=== PATIENT | female | born 1955 | race Caucasian/White ===

== ENCOUNTER 2017-02-24 20:32 | Inpatient (IN) | payer BC ==
[~2017-02-24] VITALS: Ht 154.9 cm; Wt 105.0 kg
[~2017-02-24 20:32] MED LIST: ACET-1138 PO; ASPEC325 PO; ATOR-22 PO; CITA40TA4 PO; FRRG PO; HYDR2TAB3 PO; METH500T37 PO; TRAM-10 PO
[2017-02-24] MEDS ORDERED: SODIUM CHLORIDE 0.9% 500ML 500 ML IV STA (20:57)
[2017-02-24] MEDS ORDERED: KETOROLAC TROMETHAMINE 30 MG/ML VIAL IV STA (20:57)
[2017-02-24 21:05] LABS: BASO % 0.3 %; BASO ABS # 0.02 K/uL (0-0.2); COMPLETE YES; EOS % 6.6 %; HEMATOCRIT 33.7 % (37-47); IG% 0.1 %; LYMPH % 35.6 %; LYMPH ABS # 2.57 K/uL (1.2-3.4); MEAN CELL VOLUME 92.1 fL (80-100); MEAN CORPUSCULAR HGB CONC 31.5 g/dl (32-36); MEAN PLATELET VOLUME 9.5 fL (7.4-10.4); MONO % 8.9 %; NEUT % 48.5 %; PLATELET COUNT 484 K/uL (130-400); RED BLOOD COUNT 3.66 M/uL (4.2-5.4); WHITE BLOOD COUNT 7.22 K/uL (4.8-10.8)
--- NOTE | 2017-02-24 21:15 | DIAGNOSTIC IMAGING REPORT ---
SINGLE VIEW CHEST CLINICAL HISTORY: Atypical chest pain. FINDINGS: An AP, portable, upright chest radiograph is compared to study dated 01/22/2017. The examination is degraded by portable technique, large body habitus, and apical lordotic positioning. The cardiomediastinal silhouette is unremarkable. There is nonspecific interstitial thickening. No airspace consolidation, large pleural effusion, or pneumothorax is seen. The skeletal structures are osteopenic. The bony thorax is grossly intact. IMPRESSION: No acute cardiopulmonary abnormality. Electronically signed by: Wm Davila M.D. 02/24/2017 9:13 PM Dictated Date/Time: 02/24/2017 9:12 PM
[2017-02-24 21:18] LABS: BLOOD UREA NITROGEN 13 mg/dl (7-18); BUN/CREATININE RATIO 14.2 (10-20); CARBON DIOXIDE 29 mmol/L (21-32); CHLORIDE 108 mmol/L (98-107); CREATININE 0.89 mg/dl (0.60-1.20); GLUCOSE 99 mg/dl (70-99); POTASSIUM 4.1 mmol/L (3.5-5.1); SODIUM 143 mmol/L (136-145)
[2017-02-24 21:22] LABS: CKMB/CK RATIO 1.5 (0-3.0)
--- NOTE | 2017-02-24 21:23 | EMERGENCY ROOM VISIT NOTE ---
History Report prepared by Any: Marika Patiño Under the Supervision of: Dr. Compa Melvin D.O. First contact with patient: 20:47 Chief Complaint: CHEST PAIN Stated Complaint: CHEST PAIN History of Present Illness The patient is a 62 year old female who presents to the Emergency Room with complaints of constant upper back pain starting yesterday. The pain is located in between her shoulder blades which radiates through to mid-chest. She describes the back pain to be sharp and stabbing. She describes the chest pain to be a dull ache. She has been taking pain medication without relief. She reports intermittent shortness of breath. She has worsening pain with breathing and palpation of back. She denies any pain radiation to arm or jaw. She also complains of a headache. She denies any history of similar symptoms. She does not have a history of heart attack or any issues with aorta. She has a history of hypertension. She is on Aspirin but otherwise denies any blood thinners. Pt denies change in vision, fevers, nausea, vomiting, diarrhea, pain with urination , and melena. She denies any recent trauma or falls, previous head bleeds, recent surgeries with the exception of the hip, hematuria, hemoptysis, or hematemesis. Source of History: patient Onset: yesterday Position: back (upper) Quality: sharp, stabbing Timing: constant Modifying Factors (Worsening): breathing, other (palpation of back) Modifying Factors (Relieving): other (pain medication without relief) Associated Symptoms: + SOB, + headache, No diarrhea, No fevers, No nausea, No vomiting Review of Systems See HPI for pertinent positives & negatives. A total of 10 systems reviewed and were otherwise negative. Past Medical & Surgical Medical Problems: (1) Asthma (2) Hypertension (3) Neuropathy (4) Right Hip DJD Family History Cancer Hypertension Social History Smoking Status: Former Smoker Alcohol Use: none Drug Use: none Marital Status: single Housing Status: lives with family Occupation Status: employed Current/Historical Medications Scheduled Aspirin (Aspirin Ec), 325 MG PO BID Atorvastatin (Atorvastatin Calcium), 20 MG PO HS Gabapentin (Gabapentin), 600 MG PO TID Metoprolol Succinate (Metoprolol Succinate ER), 25 MG PO QAM Trazodone Hcl (Trazodone), 50 MG PO HS Scheduled PRN Acetaminophen (Tylenol), 1,000 MG PO Q8 PRN for Pain Amitriptyline HCl (Amitriptyline HCl), 25 MG PO HS PRN for Sleep Hydromorphone Hcl (Hydromorphone Hcl), 2 MG PO Q4H PRN for Pain Methocarbamol (Methocarbamol), 500 MG PO Q8 PRN for Muscle Relaxer Tramadol HCl (Tramadol HCl), 50 MG PO Q8 PRN for Pain Allergies Coded Allergies: Codeine (Verified Adverse Reaction, Unknown, GI UPSET, 01/27/17) Oxycodone (Verified Adverse Reaction, Unknown, N/V per records , 01/27/17) Propoxyphene (Verified Adverse Reaction, Unknown, GI UPSET, 01/27/17) Physical Exam Vital Signs Date Time Temp Pulse Resp B/P Pulse Ox O2 Delivery O2 Flow Rate FiO2 02/24/17 23:20 77 18 153/87 95 02/24/17 21:52 81 18 143/82 95 Room Air 02/24/17 21:03 75 02/24/17 20:45 95 Room Air 02/24/17 20:35 36.7 86 18 151/98 95 Room Air Physical Exam GENERAL: Sitting up in bed, disheveled, no acute distress, non-toxic EYE EXAM: normal conjunctiva, PERRL and EOM's grossly intact OROPHARYNX: no exudate, no erythema, lips, buccal mucosa, and tongue normal and mucous membranes are moist NECK: supple, no nuchal rigidity, no adenopathy, non-tender CHEST: No reproducible tenderness. LUNGS: Clear to auscultation. Normal chest wall mechanics HEART: no murmurs, S1 normal and S2 normal ABDOMEN: abdomen soft, non-tender, normo-active bowel sounds, no masses, no rebound or guarding. BACK: Back is symmetrical on inspection and there is no deformity, no midline tenderness, no CVA tenderness. Acute reproducible tenderness in the upper thoracic region. SKIN: no rashes and no bruising UPPER EXTREMITIES: upper extremities are grossly normal. LOWER EXTREMITIES: No pitting edema. Calves are equal bilaterally. NEURO EXAM: Normal sensorium, cranial nerves II-XII grossly intact, normal speech, no gross weakness of arms, no gross weakness of legs. Medical Decision & Procedures ER Provider Diagnostic Interpretation: X-ray results as stated below per my review and the radiologist's interpretation : SINGLE VIEW CHEST CLINICAL HISTORY: Atypical chest pain. FINDINGS: An AP, portable, upright chest radiograph is compared to study dated 01/22/2017. The examination is degraded by portable technique, large body habitus, and apical lordotic positioning. The cardiomediastinal silhouette is unremarkable. There is nonspecific interstitial thickening. No airspace consolidation, large pleural effusion, or pneumothorax is seen. The skeletal structures are osteopenic. The bony thorax is grossly intact. IMPRESSION: No acute cardiopulmonary abnormality. Electronically signed by: Wm Davila M.D. 02/24/2017 9:13 PM Dictated Date/Time: 02/24/2017 9:[address]:Per my review, radiologist interpretation. CT ANGIOGRAM OF THE CHEST CLINICAL HISTORY: Atypical chest pain. COMPARISON STUDY: Chest x-ray dated 02/24/2017. TECHNIQUE: Following the IV administration of 115 cc of Optiray 320, CT angiogram of the chest was performed from the upper abdomen to the thoracic inlet utilizing the pulmonary embolus protocol. Images are reviewed in the axial, sagittal, and coronal planes. 3-D MIPS images are created and assessed. IV contrast was administered without complication. CT DOSE: 612.73 mGy.cm FINDINGS: Thyroid: Imaged portions of the thyroid gland are normal in size and attenuation. Thoracic aorta: There is mild atherosclerotic calcification of the thoracic aorta, which is normal in caliber and demonstrates bovine variant arch anatomy. No dissection is seen. Pulmonary vasculature: The pulmonary trunk is normal in caliber. There is pulmonary embolus within the right middle lobe pulmonary artery which extends into segmental and subsegmental branches. Segmental and subsegmental pulmonary emboli also seen within branches of the right lower and and left lower lobe pulmonary arteries. Trace pulmonary embolus is also seen in the right upper lobe segmental and subsegmental vessels. Heart: The heart is mildly enlarged and without pericardial effusion. There are coronary artery calcifications. Lungs and pleural spaces: There is no airspace consolidation typical for pneumonia or pleural effusion. Linear atelectasis is seen in the lingula. Mild air trapping is suggested in the lower lobes. The trachea and central airways are clear. Mediastinum: There are scattered subcentimeter mediastinal lymph nodes. These are not pathologically enlarged by size criteria. Gracia: Clear. Axillae: There is no axillary lymphadenopathy. Upper abdomen: Partially visualized upper abdominal viscera is within normal limits. Skeletal structures: The skeletal structures are osteopenic. Degenerative changes noted throughout the thoracic spine. No lytic or blastic bony lesions are seen. IMPRESSION: 1. Pulmonary emboli as detailed above, predominantly within the segmental and subsegmental branches of the right middle, right lower, and left lower lobes. 2. There is no airspace consolidation or pleural effusion. Air trapping is suggested in the lower lobes. 3. Mild cardiomegaly. Electronically signed by: Wm Davila M.D. 02/24/2017 9:59 PM Dictated Date/Time: 02/24/2017 9:53 PM Laboratory Results 02/24/17 20:46 Red Blood Count 3.66, Mean Corpuscular Volume 92.1, Mean Corpuscular Hemoglobin 29.0, Mean Corpuscular Hemoglobin Concent 31.5, Mean Platelet Volume 9.5, Neutrophils (%) (Auto) 48.5, Lymphocytes (%) (Auto) 35.6, Monocytes (%) (Auto) 8.9, Eosinophils (%) (Auto) 6.6, Basophils (%) (Auto) 0.3, Neutrophils # (Auto) 3.50, Lymphocytes # (Auto) 2.57, Monocytes # (Auto) 0.64, Eosinophils # (Auto) 0.48, Basophils # (Auto) 0.02 02/24/17 20:46 Test 02/24/17 20:46 02/24/17 21:16 02/24/17 22:50 White Blood Count 7.22 K/uL (4.8-10.8) Red Blood Count 3.66 M/uL (4.2-5.4) Hemoglobin 10.6 g/dL (12.0-16.0) Hematocrit 33.7 % (37-47) Mean Corpuscular Volume 92.1 fL (80-100) Mean Corpuscular Hemoglobin 29.0 pg (25-34) Mean Corpuscular Hemoglobin Concent 31.5 g/dl (32-36) Platelet Count 484 K/uL (130-400) Mean Platelet Volume 9.5 fL (7.4-10.4) Neutrophils (%) (Auto) 48.5 % Lymphocytes (%) (Auto) 35.6 % Monocytes (%) (Auto) 8.9 % Eosinophils (%) (Auto) 6.6 % Basophils (%) (Auto) 0.3 % Neutrophils # (Auto) 3.50 K/uL (1.4-6.5) Lymphocytes # (Auto) 2.57 K/uL (1.2-3.4) Monocytes # (Auto) 0.64 K/uL (0.11-0.59) Eosinophils # (Auto) 0.48 K/uL (0-0.5) Basophils # (Auto) 0.02 K/uL (0-0.2) RDW Standard Deviation 48.9 fL (36.4-46.3) RDW Coefficient of Variation 14.4 % (11.5-14.5) Immature Granulocyte % (Auto) 0.1 % Immature Granulocyte # (Auto) 0.01 K/uL (0.00-0.02) Anion Gap 6.0 mmol/L (3-11) Est Creatinine Clear Calc Drug Dose 75.7 ml/min Estimated GFR () 81.6 Estimated GFR (Non- 70.4 BUN/Creatinine Ratio 14.2 (10-20) Calcium Level 9.2 mg/dl (8.5-10.1) Magnesium Level 2.3 mg/dl (1.8-2.4) Total Creatine Kinase 73 U/L (26-192) Creatine Kinase MB 1.1 ng/ml (0.5-3.6) Creatine Kinase MB Ratio 1.5 (0-3.0) Troponin I < 0.015 ng/ml (0-0.045) Bedside D-Dimer > 450 ng/mlFEU (0-450) Prothrombin Time 10.0 SECONDS (9.0-12.0) Prothromb Time International Ratio 0.9 (0.9-1.1) Activated Partial Thromboplast Time 30.6 SECONDS (21.0-31.0) Partial Thromboplastin Ratio 1.2 Laboratory results per my review. Medications Administered Medications (Trade) Dose Ordered Sig/Phoebe Route Start Time Stop Time Status Last Admin Dose Admin Ketorolac Tromethamine 30 mg 30 mg NOW STAT IV 02/24/17 20:57 02/24/17 20:58 DC 02/24/17 21:11 30 MG Sodium Chloride (Nss 500ml) 500 ml @ 999 mls/hr Q31M STAT IV 02/24/17 20:57 02/24/17 21:27 DC 02/24/17 20:57 999 MLS/HR Heparin Sodium/ Dextrose 1 ea NOW STAT N/A 02/24/17 22:06 02/24/17 22:07 DC 02/24/17 23:05 1 EA Heparin Sodium (Porcine) (Heparin Sq 5000 Unit/0.5ml) 10,000 unit STK-MED ONCE .ROUTE 02/24/17 22:30 02/24/17 22:31 DC 02/24/17 23:02 5,000 UNIT Heparin Sodium/ Dextrose (Heparin 25,000 Unit/500ml D5W) 25,000 unit STK-MED ONCE .ROUTE 02/24/17 22:31 02/24/17 22:32 DC 02/24/17 23:04 25,000 UNIT ECG Indication: chest pain, back/shoulder pain Rate (beats per minute): 86 Rhythm: sinus rhythm Findings: no ectopy, other (normal axis; normal intervals) ED Course ED COURSE: Vital signs were reviewed and showed hypertensive. The patients medical record was reviewed The above diagnostic studies were performed and reviewed. ED treatments and interventions as stated above. 2046: The patient was evaluated in room C03. A complete history and physical examination was performed. 2056: Sodium Chloride 500 ml @ 999 mls/hr IV, Toradol Inj 30 mg IV 2205: Heparin Sodium/Dextrose 1 ea N/A. I reevaluated the patient. She denies any recent trauma or falls, previous head bleeds, recent surgeries with the exception of the hip, hematuria, hemoptysis, or hematemesis. 2229: I discussed the patient's case with Dr. Jj, from [facility]. 2236: Upon reevaluation, the patient is resting comfortably.I discussed my findings with the patient and she understands and agrees with the treatment plan. Based on the patients age, coexisting illnesses, exam and lab findings the decision to treat as an inpatient was made. The patient remained stable while under my care. The patient will be evaluated for further management. Medical Decision Differential diagnoses includes but is not limited to lumbar radiculopathy, muscle strain, facture, cauda equina, mass, and disc herniation. Blood pressure screening: Patient was found to have an elevated blood pressure and was referred to their primary doctor for recheck and further treatment. Medication Reconciliation: I attest that I have personally reviewed the patient' s current medication list. Patient is a 62-year-old female who presents the ER for upper back pain associated with chest pain. She is clearly reproducible thoracic paraspinal tenderness which I do favor it is musculoskeletal. She also has a component of chest pain and dyspnea. CBC was unremarkable. She had a recent hip surgery. D -dimer was elevated. CT PE shows multiple right-sided PEs. Vitals were stable. Troponin was not elevated. Patient had no bleeding risk factors and consequently was given a heparin drip and bolus and admitted to internal medicine with multiple right-sided PEs. Consults Time Called: [phone] Consulting Physician: Dr. Jj, from [facility] Returned Call: [phone] I discussed the patient's case with Dr. Jj, from [facility]. Impression Primary Impression: Pulmonary embolism Additional Impression: Musculoskeletal back pain Critical Care I have personally spent greater than 35 minutes of critical care time in the direct management of this patient. This includes bedside care, interpretation of diagnostic studies, and testing, discussion with consultants, patient, and family members, and other required patient management activities. This 35 minutes is in excess of all separately billable procedures. Scribe Attestation The scribe's documentation has been prepared under my direction and personally reviewed by me in its entirety. I confirm that the note above accurately reflects all work, treatment, procedures, and medical decision making performed by me. Departure Information Dispostion Being Evaluated By Hospitalist Referrals Debora Khan D.O. (PCP) Patient Instructions My [facility] Problem Qualifiers Primary Impression: Pulmonary embolism Pulmonary embolism type: other Chronicity: acute Acute cor pulmonale presence: with acute cor pulmonale Qualified Codes: I26.09 - Other pulmonary embolism with acute cor pulmonale
[2017-02-24] MEDS ORDERED: OPTIRAY 320 IV PRN (22:00)
--- NOTE | 2017-02-24 22:00 | DIAGNOSTIC IMAGING REPORT ---
CT ANGIOGRAM OF THE CHEST CLINICAL HISTORY: Atypical chest pain. COMPARISON STUDY: Chest x-ray dated 02/24/2017. TECHNIQUE: Following the IV administration of 115 cc of Optiray 320, CT angiogram of the chest was performed from the upper abdomen to the thoracic inlet utilizing the pulmonary embolus protocol. Images are reviewed in the axial, sagittal, and coronal planes. 3-D MIPS images are created and assessed. IV contrast was administered without complication. CT DOSE: 612.73 mGy.cm FINDINGS: Thyroid: Imaged portions of the thyroid gland are normal in size and attenuation. Thoracic aorta: There is mild atherosclerotic calcification of the thoracic aorta, which is normal in caliber and demonstrates bovine variant arch anatomy. No dissection is seen. Pulmonary vasculature: The pulmonary trunk is normal in caliber. There is pulmonary embolus within the right middle lobe pulmonary artery which extends into segmental and subsegmental branches. Segmental and subsegmental pulmonary emboli also seen within branches of the right lower and and left lower lobe pulmonary arteries. Trace pulmonary embolus is also seen in the right upper lobe segmental and subsegmental vessels. Heart: The heart is mildly enlarged and without pericardial effusion. There are coronary artery calcifications. Lungs and pleural spaces: There is no airspace consolidation typical for pneumonia or pleural effusion. Linear atelectasis is seen in the lingula. Mild air trapping is suggested in the lower lobes. The trachea and central airways are clear. Mediastinum: There are scattered subcentimeter mediastinal lymph nodes. These are not pathologically enlarged by size criteria. Gracia: Clear. Axillae: There is no axillary lymphadenopathy. Upper abdomen: Partially visualized upper abdominal viscera is within normal limits. Skeletal structures: The skeletal structures are osteopenic. Degenerative changes noted throughout the thoracic spine. No lytic or blastic bony lesions are seen. IMPRESSION: 1. Pulmonary emboli as detailed above, predominantly within the segmental and subsegmental branches of the right middle, right lower, and left lower lobes. 2. There is no airspace consolidation or pleural effusion. Air trapping is suggested in the lower lobes. 3. Mild cardiomegaly. Electronically signed by: Wm Davila M.D. 02/24/2017 9:59 PM Dictated Date/Time: 02/24/2017 9:53 PM
[2017-02-24 22:01] LABS: CALCIUM 9.2 mg/dl (8.5-10.1)
[2017-02-24] MEDS ORDERED: HYDR2TAB2 PO (22:09)
[2017-02-24] MEDS ORDERED: ULT50 PO (22:09)
[2017-02-24] MEDS ORDERED: ASPI325T39 PO (22:09)
[2017-02-24] MEDS ORDERED: HEPARIN SOD 5000 UNIT/0.5 ML CARP ONE (22:30)
[2017-02-24] MEDS ORDERED: HEPARIN 25000 UNIT/500 ML D5W ONE (22:31)
[2017-02-24 23:08] LABS: INR 0.9 (0.9-1.1); PARTIAL THROMBOPLASTIN RATIO 1.2
[2017-02-24] MEDS ORDERED: LORAZEPAM 2 MG/ML 1 ML VIAL IV PRN (23:30)
[2017-02-24] MEDS ORDERED: MoRPHine SULFATE 4 MG/ML 1 ML CARP\\VIAL IV PRN (23:30)
[2017-02-24] MEDS ORDERED: AMITRIPTYLINE HCL 25 MG TAB PO PRN (23:30)
[2017-02-24] MEDS ORDERED: HYDROmorphone HCL 2 MG TAB PO PRN (23:30)
[2017-02-25] VITALS (8 sets, daily range): BP systolic 113–158; BP diastolic 51–91; PULSE 69–82; TEMP 36.3–36.9; O2SAT 92–97; Ht 154.9 cm; Wt 105.0 kg
[2017-02-25] MEDS ORDERED: SODIUM CHLORIDE 0.45% 1000ML 1,000 ML IV ONE (00:30)
[2017-02-25] MEDS: TRAMADOL HCL 50 MG TAB PO PRN ×3 (00:42→21:11)
[2017-02-25] MEDS: TRAZODONE HCL 50 MG TAB PO SCH ×3 (00:43→22:00)
[2017-02-25] MEDS ORDERED: SODIUM CHLORIDE 0.65% NA SOLN 45 ML (OCEAN) ONE (00:46)
[2017-02-25] MEDS ORDERED: HEPARIN IV LOW DOSE NO BOLUS STA (00:46)
[2017-02-25] MEDS ORDERED: SODIUM CHLORIDE 0.65% NA SOLN 45 ML (OCEAN) PRN (01:00)
[2017-02-25] MEDS: ONDANSETRON INJ 2 MG/ML 2 ML VIAL IV PRN ×2 (03:35→08:16)
--- NOTE | 2017-02-25 04:50 | HISTORY & PHYSICAL EXAMINATION ---
DATE OF ADMISSION: 02/24/2017 PRIMARY CARE DOCTOR: Dr. Khan CHIEF COMPLAINT: Shortness of breath and chest pain. HISTORY OF PRESENT ILLNESS: History was obtained from patient and records. Medical history is significant for pulmonary embolism status post anticoag, hypertension, asthma, arthritis, past tobacco abuse, chronic anemia (baseline hemoglobin of 11 since 2013). Last month, the patient underwent elective right total hip replacement for severe osteoarthritis. Postop the patient was discharged on aspirin 325 mg twice a day for the next 45 days. Patient is compliant with medication. About 2 days ago, the patient noted upper back pain, sharp, going to her mid chest with some shortness of breath, pleuritic. Patient is also complaining of nasal congestion, frontal headache symptoms and dry cough. Patient also noted achy right leg swelling and pain. At the Emergency Room CAT scan showed bilateral pulmonary emboli. Px started on IV Heparin. MEDICAL HISTORY: As above. History of pulmonary embolism related to trauma sp coumadin as per px (1980s) SURGERIES: Hip replacement, hysterectomy, neck surgery, carpal tunnel surgery, tonsillectomy and adenectomy. HOME MEDICATIONS: Include; aspirin, Tylenol, amitriptyline, atorvastatin, gabapentin, hydromorphone, methocarbamol, metoprolol, tramadol and trazodone. ALLERGIES: TO CODEINE, OXYCODONE AND PROPOXYPHENE. FAMILY HISTORY: Blood clots. PERSONAL AND SOCIAL HISTORY: Past tobacco abuse. 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 REVIEW OF SYSTEMS: As per HPI, all other ROS negative. PHYSICAL EXAMINATION: VITAL SIGNS: Blood pressure was noted to be 151/90, pulse rate 86, RR 18, temperature 36.7 and sats 95 on room air. GENERAL: Noted to be obese, slightly uncomfortable, in no respiratory distress. SKIN: Pallor. HEENT: Pale palpebral conjunctivae. Dry mucosa. NECK: Short neck. LUNGS: Decreased breath sounds. HEART: Regular rate and rhythm. ABDOMEN: Soft. EXTREMITIES: Minimal swelling, right leg, no tenderness NEUROLOGIC: No gross focality. LABORATORIES: Hemoglobin is noted to be 10.6, hematocrit 30.7, white cells 7.2 platelets 244. Sodium 140, potassium 4.1, chloride 108, CO2 of 29, BUN 13, creatinine 0.8, glucose was noted to be 99. Troponin; normal. CTA as above Head CT: No acute pathology. EKG; as per my interpretation : rate of 85, normal sinus rhythm, no ischemia. ASSESSMENT: 1. Recurrent pulmonary embolism recent right hip surgery ro LE as source of clots aspirin failure 2. Hypertension, slightly elevated 3. postop anemia acute on chronic 4. past tobacco abuse. 5. hx asthma, stable PLAN: PCU IV heparin for now px may need lifelong anticoagulation choice of oral anticoagulant following discussion between AM provider and patient LE dopplers ro dvt Orthopedics consult (Dr. Jane) Re Postop evaluation. DVT prophylaxis, heparin for now. Full code. Case d/w Dr. Gaming (orthopedic doctor application performance engineer). He is agreeable to IV heparin for now. MTDD
[2017-02-25 05:17] LABS: BASO % 0.3 %; BASO ABS # 0.02 K/uL (0-0.2); COMPLETE YES; EOS % 7.8 %; HEMATOCRIT 28.8 % (37-47); LYMPH % 41.6 %; LYMPH ABS # 2.49 K/uL (1.2-3.4); MEAN CORPUSCULAR HEMOGLOBIN 29.4 pg (25-34); MEAN CORPUSCULAR HGB CONC 31.9 g/dl (32-36); MEAN PLATELET VOLUME 9.3 fL (7.4-10.4); MONO % 9.7 %; NEUT % 40.6 %; PLATELET COUNT 379 K/uL (130-400); RED BLOOD COUNT 3.13 M/uL (4.2-5.4); WHITE BLOOD COUNT 5.99 K/uL (4.8-10.8)
[2017-02-25 05:37] LABS: PARTIAL THROMBOPLASTIN RATIO 2.7
[2017-02-25] MEDS: HEPARIN 25,000 UNIT/500ML D5W 500 ML IV PRN ×2 (06:46→14:36)
--- NOTE | 2017-02-25 07:11 | DIAGNOSTIC IMAGING REPORT ---
RIGHT LOWER EXTREMITY VENOUS DOPPLER CLINICAL HISTORY: Right lower extremity pain and swelling. COMPARISON STUDY: No previous studies for comparison. TECHNIQUE: Sonography of the deep venous system of the right lower extremity was performed. Compression and augmentation were evaluated. FINDINGS: The common femoral, superficial femoral and popliteal veins were compressible. Augmentation was normal. Flow was shown within the deep calf vessels. IMPRESSION: No evidence of deep venous thrombus within the right lower extremity. Electronically signed by: Dima Garrison M.D. 02/25/2017 7:09 AM Dictated Date/Time: 02/25/2017 7:09 AM
--- NOTE | 2017-02-25 07:16 | DIAGNOSTIC IMAGING REPORT ---
HEAD CT NONCONTRAST CT DOSE: 537.48 mGy.cm HISTORY: Headache. TECHNIQUE: Multiaxial CT images of the head were performed without the use of intravenous contrast. Automated exposure control was utilized for this study. Comparison: None. Findings: Complete opacification of the right frontal sinus. The mastoid air cells are clear. The calvarium and skull base are intact. The ventricles and sulci are within normal limits. There is no mass, hematoma, midline shift, or acute infarct. Impression: No acute intracranial abnormality. Complete opacification of the right frontal sinus. Electronically signed by: Donald Landaverde M.D. 02/25/2017 7:15 AM Dictated Date/Time: 02/25/2017 7:13 AM
[2017-02-25] MEDS: GABAPENTIN 600 MG TAB PO SCH ×3 (08:18→20:03)
[2017-02-25] MEDS: METOPROLOL SUCC 25MG EXT REL TAB PO SCH (08:18)
--- NOTE | 2017-02-25 10:02 | ORTHOPEDIC CONSULTATION ---
DATE OF CONSULTATION: 02/25/2017 SUBJECTIVE: A 62-year-old female now, 4 weeks out from right total hip replacement. She has done pretty well from the hip replacement. She does have this remote history of clot in the 1980s from a trauma, that I had questioned her out before, but was unsure, it was a real blood clot. She has no further blood clots or pulmonary emboli since then. She is now 4 weeks out from a total hip replacement. She started to develop some back pain on Thursday and then developed a pretty severe headache on Thursday. She came to the ER yesterday with increasing interscapular type pain and headache. She was seen in the ER. A chest CT revealed pulmonary emboli and she has been admitted by the medicine service for anticoagulation. Denies any current chest pain. She did have some shortness of breath several days ago, but this has kind of resolved, but she continues to have this interscapular pain some. Headache seems to be resolved. Hip has been doing well. She has got pretty minimal pain. She is getting around with a cane. OBJECTIVE: VITAL SIGNS: Temperature is 36.7. Vital signs stable. O2 sats 94%. PHYSICAL EXAMINATION: GENERAL: Reveals a pleasant, middle-aged female. She is sitting up in her bedside chair and looks pretty comfortable. EXTREMITIES: Examination of the right hip reveals incision to be healed nice. Leg lengths were equal. Hip is located. She is neurologically intact. LABORATORY DATA: Hemoglobin 9.2. Hematocrit 28.8. Her PTT is 2.7. Electrolytes are stable. IMAGING: CT scan reveals pulmonary embolism. Lower extremity ultrasound shows no evidence of DVT in the right lower extremity. Head CT is normal. ASSESSMENT: A 62-year-old obese female, now 4 weeks out from right total hip replacement with pulmonary embolism. This probably does account for interscapular pain. She does have a remote history of a clot in the 80s, but nothing since then and no known clotting disorder. PLAN: The patient has been admitted to by the medicine service. She obviously been anticoagulation and needs anticoagulated. She looks medically and orthopedically stable. She just needs to resume therapy when medically stable. She should obey hip precautions. Her DVT prophylaxis would now be TEDs and anticoagulation as per the medicine service. Any orthopedic questions can be directed to me at [phone]. There is really not much in the way of orthopedic intervention needed at this point other than therapy. MTDD
[2017-02-25] MEDS ORDERED: PROMETHAZINE HCL INJ 12.5 MG in SODIUM CHLORIDE 0.9% 50ML 50 ML IV PRN (13:00)
[2017-02-25] MEDS: ACETAMINOPHEN 325 MG TAB PO PRN (13:45)
[2017-02-25 13:53] LABS: PARTIAL THROMBOPLASTIN RATIO 1.5
[2017-02-25] MEDS ORDERED: HEPARIN IV BOLUS 4,500 UNIT in SYRINGE 0 ML IV ONE (14:30)
[2017-02-25] MEDS: WARFARIN SOD 5 MG TAB PO SCH (15:38)
[2017-02-25] MEDS ORDERED: ENOXAPARIN 1 MG/KG SQ SCH (19:15)
--- NOTE | 2017-02-25 19:28 | Progress Note ---
Internal Med Progress Note Date of Service: February 25, 2017. Provider Documentation: SUBJECTIVE: still having chest pain with deep breath no complain of SOB had episode of nausea with emesis earlier today feels better after Zofran and Phenergan OBJECTIVE: Vital Signs-as noted below Exam: General-no sign of distress Eyes-sclera non icteric Lungs-CTA Heart-regular S1/S2 Abdomen-soft, non tender Extremities-healed surgical scar on right hip , trace lower ext edema Neuro-no focal deficit , AAO x3 Lab data as noted below. ASSESSMENT & PLAN: BILATERAL PE: presented with pleuritic chest pain CTA of chest showed segmental /subsegmental PE in right side risk factor for thromboembolism -recent rt hip surgery Doppler rt lower ext negative for DVT prior hx of DVT years back initially was started on IV heparin wt based protocol will transition to Lovenox sub q today started on Coumadin Goal INR 2-3 will need overlap tx for at least 5 days can be discharged home with Lovenox bridge therapy need to be followed up at the Coumadin clinic at [facility] ECHO ordered to assess Rt heart strain pt may need long term acute care registered nurse /life long anticoagulation -given it is second episode / significant clot burden in Lung stable to transfer to Medical floor RECENT RT HIP REPLACEMENT STATUS : had rt hip replacement done approx [address] Jane recovered well post op was at [facility] for 2 weeks discharged home 1 week back has been mobile , ambulatory since discharged home appreciate input form Orthopedic no contraindication for standard anticoagulation for Acute PE NAUSEA /VOMITING : not sure of the etiology mentions of having nausea after IV pain meds abdominal exam benign did not had bowel movement for past 2 days bowel regimen ordered asked to increased activity as tolerated will limit narcotic pain meds FULL CODE DVT PROPHYLAXIS Lovenox therapeutic dose bridge therapy /Coumadin DISPOSITION Plan to discharge home with Lovenox bridge when medically stable /improved chest pain Medicine follow up with Dr Moy at [facility] Coumadin clinic follow up at [facility] Vital Signs: Date Time Temp Pulse Resp B/P Pulse Ox O2 Delivery O2 Flow Rate FiO2 02/25/17 16:00 Room Air 02/25/17 15:24 36.7 74 18 128/73 94 Room Air 02/25/17 12:00 Room Air 02/25/17 11:16 36.9 71 18 113/61 92 Room Air 02/25/17 08:02 36.7 75 18 116/72 94 Room Air 02/25/17 08:00 Room Air 02/25/17 04:00 Room Air 02/25/17 03:36 36.5 69 18 145/82 95 Room Air 02/25/17 00:54 36.6 79 18 144/91 97 Room Air 02/24/17 23:20 77 18 153/87 95 02/24/17 21:52 81 18 143/82 95 Room Air 02/24/17 21:03 75 02/24/17 20:45 95 Room Air 02/24/17 20:35 36.7 86 18 151/98 95 Room Air Lab Results: Results Past 24 Hours Test 02/24/17 20:46 02/24/17 21:16 02/24/17 22:50 02/25/17 05:07 Range/Units White Blood Count 7.22 5.99 4.8-10.8 K/uL Red Blood Count 3.66 3.13 4.2-5.4 M/uL Hemoglobin 10.6 9.2 12.0-16.0 g/dL Hematocrit 33.7 28.8 37-47 % Mean Corpuscular Volume 92.1 92.0 80-100 fL Mean Corpuscular Hemoglobin 29.0 29.4 25-34 pg Mean Corpuscular Hemoglobin Concent 31.5 31.9 32-36 g/dl Platelet Count 484 379 130-400 K/uL Mean Platelet Volume 9.5 9.3 7.4-10.4 fL Neutrophils (%) (Auto) 48.5 40.6 % Lymphocytes (%) (Auto) 35.6 41.6 % Monocytes (%) (Auto) 8.9 9.7 % Eosinophils (%) (Auto) 6.6 7.8 % Basophils (%) (Auto) 0.3 0.3 % Neutrophils # (Auto) 3.50 2.43 1.4-6.5 K/uL Lymphocytes # (Auto) 2.57 2.49 1.2-3.4 K/uL Monocytes # (Auto) 0.64 0.58 0.11-0.59 K/uL Eosinophils # (Auto) 0.48 0.47 0-0.5 K/uL Basophils # (Auto) 0.02 0.02 0-0.2 K/uL RDW Standard Deviation 48.9 48.1 36.4-46.3 fL RDW Coefficient of Variation 14.4 14.4 11.5-14.5 % Immature Granulocyte % (Auto) 0.1 0.0 % Immature Granulocyte # (Auto) 0.01 0.00 0.00-0.02 K/uL Sodium Level 143 136-145 mmol/L Potassium Level 4.1 3.5-5.1 mmol/L Chloride Level 108 98-107 mmol/L Carbon Dioxide Level 29 21-32 mmol/L Anion Gap 6.0 3-11 mmol/L Blood Urea Nitrogen 13 7-18 mg/dl Creatinine 0.89 0.60-1.20 mg/dl Est Creatinine Clear Calc Drug Dose 75.7 ml/min Estimated GFR () 81.6 Estimated GFR (Non- 70.4 BUN/Creatinine Ratio 14.2 10-20 Random Glucose 99 70-99 mg/dl Calcium Level 9.2 8.5-10.1 mg/dl Magnesium Level 2.3 1.8-2.4 mg/dl Total Creatine Kinase 73 26-192 U/L Creatine Kinase MB 1.1 0.5-3.6 ng/ml Creatine Kinase MB Ratio 1.5 0-3.0 Troponin I < 0.015 < 0.015 0-0.045 ng/ml Bedside D-Dimer > 450 0-450 ng/mlFEU Prothrombin Time 10.0 9.0-12.0 SECONDS Prothromb Time International Ratio 0.9 0.9-1.1 Activated Partial Thromboplast Time 30.6 69.9 21.0-31.0 SECONDS Partial Thromboplastin Ratio 1.2 2.7 Test 02/25/17 13:27 Range/Units Activated Partial Thromboplast Time 39.5 21.0-31.0 SECONDS Partial Thromboplastin Ratio 1.5
[2017-02-25] MEDS ORDERED: LOVENOX TEACHING KIT ONE (20:00)
[2017-02-25] MEDS: ENOXAPARIN 100 MG/1ML SYR SQ SCH (20:00)
[2017-02-25] MEDS: DOCUSATE SODIUM 100 MG CAP PO SCH (20:01)
[2017-02-25] MEDS: ATORVASTATIN 20 MG TAB PO SCH ×2 (20:02→22:00)
[2017-02-25] MEDS: FERROUS GLUCONATE 324 MG TAB PO SCH (20:02)
[2017-02-25] MEDS: METHOCARBAMOL 500 MG TAB PO PRN (21:57)
[2017-02-26] VITALS: O2SAT 97
[2017-02-26 07:16] LABS: HEMATOCRIT 32.1 % (37-47)
[2017-02-26 07:28] LABS: PROTHROMBIN TIME (PATIENT) 10.6 SECONDS (9.0-12.0)
[2017-02-26 07:35] VITALS: BP 119/78; PULSE 80; TEMP 36.8; O2SAT 98
--- NOTE | 2017-02-26 07:46 | PROGRESS NOTE ---
DATE: 02/26/2017 SUBJECTIVE: 62-year-old female now 4 weeks out from a right total hip replacement complicated by recent PE. She is doing well. Still a little interscapular pain but in general feeling better. Denies any chest pain or shortness of breath. OBJECTIVE: VITAL SIGNS: Temperature 36.3. Vital signs stable. PHYSICAL EXAMINATION: GENERAL: Pleasant middle-aged female. The patient is sitting up in bed, looks completely comfortable. EXTREMITIES: Examination of the right hip reveals the incision is healing nicely. Leg lengths were equal. No significant swelling. Hip is located. She is neurologically intact. LABORATORY DATA: Hemoglobin 10.1, hematocrit 32.1. INR pending. ASSESSMENT: 62-year-old female 4 weeks out from a right total hip replacement with a recent PE. From an orthopedic standpoint, she is doing well. She seems stable medically, but obviously needs anticoagulated. PLAN: We will allow medical management as per the anticoagulation. She is on Lovenox and going to be placed on Coumadin. She is orthopedically stable and acceptable for discharge any time medically stable from the PE standpoint. She is already scheduled to see me back in 2 weeks. She should continue to obey hip precautions and that is really all she needs from the orthopedic standpoint. Any orthopedic questions can be directed to me at [phone].
[2017-02-26 07:50] LABS: CREATININE 0.68 mg/dl (0.60-1.20)
[2017-02-26] MEDS: TRAMADOL HCL 50 MG TAB PO PRN ×2 (07:52→21:40)
[2017-02-26] MEDS: DOCUSATE SODIUM 100 MG CAP PO SCH ×2 (07:54→20:45)
[2017-02-26] MEDS: FERROUS GLUCONATE 324 MG TAB PO SCH ×2 (07:54→17:40)
[2017-02-26] MEDS: GABAPENTIN 600 MG TAB PO SCH ×3 (07:54→20:46)
[2017-02-26] MEDS: METOPROLOL SUCC 25MG EXT REL TAB PO SCH (07:54)
[2017-02-26] MEDS: ENOXAPARIN 100 MG/1ML SYR SQ SCH ×2 (07:55→20:46)
[2017-02-26] MEDS: POLYETHYLENE (MIRALAX) 17 GM PACK PO SCH (07:55)
[2017-02-26 08:00] VITALS: O2SAT 98
[2017-02-26] MEDS: ACETAMINOPHEN 325 MG TAB PO PRN (09:21)
[2017-02-26] MEDS: METHOCARBAMOL 500 MG TAB PO PRN (12:43)
[2017-02-26 14:56] VITALS: BP 105/58; PULSE 86; TEMP 36.8; O2SAT 93
[2017-02-26] MEDS: WARFARIN SOD 5 MG TAB PO SCH (15:57)
[2017-02-26 16:00] VITALS: O2SAT 93
--- NOTE | 2017-02-26 16:46 | ECHOCARDIOGRAM REPORT ---
*NOTICE TO RECEIVING [employer]Y This information is strictly Confidential and protected under [place] law. [place] law prohibits you from making any further disclosure of this information unless further disclosure is expressly permitted by the written consent of the person to whom it pertains or is authorized by law. A general authorization for the release of medical or other information is not sufficient for this purpose. Hospital accepts no responsibility if the information is made available to any other person, INCLUDING THE PATIENT. Interpretation Summary * Name: RADHA REYES Study Date: 02/26/2017 10:38 AM BP: 119/78 mmHg * Patient Location: [id number] HR: 80 * : 1955 (M/d/yyyy) Gender: Female Height: 61 in * Age: 62 yrs Ethnicity: CA Weight: 231 lb * Ordering Physician: Sahara Peña * Referring Physician: Debora Khan D.O. * Performed By: Mirela Lozada RDCS * * Reason For Study: PE, RULE OUT RV STRAIN * BSA: 2.0 m2 * -- Conclusions -- * The right ventricle is normal size. * The right ventricular systolic function is normal. * Left ventricular systolic function is normal. * Ejection Fraction = 55-60%. * The left atrial size is normal. * Right atrial size is normal. * No significant valvular pathology. Procedure Details * A contrast injection of Definity was performed to improve assessment of LV function. * Contrast was injected into an intravenous site in the left arm. * One vial of Definity ultrasound contrast was diluted in normal saline to a total volume of 10 ml. A total of '2' ml of solution was administered during imaging. * Lot # [id number] of Definity utilized for procedure. * Expiration date 1 APR 14. * The attending nurse who injected the contrast agent was ODIN MACKEY RN. Left Ventricle * The left ventricle is normal in size. * There is normal left ventricular wall thickness. * Ejection Fraction = 55-60%. * Left ventricular systolic function is normal. Right Ventricle * The right ventricle is normal size. * The right ventricular systolic function is normal. Atria * The left atrial size is normal. * Right atrial size is normal. * The interatrial septum is intact with no evidence for an atrial septal defect. Mitral Valve * The mitral valve is grossly normal. * Significant mitral regurgitation is absent. Tricuspid Valve * The tricuspid valve is not well visualized, but is grossly normal. * Significant tricuspid regurgitation is absent. Great Vessels * The aortic root and proximal ascending aorta are normal sized. Pericardium/Pleural * There is no pericardial effusion. MMode 2D Measurements and Calculations IVSd 1.1 cm IVSs 1.6 cm LVIDd 4.9 cm LVIDs 3.3 cm LVPWd 1.1 cm LVPWs 1.4 cm IVS/LVPW 0.98 FS 31.9 % EDV(Teich) 112.3 ml ESV(Teich) 45.1 ml EF(Teich) 59.8 % EDV(cubed) 116.9 ml ESV(cubed) 36.9 ml EF(cubed) 68.4 % % IVS thick 47.7 % % LVPW thick 25.4 % LV mass(C)d 204.4 grams LV mass(C)dI 101.8 grams/m\S\2 LV mass(C)s 186.2 grams LV mass(C)sI 92.7 grams/m\S\2 SV(Teich) 67.1 ml SI(Teich) 33.4 ml/m\S\2 SV(cubed) 80.0 ml SI(cubed) 39.8 ml/m\S\2 Ao root diam 2.4 cm Ao root area 4.5 cm\S\2 LA dimension 3.6 cm LA/Ao 1.5 LVOT diam 1.9 cm LVOT area 2.8 cm\S\2 LVAd ap4 33.4 cm\S\2 LVLd ap4 7.9 cm EDV(MOD-sp4) 116.0 ml EDV(sp4-el) 119.4 ml LVAs ap4 19.2 cm\S\2 LVLs ap4 6.4 cm ESV(MOD-sp4) 47.8 ml ESV(sp4-el) 49.3 ml EF(MOD-sp4) 58.8 % EF(sp4-el) 58.7 % LVAd ap2 21.2 cm\S\2 LVLd ap2 6.3 cm EDV(MOD-sp2) 59.0 ml EDV(sp2-el) 61.1 ml LVAs ap2 13.8 cm\S\2 LVLs ap2 6.3 cm ESV(MOD-sp2) 24.1 ml ESV(sp2-el) 25.5 ml EF(MOD-sp2) 59.1 % EF(sp2-el) 58.2 % LVLd %diff -26.98 % EDV(MOD-bp) 94.0 ml LVLs %diff -0.56 % ESV(MOD-bp) 34.1 ml EF(MOD-bp) 63.7 % SV(MOD-sp4) 68.2 ml SI(MOD-sp4) 33.9 ml/m\S\2 SV(MOD-sp2) 34.8 ml SI(MOD-sp2) 17.3 ml/m\S\2 SV(MOD-bp) 59.9 ml SI(MOD-bp) 29.8 ml/m\S\2 SV(sp4-el) 70.1 ml SI(sp4-el) 34.9 ml/m\S\2 SV(sp2-el) 35.6 ml SI(sp2-el) 17.7 ml/m\S\2 Doppler Measurements and Calculations MV E max charles 97.5 cm/sec MV A max charles 103.8 cm/sec MV E/A 0.94 MV dec time 0.23 sec Ao V2 max 199.1 cm/sec Ao max PG 15.9 mmHg Ao max PG (full) 10.5 mmHg Ao V2 mean 144.2 cm/sec Ao mean PG 9.3 mmHg Ao mean PG (full) 6.0 mmHg Ao V2 VTI 40.6 cm EMI(I,A) 1.8 cm\S\2 EMI(I,D) 1.8 cm\S\2 EMI(V,A) 1.7 cm\S\2 EMI(V,D) 1.7 cm\S\2 LV V1 max PG 5.4 mmHg LV V1 mean PG 3.2 mmHg LV V1 max 116.2 cm/sec LV V1 mean 85.0 cm/sec LV V1 VTI 25.4 cm SV(Ao) 181.6 ml SI(Ao) 90.4 ml/m\S\2 SV(LVOT) 72.3 ml SI(LVOT) 36.0 ml/m\S\2 TR max charles 252.5 cm/sec
--- NOTE | 2017-02-26 17:37 | Progress Note ---
Internal Med Progress Note Date of Service: Feb 26, 2017. Provider Documentation: SUBJECTIVE: chest pain has improved minimum with exertion no SOB no pain or discomfort in rt hip surgical area OBJECTIVE: Vital Signs-as noted below Exam: General-no sign of distress Eyes-sclera non icteric Lungs-CTA Heart-regular S1/S2 Abdomen-soft, non tender Extremities-healed surgical scar on right hip , trace lower ext edema Neuro-no focal deficit , AAO x3 Lab data as noted below. ASSESSMENT & PLAN: BILATERAL PE: presented with pleuritic chest pain CTA of chest showed segmental /subsegmental PE in right side risk factor for thromboembolism -recent rt hip surgery Doppler rt lower ext negative for DVT prior hx of DVT years back on Lovenox therapeutic dose 1mg/kg Sub Q cont on Coumadin ; INR 1 today Goal INR 2-3 will need overlap tx for at least 2 days after INR being therapeutic will be discharged home with Lovenox bridge therapy need to be followed up at the Coumadin clinic at [facility] - clinic updated ECHO ordered to assess Rt heart strain 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 -given it is second episode / significant clot burden in Lung RECENT RT HIP REPLACEMENT STATUS : had rt hip replacement done approx [address] Jane recovered well post op was at [facility] for 2 weeks discharged home 1 week back has been mobile , ambulatory since discharged home appreciate input form Orthopedic no contraindication for standard anticoagulation for Acute PE out pt follow up with Dr Jane in 2 weeks NAUSEA /VOMITING : resolved tolerating diet well FULL CODE DVT PROPHYLAXIS Lovenox therapeutic dose bridge therapy /Coumadin DISPOSITION Plan to discharge home tomorrow with Coumadin /Lovenox bridge Medicine follow up with Dr Moy at [facility] Coumadin clinic follow up at [facility] Vital Signs: Date Time Temp Pulse Resp B/P (MAP) Pulse Ox O2 Delivery O2 Flow Rate FiO2 02/26/17 16:00 93 Room Air 02/26/17 14:56 36.8 86 18 105/58 (74) 93 02/26/17 08:00 98 Room Air 02/26/17 07:35 36.8 80 20 119/78 (92) 98 02/26/17 00:00 97 Room Air 02/25/17 23:12 36.3 73 18 158/71 (100) 95 Room Air 02/25/17 20:29 36.8 82 18 121/51 (74) 93 Room Air 02/25/17 20:00 Room Air 02/25/17 19:34 36.7 74 18 94 Lab Results: Results Past 24 Hours Test 02/26/17 07:04 Range/Units Hemoglobin 10.0 12.0-16.0 g/dL Hematocrit 32.1 37-47 % Prothrombin Time 10.6 9.0-12.0 SECONDS Prothromb Time International Ratio 1.0 0.9-1.1 Creatinine 0.68 0.60-1.20 mg/dl Est Creatinine Clear Calc Drug Dose 98.1 ml/min Estimated GFR () 110.2 Estimated GFR (Non- 95.1
[2017-02-26] MEDS ORDERED: MRLP17 PO (17:42)
[2017-02-26] MEDS ORDERED: CLC100 PO (17:42)
[2017-02-26] MEDS ORDERED: CMD5 PO (17:42)
[2017-02-26] MEDS ORDERED: LVNIS100 SQ (17:42)
[2017-02-26] MEDS ORDERED: FRRG PO (17:42)
--- NOTE | 2017-02-26 17:43 | Discharge Instructions ---
Discharge Instructions Date of Service Feb 26, 2017. Admission Reason for Admission: Pulmonary Embolism Discharge Discharge Diagnosis / Problem: (1) Pulmonary embolism VTE Date & Time Date of VTE Diagnosis: February 24, 2017 Time of VTE Diagnosis: 21:00 Discharge Goals Goal(s): Decrease discomfort, Diagnostic testing, Therapeutic intervention Activity Recommendations Activity Limitations: resume your previous activity . Instructions / Follow-Up Instructions / Follow-Up HOSPITAL FOLLOW UP ON 03/02/2017 @ 11:[address] Debora Khan, [facility] Medication Instructions: * Warfarin is a medicine prescribed to prevent blood clots * Warfarin will thin your blood and help prevent new clots * Take your medications exactly as directed * Never skip a dose. Never take a double dose. If you miss a dose, take it as soon as you remember * It is important for your doctor to monitor your prothrombin time (PT). This is a lab test * Keep your appointment for lab tests Risk of Adverse Drug Reactions and Interactions: * Warfarin increases your risk of bleeding * The food you eat and other medications you take can affect how Warfarin works in your body * Ask your doctor about daily aspirin therapy * It is very important to talk with your doctor about all of the other medicines , antibiotics, vitamins or herbal products that you are taking * All of your medication must be approved by your doctor, including new medicines, as well as medicines you have taken before you started taking Warfarin Diet: * In order for Warfarin to work properly, it is important to keep your intake of Vitamin K as consistent as possible * You should avoid any sudden change in Vitamin K intake * Report any significant changes in your diet or weight to your doctor Call your Primary Care doctor if you experience any of the following: * Swelling or Pain in your leg * Sudden, continuous pain deep in a muscle * Pain that worsens when you are active or when you stand still for a long time * Chest Pain * Sudden Shortness of Breath * Rapid or pounding heart beat * Fainting * Dizziness * Cough with blood or bloody sputum * Sweating more than normal * Bruises * Heavy or uncontrolled bleeding * Blood in your urine, stool or vomit * Black or tarry stools Caring for Your Self at Home: * Avoid sitting, standing or lying down for long periods without moving your legs and feet * When traveling by car, stop to get out and move around at least once every 3 hours * On long airplane, train or bus rides, get up and move around when possible * If you can't get up, wiggle your toes and tighten your calves to keep your blood moving Follow Up: It is important for you to keep your follow up appointments with your medical provider. HOSPITAL FOLLOW UP ON 03/02/2017 @ 11:[address] Debora Khan, DO [facility]AD[facility] FOLLOW UP AT [facility] , OFFICE WILL CALL WITH APPOINTMENT LAB WORK : COMPLETE BLOOD WORK AND PT/INR ON Thursday03/02/17 Current Hospital Diet Patient's current hospital diet: AHA Diet (Heart Healthy) Discharge Diet Recommended Diet: AHA Diet (Heart Healthy) Pending Studies Studies pending at discharge: yes List of pending studies: LAB WORK: CBC , PT/INR CHECK ON Thursday03/02/17 Medical Emergencies . Who to Call and When: Medical Emergencies: If at any time you feel your situation is an emergency, please call 911 immediately. . Non-Emergent Contact Non-Emergency issues call your: Primary Care Provider . . "Provider Documentation" section prepared by Sahara Peña. . VTE Core Measure Inpt VTE Proph given/why not?: Enoxaparin (Lovenox)SQ, Warfarin (Coumadin) Reason no anticoag overlap I/P: Treatment provided - N/A Reason no anticoag overlap @DC: Treatment provided - N/A
[2017-02-26] MEDS: TRAZODONE HCL 50 MG TAB PO SCH (20:46)
[2017-02-26] MEDS: ATORVASTATIN 20 MG TAB PO SCH (20:47)
[2017-02-27] VITALS: O2SAT 97
[2017-02-27 00:19] VITALS: BP 116/76; PULSE 81; TEMP 36.8; O2SAT 93
[2017-02-27 07:07] VITALS: BP 117/79; PULSE 72; TEMP 36.6; O2SAT 93
[2017-02-27 07:40] LABS: INR 1.4 (0.9-1.1); PROTHROMBIN TIME (PATIENT) 14.7 SECONDS (9.0-12.0)
[2017-02-27] MEDS: TRAMADOL HCL 50 MG TAB PO PRN ×2 (07:49→17:20)
[2017-02-27] MEDS: GABAPENTIN 600 MG TAB PO SCH ×2 (07:50→13:44)
[2017-02-27] MEDS: POLYETHYLENE (MIRALAX) 17 GM PACK PO SCH (07:50)
[2017-02-27] MEDS: DOCUSATE SODIUM 100 MG CAP PO SCH (07:51)
[2017-02-27] MEDS: ENOXAPARIN 100 MG/1ML SYR SQ SCH (07:52)
[2017-02-27] MEDS: METOPROLOL SUCC 25MG EXT REL TAB PO SCH (07:52)
[2017-02-27] MEDS: FERROUS GLUCONATE 324 MG TAB PO SCH ×2 (07:52→16:26)
[2017-02-27 07:58] LABS: CREATININE 0.73 mg/dl (0.60-1.20)
[2017-02-27] MEDS: ACETAMINOPHEN 325 MG TAB PO PRN (09:07)
[2017-02-27] MEDS: METHOCARBAMOL 500 MG TAB PO PRN (09:07)
[2017-02-27] MEDS ORDERED: NURSING VERBAL MED ORDER ONE (11:00)
[2017-02-27] MEDS ORDERED: MoRPHine SULFATE 2 MG/ML CARP IV STA (11:04)
[2017-02-27 13:50] VITALS: BP 117/79; PULSE 72; TEMP 36.6; O2SAT 93
[2017-02-27 15:25] VITALS: O2SAT 95
[2017-02-27] MEDS: WARFARIN SOD 5 MG TAB PO SCH (16:26)
--- NOTE | 2017-02-27 23:16 | Progress Note ---
Internal Med Progress Note Date of Service: Feb 27, 2017. Provider Documentation: SUBJECTIVE: no complain of chest pain or SOB feels fine ready to be discharged home today OBJECTIVE: Vital Signs-as noted below Exam: General-no sign of distress Eyes-sclera non icteric Lungs-CTA Heart-regular S1/S2 Abdomen-soft, non tender Extremities-healed surgical scar on right hip , trace lower ext edema Neuro-no focal deficit , AAO x3 Lab data as noted below. ASSESSMENT & PLAN: BILATERAL PE: presented with pleuritic chest pain CTA of chest showed segmental /subsegmental PE in right side risk factor for thromboembolism -recent rt hip surgery Doppler rt lower ext negative for DVT prior hx of DVT years back on Lovenox therapeutic dose 1mg/kg Sub Q cont on Coumadin ; INR 1.4 today Goal INR 2-3 will need overlap tx for at least 2 days after INR being therapeutic will be discharged home today with Lovenox bridge therapy need to be followed up at the Coumadin clinic at [facility] - clinic updated ECHO The right ventricle is normal size. The right ventricular systolic function is normal. Left ventricular systolic function is normal. Ejection Fraction = 55-60%. The left atrial size is normal. Right atrial size is normal. No significant valvular pathology. 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 -given it is second episode / significant clot burden in Lung RECENT RT HIP REPLACEMENT STATUS : had rt hip replacement done approx [address] Jane recovered well post op was at [facility] for 2 weeks discharged home 1 week back has been mobile , ambulatory since discharged home appreciate input form Orthopedic no contraindication for standard anticoagulation for Acute PE out pt follow up with Dr Jane in 2 weeks FULL CODE DVT PROPHYLAXIS Lovenox therapeutic dose bridge therapy /Coumadin DISPOSITION Plan to discharge home today with Coumadin /Lovenox bridge Medicine follow up with Dr Moy at [facility] Coumadin clinic follow up at [facility] Vital Signs: Date Time Temp Pulse Resp B/P (MAP) Pulse Ox O2 Delivery O2 Flow Rate FiO2 02/27/17 15:25 95 Room Air 02/27/17 13:50 36.6 72 16 93 Room Air 02/27/17 08:00 Room Air 02/27/17 07:07 36.6 72 16 117/79 (92) 93 Room Air 02/27/17 00:19 36.8 81 18 116/76 (89) 93 Room Air 02/27/17 00:00 97 Room Air Lab Results: Results Past 24 Hours Test 02/27/17 06:57 Range/Units Prothrombin Time 14.7 9.0-12.0 SECONDS Prothromb Time International Ratio 1.4 0.9-1.1 Creatinine 0.73 0.60-1.20 mg/dl Est Creatinine Clear Calc Drug Dose 91.4 ml/min Estimated GFR () 103.8 Estimated GFR (Non- 89.5
--- NOTE | 2017-02-27 23:19 | Discharge Summary ---
Discharge Summary Date of Service Feb 27, 2017. Discharge Summary Admission Date: February 24, 2017 at 22:40 Discharge Date: Feb 27, 2017 Discharge Disposition: Home Principal Diagnosis: Pulmonary Embolism Procedures: CT ANGIOGRAM OF CHEST : IMPRESSION: 1. Pulmonary emboli as detailed above, predominantly within the segmental and subsegmental branches of the right middle, right lower, and left lower lobes. 2. There is no airspace consolidation or pleural effusion. Air trapping is suggested in the lower lobes. 3. Mild cardiomegaly. ECHO : The right ventricle is normal size. The right ventricular systolic function is normal. Left ventricular systolic function is normal. Ejection Fraction = 55-60%. The left atrial size is normal. Right atrial size is normal. No significant valvular pathology. Consultations: ORTHOPEDICS -DR JANE Medication Reconciliation New Medications: Docusate Sodium (Docusate Sodium) 100 Mg Cap 100 MG PO DAILY for 30 Days, CAP over the counter take while taking pain medication to prevent constipation Enoxaparin (Enoxaparin Sodium) 100 Mg/Ml Inj 100 MG SQ Q12H for 4 Days, #8 SYR Ferrous Gluconate (Ferrous Gluconate) 324 Mg Tab 324 MG PO BIDM for 30 Days, #60 TAB 2 Refills Polyethylene (Miralax) 17 Gm Pow 17 GM PO DAILY for 30 Days over the counter take while taking pain medications to prevent constipation Warfarin Sod (Coumadin) 5 Mg Tab 5 MG PO DAILY@16 for 30 Days, #60 TAB 3 Refills Continued Medications: Acetaminophen (Tylenol) 500 Mg Tab 1000 MG PO Q8 PRN for Pain, TAB Amitriptyline HCl (Amitriptyline HCl) 25 Mg Tab 25 MG PO HS PRN for Sleep Atorvastatin (Atorvastatin Calcium) 20 Mg Tab 20 MG PO HS Gabapentin (Gabapentin) 600 Mg Tab 600 MG PO TID Hydromorphone Hcl (Hydromorphone Hcl) 2 Mg Tab 2 MG PO Q4H PRN for Pain Methocarbamol (Methocarbamol) 500 Mg Tab 500 MG PO Q8 PRN for Muscle Relaxer Metoprolol Succinate (Metoprolol Succinate ER) 25 Mg Tabcr 25 MG PO QAM Tramadol HCl (Tramadol HCl) 50 Mg Tab 50 MG PO Q8 PRN for Pain Trazodone Hcl (Trazodone) 50 Mg Tab 50 MG PO HS Discontinued Medications: Aspirin (Aspirin Ec) 325 Mg Tab 325 MG PO BID Referrals At Discharge Follow up Referrals: Physician Referral - 03/02/17 with Debora Khan D.O. Admission Information HPI (per Admitting provider): DATE OF ADMISSION: 02/24/2017 PRIMARY CARE DOCTOR: Dr. Khan CHIEF COMPLAINT: Shortness of breath and chest pain. HISTORY OF PRESENT ILLNESS: History was obtained from patient and records. Medical history is significant for pulmonary embolism status post anticoag, hypertension, asthma, arthritis, past tobacco abuse, chronic anemia (baseline hemoglobin of 11 since 2013). Last month, the patient underwent elective right total hip replacement for severe osteoarthritis. Postop the patient was discharged on aspirin 325 mg twice a day for the next 45 days. Patient is compliant with medication. About 2 days ago, the patient noted upper back pain, sharp, going to her mid chest with some shortness of breath, pleuritic. Patient is also complaining of nasal congestion, frontal headache symptoms and dry cough. Patient also noted achy right leg swelling and pain. At the Emergency Room CAT scan showed bilateral pulmonary emboli. Px started on IV Heparin. MEDICAL HISTORY: As above. History of pulmonary embolism related to trauma sp coumadin as per px () SURGERIES: Hip replacement, hysterectomy, neck surgery, carpal tunnel surgery, tonsillectomy and adenectomy. HOME MEDICATIONS: Include; aspirin, Tylenol, amitriptyline, atorvastatin, gabapentin, hydromorphone, methocarbamol, metoprolol, tramadol and trazodone. ALLERGIES: TO CODEINE, OXYCODONE AND PROPOXYPHENE. FAMILY HISTORY: Blood clots. PERSONAL AND SOCIAL HISTORY: Past tobacco abuse. 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 Physical Exam (per Admitting): REVIEW OF SYSTEMS: As per HPI, all other ROS negative. PHYSICAL EXAMINATION: VITAL SIGNS: Blood pressure was noted to be 151/90, pulse rate 86, RR 18, temperature 36.7 and sats 95 on room air. GENERAL: Noted to be obese, slightly uncomfortable, in no respiratory distress. SKIN: Pallor. HEENT: Pale palpebral conjunctivae. Dry mucosa. NECK: Short neck. LUNGS: Decreased breath sounds. HEART: Regular rate and rhythm. ABDOMEN: Soft. EXTREMITIES: Minimal swelling, right leg, no tenderness NEUROLOGIC: No gross focality. Hospital Course BILATERAL PE: presented with pleuritic chest pain CTA of chest showed segmental /subsegmental PE in right side risk factor for thromboembolism -recent rt hip surgery Doppler rt lower ext negative for DVT prior hx of DVT years back on Lovenox therapeutic dose 1mg/kg Sub Q cont on Coumadin ; INR 1.4 today Goal INR 2-3 will need overlap tx for at least 2 days after INR being therapeutic will be discharged home today with Lovenox bridge therapy need to be followed up at the Coumadin clinic at [facility] - clinic updated ECHO The right ventricle is normal size. The right ventricular systolic function is normal. Left ventricular systolic function is normal. Ejection Fraction = 55-60%. The left atrial size is normal. Right atrial size is normal. No significant valvular pathology. pt may need assisted /life long anticoagulation -given it is second episode / significant clot burden in Lung RECENT RT HIP REPLACEMENT STATUS : had rt hip replacement done approx [address] Jane recovered well post op was at [facility] for 2 weeks discharged home 1 week back has been mobile , ambulatory since discharged home appreciate input form Orthopedic no contraindication for standard anticoagulation for Acute PE out pt follow up with Dr Jane in 2 weeks FULL CODE DVT PROPHYLAXIS Lovenox therapeutic dose bridge therapy /Coumadin DISPOSITION Plan to discharge home today with Coumadin /Lovenox bridge Medicine follow up with Dr Moy at [facility] Coumadin clinic follow up at [facility] Total time spent on discharge = 35mins This includes examination of the patient, discharge planning, medication reconciliation, and communication with other providers. Discharge Instructions DI: VTE Warfarin v4 Discharge Instructions Date of Service Feb 26, 2017. Admission Reason for Admission: Pulmonary Embolism Discharge Discharge Diagnosis / Problem: (1) Pulmonary embolism VTE Date & Time Date of VTE Diagnosis: February 24, 2017 Time of VTE Diagnosis: 21:00 Discharge Goals Goal(s): Decrease discomfort, Diagnostic testing, Therapeutic intervention Activity Recommendations Activity Limitations: resume your previous activity . Instructions / Follow-Up Instructions / Follow-Up HOSPITAL FOLLOW UP ON 03/02/2017 @ 11:[address] Debora Khan, DO [facility] Medication Instructions: * Warfarin is a medicine prescribed to prevent blood clots * Warfarin will thin your blood and help prevent new clots * Take your medications exactly as directed * Never skip a dose. Never take a double dose. If you miss a dose, take it as soon as you remember * It is important for your doctor to monitor your prothrombin time (PT). This is a lab test * Keep your appointment for lab tests Risk of Adverse Drug Reactions and Interactions: * Warfarin increases your risk of bleeding * The food you eat and other medications you take can affect how Warfarin works in your body * Ask your doctor about daily aspirin therapy * It is very important to talk with your doctor about all of the other medicines , antibiotics, vitamins or herbal products that you are taking * All of your medication must be approved by your doctor, including new medicines, as well as medicines you have taken before you started taking Warfarin Diet: * In order for Warfarin to work properly, it is important to keep your intake of Vitamin K as consistent as possible * You should avoid any sudden change in Vitamin K intake * Report any significant changes in your diet or weight to your doctor Call your Primary Care doctor if you experience any of the following: * Swelling or Pain in your leg * Sudden, continuous pain deep in a muscle * Pain that worsens when you are active or when you stand still for a long time * Chest Pain * Sudden Shortness of Breath * Rapid or pounding heart beat * Fainting * Dizziness * Cough with blood or bloody sputum * Sweating more than normal * Bruises * Heavy or uncontrolled bleeding * Blood in your urine, stool or vomit * Black or tarry stools Caring for Your Self at Home: * Avoid sitting, standing or lying down for long periods without moving your legs and feet * When traveling by car, stop to get out and move around at least once every 3 hours * On long airplane, train or bus rides, get up and move around when possible * If you can't get up, wiggle your toes and tighten your calves to keep your blood moving Follow Up: It is important for you to keep your follow up appointments with your medical provider. HOSPITAL FOLLOW UP ON 03/02/2017 @ 11:[address] Debora Khan, [facility] COUMADIN CLINIC FOLLOW UP AT [facility] , OFFICE WILL CALL WITH APPOINTMENT LAB WORK : COMPLETE BLOOD WORK AND PT/INR ON Thursday03/02/17 Current Hospital Diet Patient's current hospital diet: AHA Diet (Heart Healthy) Discharge Diet Recommended Diet: AHA Diet (Heart Healthy) Pending Studies Studies pending at discharge: yes List of pending studies: LAB WORK: CBC , PT/INR CHECK ON Thursday03/02/17 Medical Emergencies . Who to Call and When: Medical Emergencies: If at any time you feel your situation is an emergency, please call 911 immediately. . Non-Emergent Contact Non-Emergency issues call your: Primary Care Provider . . "Provider Documentation" section prepared by Sahara Peña. . VTE Core Measure Inpt VTE Proph given/why not?: Enoxaparin (Lovenox)SQ, Warfarin (Coumadin) Reason no anticoag overlap I/P: Treatment provided - N/A Reason no anticoag overlap @DC: Treatment provided - N/A Additional Copies To Debora Khan D.O., James S., M.D.
[2017-07-06] MEDS ORDERED: ACET-1256 PO (08:40)
[2017-07-06] MEDS ORDERED: TPRSR/25 PO (12:26)
[2017-07-06] MEDS ORDERED: AMT25 PO (12:26)
[2017-07-06] MEDS ORDERED: NRN600 PO (12:26)
== END 2017-02-27 18:00 | disposition home or self-care (01) | DRG 176 ==
LOC: ENRESERVDT → ENRESERVTM → C.EDB 20:33 → C.2E 22:40 → C.MS4W 02-25 21:25
PROVIDERS: ADMIT Hospitalist; ATTEND Hospitalist
DX: I26.99 Other pulmonary embolism without acute cor pulmonale (principal); Z68.41 Body mass index [BMI] 40.0-44.9, adult; I10 Essential (primary) hypertension; J45.909 Unspecified asthma, uncomplicated; M19.90 Unspecified osteoarthritis, unspecified site; E66.9 Obesity, unspecified; D64.9 Anemia, unspecified; Z79.82 Long term (current) use of aspirin; Z79.899 Other long term (current) drug therapy; Z87.891 Personal history of nicotine dependence; Z88.5 Allergy status to narcotic agent; Z88.8 Allergy status to other drugs, medicaments and biological substances; Z96.651 Presence of right artificial knee joint

== ENCOUNTER 2017-07-06 16:49 | Emergency (ER) | payer BC ==
[~2017-07-06] VITALS: Ht 154.9 cm; Wt 107.1 kg
[~2017-07-06 16:49] MED LIST changes: -ACET-1138 PO; +ACET-1256 PO; +AMT25 PO; -ASPEC325 PO; -ATOR-22 PO; -CITA40TA4 PO; +CLC100 PO; +CMD5 PO; +HYDR2TAB2 PO; -HYDR2TAB3 PO; +LVNIS100 SQ; -METH500T37 PO; +MRLP17 PO; +NRN600 PO; +TPRSR/25 PO; -TRAM-10 PO; +ULT50 PO
[2017-07-06 16:58] VITALS: TEMP 36.5; Ht 154.9 cm; Wt 107.1 kg
--- NOTE | 2017-07-06 17:53 | DIAGNOSTIC IMAGING REPORT ---
L HIP UNILATERAL 2 VIEWS, L FEMUR 2 VIEWS ROUTINE CLINICAL HISTORY: L hip and thigh pain COMPARISON STUDY: None. FINDINGS: There is a left total hip arthroplasty. The hardware is intact. No abnormal periprosthetic lucency. No acute fracture or dislocation within the left hip or left femur. The visualized pelvic bones are intact. Soft tissues are unremarkable. IMPRESSION: No acute fracture or dislocation within the left hip or left femur. Electronically signed by: Donald Landaverde M.D. 07/06/2017 5:52 PM Dictated Date/Time: 07/06/2017 5:49 PM
[2017-07-06] MEDS ORDERED: CMD5 PO (18:06)
--- NOTE | 2017-07-06 18:39 | EMERGENCY ROOM VISIT NOTE ---
ED Visit Note First contact with patient: 17:09 62-year-old female with pain in her back and legs. The patient was seen by her family physician and sent here for further evaluation. The patient was fully evaluated by Adrien Wolf PA-C. Please see his note. I also independently evaluated the patient.
[2017-07-06 18:55] VITALS: BP 141/65
--- NOTE | 2017-07-06 19:27 | DIAGNOSTIC IMAGING REPORT ---
LEFT LOWER EXTREMITY VENOUS DOPPLER HISTORY: L thigh pain COMPARISON STUDY: None. FINDINGS: There is normal compressibility, flow, and augmentation within the left lower extremity deep venous system. IMPRESSION: No DVT within the left lower extremity. Electronically signed by: Donald Landaverde M.D. 07/06/2017 7:26 PM Dictated Date/Time: 07/06/2017 7:26 PM
[2017-07-06] MEDS ORDERED: ACETAMINOPHEN 500 MG TAB PO STA (20:45)
[2017-07-06 20:54] VITALS: PULSE 73; O2SAT 96
[2017-07-06] MEDS ORDERED: TRAZ50TA35 PO (22:09)
[2017-07-06] MEDS ORDERED: LPT/20 PO (22:09)
[2017-07-06] MEDS ORDERED: RBX500 PO (22:11)
--- NOTE | 2017-07-07 01:24 | EMERGENCY ROOM VISIT NOTE ---
ED Visit Note First contact with patient: 17:09 Chief Complaint: My left hip and knee hurts. History of Present Illness: Ms. Najera is a 62-year-old white female who ambulates into the ED accompanied by a female friend complaining of left hip and thigh pain. Patient was referred to the ED by her PCP for venous Doppler ultrasound. Patient reports last , 5 days ago, she was walking in her house and struck her right thigh on a piece of furniture. She reports initially there was some mild pain but since that time her pain has dramatically increased. Currently patient is complaining of over the lateral aspect of the left thigh and left hip. She describes her pain as a sharp sensation. She rates her discomfort 7/10. Intermittently the pain does radiate superiorly and into the lumbar back. Her pain worsens with moving from the sitting to the standing and the standing to sitting movements. She has not identified any alleviating factors related to the pain. She has not taken any medications for pain prior to arrival at the hospital. She denies any associated symptoms including fevers , chills, leg weakness/numbness/tingling. Review of Systems: As noted above in history of present illness. Past Medical History: Hypertension, unspecified bleeding, status post right hip arthroplasty. Current Medications: Metoprolol, amitriptyline, gabapentin, acetaminophen, trazodone, Coumadin, atorvastatin, methocarbamol. Allergies to Medications: Codeine, oxycodone, propoxyphene. Social History: Patient is currently employed; she feels safe in her home environment; she denies tobacco and alcohol use. Physical Examination: Vital Signs: Date Time Temp Pulse Resp B/P (MAP) Pulse Ox O2 Delivery O2 Flow Rate FiO2 07/06/17 20:54 73 18 96 Room Air 07/06/17 18:55 67 141/65 94 Room Air 07/06/17 16:58 36.5 76 20 187/88 94 Room Air GENERAL: 62-year-old female in mild to moderate distress due to pain, nontoxic- appearing, afebrile and hemodynamically stable. NEUROLOGICAL: Awake, alert and oriented to person, place and time. Answering questions appropriately and following commands. Normal gait. Good hand eye coordination. SKIN: Warm, dry and pink. LEFT LOWER EXTREMITY: No gross bony deformities. No shortening or malrotation. Moderate tenderness over the greater trochanter area and over the proximal lateral aspect of the femur. I do not appreciate any bony deformity or crepitus. I do note a quarter-sized contusion just superior and lateral to the patella. Negative patellar apprehension test. Negative bounce test. No laxity of the collateral or cruciate ligaments. No tenderness over the joint line. No posterior tenderness. Full range of motion in flexion and extension of the knee and plantar flexion and dorsiflexion of the ankle. Throughout the foot the skin was warm and pink and capillary refill is brisk. She is able to distinguish light sensations through all dermatomes. ED Course: Patient is assessed as noted above. Patient's medication list was reviewed. Patient was given 1 g of acetaminophen by mouth for pain. Left Hip X-Rays: Were read by myself and the radiologist and shows no acute fractures or dislocations. Left Femur X-Ray: Were read by myself and shows no acute fractures. Left Lower Leg Venous Doppler Ultrasound: Was reviewed by myself and read by the radiologist showing no DVTs. Patient was reassessed multiple times during her stay in the emergency department. Patient's case was reviewed with Dr. Barcenas; in apparently assessed the patient we agreed on diagnostic approach, treatment, disposition and plan. Patient was educated about today's findings and instructed on her treatment plan ; she verbalized understanding and agreement with this plan. Clinical Impression: Left hip and thigh pain. Decision-Making: Initially my differential diagnosis I considered contusion, bleeding because of her Coumadin use, hip fracture, femur fracture, hip dislocation, and other causes. Disposition: Patient discharged home in stable condition accompanied by female friends; her to departure she was reassessed and subjectively reported she was feeling the same and rated her discomfort 8/10. Plan: A she was encouraged to continue her current medications as prescribed. Because of her medication list patient is encouraged to use 650 mg of acetaminophen every 6 hours as needed for pain. Patient was encouraged to use her walker. Patient was encouraged to follow-up with family physician. Patient is encouraged return ED for worsening/uncontrolled pain, leg weakness/ numbness/tingling or any new/concerning symptoms.
== END 2017-07-06 20:57 | disposition home or self-care (01) ==
LOC: C.EDB 16:49 → C.EDD 20:57
DX: M25.552 Pain in left hip (principal); M79.652 Pain in left thigh; I10 Essential (primary) hypertension; Z96.641 Presence of right artificial hip joint; Z79.01 Long term (current) use of anticoagulants; S70.12XA Contusion of left thigh, initial encounter; W22.03XA Walked into furniture, initial encounter; Y92.009 Unspecified place in unspecified non-institutional (private) residence as the place of occurrence of the external cause

== ENCOUNTER 2022-10-01 06:47 | Inpatient (IN) ==
[2022-10-01] MEDS ORDERED: ALBUT/IPRATROP 3MG/0.5MG NEB 3 ML VIAL NEB ONE (07:22)
--- NOTE | 2022-10-01 07:26 | Emergency Department Note ---
Impression & Plan Acute asthma exacerbation, Influenza A, Pneumonia ED Provider Note NAME: RADHA REYES AGE: 67 SEX: F : 1955 ARRIVES VIA: Walk-In INFORMANT: Patient ED PROVIDER(S): Compa Melvin DO CHIEF COMPLAINT: shortness of breath HPI: Patient is a 67-year-old female with a past medical history anxiety, chronic diarrhea, asthma, neuropathy and hypertension who presents to the ER for shortness of breath. She notes that she has been having upper respiratory symptoms which have been present since . They have been waxing and waning. This started back up just around [place]. She admits to a productive cough with yellow phlegm as well as shortness of breath with any movement. She has a runny nose and a sore throat. She has chest pain only with coughing. No belly pain, nausea, vomiting, or diarrhea. No dysuria, urgency, or frequency. PAST MEDICAL HISTORY:See Below PAST SURGICAL HISTORY:See Below FAMILY HISTORY:See Below SOCIAL HISTORY:See Below HOME MEDICATIONS:See Below ALLERGIES:See Below VITALS:See Below PHYSICAL EXAMINATION: GENERAL: Sitting up in bed, alert, intermittent cough, disheveled, significantly short of breath with exertion EYE EXAM: normal conjunctiva. OROPHARYNX: no exudate, no erythema, lips, buccal mucosa, and tongue normal and mucous membranes are moist NECK: supple, no nuchal rigidity, no adenopathy, non-tender LUNGS: Diffuse wheezing. Normal chest wall mechanics HEART: no murmurs, S1 normal and S2 normal ABDOMEN: abdomen soft, non-tender, normo-active bowel sounds, no masses, no rebound or guarding. UPPER EXTREMITIES: upper extremities are grossly normal. LOWER EXTREMITIES: No pitting edema. NEURO EXAM: Normal sensorium, cranial nerves II-XII grossly intact, normal speech, no gross weakness of arms, no gross weakness of legs. MEDICAL DECISION MAKING: Patient is a 67-year-old female with a past medical history of asthma and hypertension who presents ER for the above-stated complaint. EMS run sheet was reviewed. External records reviewed. IV was established blood work was obtained. Labs show mild leukocytosis likely secondary to the influenza. Mild anemia 11.6. BMP with no acidosis. No hyperkalemia. No transaminitis. Troponin was negative none take of ACS. Influenza A was positive. Chest x-ray with a questionable infiltrate. Patient was given IV Rocephin and azithromycin. Updated bedside. She was significantly dyspneic with any kind of movement. Was given steroids as well as neb treatments which did help improve her respiratory rate. She was updated at bedside. Discussed with family/sister at bedside as well following initial presentation and at the completion of the work-up. Discussed with care managers and the hospitalist service for admission and further work-up of her asthma exacerbation and influenza with questionable pneumonia. Triage Nursing notes reviewed. Limited review of prior medical records performed Vital Signs: reviewed and remarkable for no significant abnormalities Differential diagnosis: Differential diagnoses includes but is not limited to pneumonia, bronchitis, COPD/Asthma exacerbation, pneumothorax, pulmonary embolism, congestive heart failure, acute coronary syndrome ER treatment provided: See below Diagnostics interpreted by me include EKG and cardiac monitoring as listed below: -Cardiac Monitoring: An order was placed for continuous cardiac monitoring. The monitor shows a rate of 80 with sinus rhythm. -ECG: Sinus rhythm rate 74 Normal axis No PVCs QTC 399 -Laboratory studies: Interpreted by me as stated above in MDM and shown below. Imaging studies: Xrays: As interpreted by me: Showing infiltrate in the right lower lobe Consultation(s): Discussed with [facility] hospitalist Dr. Gibson for further evaluation admission in regards to the presentation work-up and treatment Procedures:none Critical Care: None Past Med/Surg History Medical History Hearing deficit Hyperlipidemia Hypertension Morbid obesity with BMI of 45.0-49.9, adult Osteoarthritis Pulmonary embolism pt states was over 20+ years ago "due to pneumonia"--was on coumadin for awhile, but then taken off, no issues since Snoring had sleep study test done--never heard results, no device Surgical History History of carpal tunnel release of both wrists History of section History of fusion of cervical spine normal ROM History of tonsillectomy History of tooth extraction History of total hysterectomy with bilateral salpingo-oophorectomy (BSO) History of total left hip replacement History of total right hip replacement Family History Father Hypertension Mother Breast cancer Hypertension Other No family history of adverse response to anesthesia Social History Smoking Status: Former smoker Second Hand Exposure: No; Hx Alcohol Use: Yes Hx Substance Use: No Preferred Language: Azeri Communication Ability: Effective No Bake Molder Required: No Beliefs That Will Affect Care: None Current Living Situation: Family Current Living Situation Comment: Lives with sister Feels Safe at Home: Yes Assistive Devices: None Allergies Allergies Allergy/AdvReac Type Severity Reaction Status Date / Time codeine AdvReac Mild GI UPSET Verified 05/09/22 08:43 oxycodone AdvReac Mild N/V per Verified 05/09/22 08:43 records propoxyphene AdvReac Mild GI UPSET Verified 05/09/22 08:43 Home Meds Home Medications Medication Instructions Recorded Confirmed amitriptyline 25 mg tablet 25 mg PO HS PRN Sleep 04/30/22 10/01/22 atorvastatin 20 mg tablet 20 mg PO HS 04/30/22 10/01/22 gabapentin 600 mg tablet 600 mg PO BID 04/30/22 10/01/22 metoprolol succinate 25 mg 25 mg PO QAM 04/30/22 10/01/22 tablet,extended release 24 hr baclofen 10 mg tablet 10 mg PO TID PRN Spasms 10/01/22 10/01/22 citalopram 20 mg tablet 20 mg PO DAILY 10/01/22 10/01/22 lisinopril 10 mg PO DAILY 10/01/22 10/01/22 Results & Data (ED) Vital Signs Vital Signs - 24 hr 10/01/22 06:56 10/01/22 09:06 10/01/22 09:30 Temperature 36.5 C Temperature Source Oral Pulse Rate 81 77 Pulse Rate [Right Finger] 102 H Pulse Rate from SpO2 Sensor 78 Pulse Rhythm Regular Pulse Strength Normal Respiratory Rate 22 18 17 Respiratory Effort / Characteristics Non-Labored Spontaneous Non-Labored Spontaneous Respiratory Depth Normal Respiratory Pattern Regular Blood Pressure 148/95 H 136/93 Blood Pressure Mean 112 107 Blood Pressure Position Sitting Pulse Oximetry 94 96 100 Oxygen Delivery Method Room Air Room Air Nebulizer Sepsis Recent Fever Within 48 Hours No Sepsis New/Unexplained Change in Mental Status N/A Sepsis Action Taken by Nursing No Action Required Laboratory Data 10/01/22 07:40 10/01/22 07:40 Lab Results 10/01/22 10/01/22 10/01/22 Range/Units 07:01 07:40 07:40 WBC 11.17 H (4.8-10.8) K/ul RBC 3.82 L (3.93-5.22) M/uL Hgb 11.6 L (12.0-16.0) g/dl Hct 35.0 (34.1-44.9) % MCV 91.6 (80.0-100.0) fL MCH 30.4 (25.0-34.0) pg MCHC 33.1 (32.0-36.0) g/dL RDW Std Deviation 43.9 (36.4-46.3) fL RDW Coeff of Alex 13.2 (11.5-14.5) % Plt Count 386 (130-400) K/uL MPV 9.7 (9.4-12.3) fL Immature Gran % (Auto) 1.0 % Neut % (Auto) 64.2 % Lymph % (Auto) 22.5 % Beckham % (Auto) 11.7 % Eos % (Auto) 0.4 % Baso % (Auto) 0.2 % Neut # (Auto) 7.18 H (1.4-6.5) K/uL Lymph # (Auto) 2.51 (1.2-3.4) K/uL Beckham # (Auto) 1.31 H (0.24-0.82) K/uL Eos # (Auto) 0.04 (0-0.50) K/uL Baso # (Auto) 0.02 (0-0.2) K/uL Immature Gran # (Auto) 0.11 H (0.00-0.02) K/uL Sodium 133 L (136-145) mmol/L Potassium 3.9 (3.5-5.1) mmol/L Chloride 101 (98-107) mmol/L Carbon Dioxide 25 (21-32) mmol/L Anion Gap 7 (3-11) BUN 11 (6-23) mg/dl Creatinine 0.64 (0.6-1.2) mg/dl Est Cr Clr Drug Dosing 100.8 ml/min Est GFR ( Amer) 108.5 ml/min Est GFR (Non-Af Amer) 93.6 ml/min BUN/Creatinine Ratio 17.2 (10-20) Glucose 88 (70-99(Fasting)) mg/dl Calcium 8.5 (8.5-10.1) mg/dl Total Bilirubin 0.4 (0.2-1.0) mg/dl AST 27 (13-39) U/L ALT 45 (7-52) U/L Alkaline Phosphatase 66 (34-104) U/L Total Protein 7.5 (6.0-8.3) gm/dl Albumin 3.9 (3.4-5.0) gm/dl Globulin 3.6 (2.5-4.0) gm/dl Albumin/Globulin Ratio 1.1 (0.9-2) SARS-CoV-2 (PCR) NEGATIVE (Negative) Influenza Type A (PCR) Positive A* (Neg) Influenza Type B (PCR) Negative (Neg) RSV (RT-PCR) Negative (Neg) Administered Medications Acetaminophen (Acetaminophen 325 Mg Tab) 650 mg PO Q4H PRN PRN Reason: pain/fever Stop: 10/31/22 12:07 Last Admin: 10/01/22 12:42 Dose: 650 mg Documented By: BINDU Albuterol (Albut/Ipratrop 3mg/0.5mg Neb 3 Ml Vial) 3 ml NEB QIDR FARAZ; Protocol Stop: 10/31/22 12:07 Last Admin: 10/01/22 12:46 Dose: 3 ml Documented By: IRMA Oseltamivir Phosphate (Oseltamivir Phosphate 75 Mg Cap) 75 mg PO BID FARAZ; Protocol Stop: 10/06/22 12:29 Last Admin: 10/01/22 12:42 Dose: 75 mg Documented By: BINDU Discontinued Medications Albuterol (Albut/Ipratrop 3mg/0.5mg Neb 3 Ml Vial) 12 ml NEB ONE ONE; Protocol Stop: 10/01/22 07:23 Last Admin: 10/01/22 09:05 Dose: 12 ml Documented By: EVANGELISTA Doxycycline Hyclate (Doxycycline Hyclate 100 Mg Cap) 100 mg PO ONE ONE Stop: 10/01/22 12:17 Last Admin: 10/01/22 12:42 Dose: 100 mg Documented By: BINDU Ceftriaxone Sodium (Rocephin) 2,000 mg in 70 mls @ 140 mls/hr IV NOW STA Stop: 10/01/22 10:18 Last Infusion: 10/01/22 12:13 Dose: 0 mls/hr Documented By: Admin: 10/01/22 11:22 Dose: 140 mls/hr Documented By: BINDU Azithromycin 500 mg/ Dextrose 255 mls @ 127.5 mls/hr IV NOW STA Stop: 10/01/22 11:48 Last Admin: 10/01/22 12:21 Dose: Not Given Documented By: BINDU Methylprednisolone (Methylprednisolone 40 Mg/Ml Vial) 40 mg IV NOW STA Stop: 10/01/22 07:27 Last Admin: 10/01/22 07:40 Dose: 40 mg Documented By: LUAN Imaging Data Radiologist's Impression: Chest X-Ray 10/01/22 07:00 XR chest 2V PA/lateral HISTORY: 67 years-old Female chest congestion acute cough with congestion COMPARISON: Chest radiograph and CTA chest study is 02/24/2017 TECHNIQUE: PA and lateral views of the chest FINDINGS: Cardiomediastinal and hilar silhouettes are within normal limits. No p neumothorax, pleural effusion or overt pulmonary edema. Ill-defined right basilar predominant opacities are seen best on the PA view. Degenerative changes of the shoulders and spine. IMPRESSION: 1. Mild ill-defined right basilar opacities on the PA view without correlate on the lateral projection are likely secondary to summation density. Subtle airspace disease considered less likely. 2. Cardiomegaly. ACT 112: Negative or not required by law. The above report was generated using voice recognition software. It may contain grammatical, syntax or spelling errors. Electronically signed by: Rolf Mayer M.D. 10/01/2022 7:43 AM Discharge Plan Visit Data Chief Complaint: Flu Like Symptoms Stated Complaint: PNEUMONIA, RIBS,SOB,COUGH ED Provider: Compa Melvin Discharge Problem: Acute asthma exacerbation, Influenza A, Pneumonia Discharge Instructions Interventions: ED Discharge Assessment Last Done: 10/01/22 12:09
--- NOTE | 2022-10-01 07:44 | XRay Report ---
XR chest 2V PA/lateral HISTORY: 67 years-old Female chest congestion acute cough with congestion COMPARISON: Chest radiograph and CTA chest study is 02/24/2017 TECHNIQUE: PA and lateral views of the chest FINDINGS: Cardiomediastinal and hilar silhouettes are within normal limits. No pneumothorax, pleural effusion o r overt pulmonary edema. Ill-defined right basilar predominant opacities are seen best on the PA view . Degenerative changes of the shoulders and spine. IMPRESSION: 1. Mild ill-defined right basilar opacities on the PA view without correlate on the lateral projectio n are likely secondary to summation density. Subtle airspace disease considered less likely. 2. Cardiomegaly. ACT 112: Negative or not required by law. The above report was generated using voice recognition software. It may contain grammatical, syntax o r spelling errors. Electronically signed by: Rolf Mayer M.D. 10/01/2022 7:43 AM
[2022-10-01 08:02] LABS: Basophils # (auto) 0.02 K/uL (0-0.2); Basophils % (auto) 0.2 %; Eosinophils # (auto) 0.04 K/uL (0-0.50); Eosinophils % (auto) 0.4 %; Hemoglobin 11.6 g/dl (12.0-16.0); Immature Granulocytes # (auto) 0.11 K/uL (0.00-0.02); Lymphocytes # (auto) 2.51 K/uL (1.2-3.4); Lymphocytes % (auto) 22.5 %; Mean Corpuscular Hemoglobin 30.4 pg (25.0-34.0); Mean Corpuscular Hgb Conc 33.1 g/dL (32.0-36.0); Mean Corpuscular Volume 91.6 fL (80.0-100.0); Mean Platelet Volume 9.7 fL (9.4-12.3); Monocytes # (auto) 1.31 K/uL (0.24-0.82); Monocytes % (auto) 11.7 %; Neutrophils # (auto) 7.18 K/uL (1.4-6.5); Neutrophils % (auto) 64.2 %; Platelet Count 386 K/uL (130-400); RDW Coefficient of Variation 13.2 % (11.5-14.5); RDW Standard Deviation 43.9 fL (36.4-46.3); Red Blood Count 3.82 M/uL (3.93-5.22); White Blood Count 11.17 K/ul (4.8-10.8)
[2022-10-01 08:11] LABS: Influenza B virus by PCR Negative (Neg); RSV by PCR Negative (Neg); SARS CoV2 RNA(COVID-19) Ceph NEGATIVE (Negative)
[2022-10-01 08:26] LABS: Albumin Globulin Ratio 1.1 (0.9-2); Albumin Level 3.9 gm/dl (3.4-5.0); BUN Creatinine Ratio 17.2 (10-20); Bilirubin,Total 0.4 mg/dl (0.2-1.0); Calcium 8.5 mg/dl (8.5-10.1); Creatinine Clr Calc Pharmacy 100.8 ml/min; Est GFR (African American) 108.5 ml/min; Est GFR (Non-African American) 93.6 ml/min; Globulin 3.6 gm/dl (2.5-4.0); Potassium 3.9 mmol/L (3.5-5.1); Total Protein 7.5 gm/dl (6.0-8.3)
[2022-10-01 08:50] LABS: Influenza A virus by PCR Positive (Neg)
[2022-10-01] MEDS ORDERED: cefTRIAXone SODIUM 2,000 MG/70 ML BAG IV STA (09:49)
[2022-10-01] MEDS ORDERED: AZITHROMYCIN 500 MG in DEXTROSE 5% 250 ML IV STA (09:49)
--- NOTE | 2022-10-01 10:25 | History & Physical Report ---
Date of Service October 01, 2022 Assessment & Plan (1) Influenza A: Plan: Influenza A Acute bronchitis H/O DIPAK ? Underlying COPD -CXR:Mild ill-defined right basilar opacities on the PA view without correlate on the lateral projection are likely secondary to summation density. Subtle airspace disease considered less likely. Cardiomegaly. -Negative for COVID, RSV screen Check procalcitonin Blood Cultures pending Started on Tamiflu Empirically also started on Rocephin, doxycycline Pulmonary hygiene IV Solu-medrol, bronchodilators: Titrate as able Oxygen support per protocol Given ongoing prolonged dyspnea, orthopnea will check resting echo May benefit from outpatient PFTs Saturating well on room air Dizziness Ambulatory dysfunction Likely secondary to generalized weakness from above PT OT Fall precaution Depression Anxiety disorder Continue home medications Hypertension Continue lisinopril, metoprolol Hyperlipidemia On statin DIPAK CPAP HS Morbid obesity BMI 46 DVT Px: Lovenox SQ Code Status Full Code History of Present Illness Chief Complaint: Cough, Dyspnea Primary Care Provider: Debora Khan DO Patient is a 67-year-old female with history of morbid obesity, major depression, anxiety disorder, hypertension Hyperlipidemia, Obstructive Sleep Apnea, Lumbar Spinal Stenosis and Other Medical Problems Presents with History of worsening shortness of breath, cough, chills, orthopnea and nausea. Patient states that she has been having flulike symptoms since Thanksgiving intermittently but over the past 2 weeks have gradually worsened. Reports cough with yellowish expectoration but denies any hemoptysis, fever. Reports having shortness of breath which is gradually worsening over the past 2 weeks associated with orthopnea and worsens with exertion. She has been nauseous since yesterday but no vomiting or diarrhea, abdominal pain. Also reports some chest discomfort of her right rib cage secondary to coughing which worsens with deep breathing. She noticed that she has been wheezing lately. She has poor appetite and has been having dizziness intermittently which she attributes to unsteady gait. She denies any falls, head trauma, loss of consciousness. Denies any history of pedal edema, change in vision, weight loss, dysuria, hematuria. She was treated at [facility] 3 days ago and was prescribed Augmentin, albuterol inhaler and Medrol Dosepak which did not improve her symptoms. Allergies Allergy/AdvReac Type Severity Reaction Status Date / Time codeine AdvReac Mild GI UPSET Verified 05/09/22 08:43 oxycodone AdvReac Mild N/V per Verified 05/09/22 08:43 records propoxyphene AdvReac Mild GI UPSET Verified 05/09/22 08:43 Home Medications Medication Instructions Recorded Confirmed Type amitriptyline 25 mg tablet 25 mg PO HS PRN Sleep 04/30/22 10/01/22 History atorvastatin 20 mg tablet 20 mg PO HS 04/30/22 10/01/22 History gabapentin 600 mg tablet 600 mg PO BID 04/30/22 10/01/22 History metoprolol succinate 25 mg 25 mg PO QAM 04/30/22 10/01/22 History tablet,extended release 24 hr baclofen 10 mg tablet 10 mg PO TID PRN Spasms 10/01/22 10/01/22 History citalopram 20 mg tablet 20 mg PO DAILY 10/01/22 10/01/22 History lisinopril 10 mg PO DAILY 10/01/22 10/01/22 History Past Med/Surg History Medical History Hearing deficit Hyperlipidemia Hypertension Morbid obesity with BMI of 45.0-49.9, adult Osteoarthritis Pulmonary embolism pt states was over 20+ years ago "due to pneumonia"--was on coumadin for awhile, but then taken off, no issues since Snoring had sleep study test done--never heard results, no device Surgical History History of carpal tunnel release of both wrists History of section History of fusion of cervical spine normal ROM History of tonsillectomy History of tooth extraction History of total hysterectomy with bilateral salpingo-oophorectomy (BSO) History of total left hip replacement History of total right hip replacement Family History Father Hypertension Mother Breast cancer Hypertension Other No family history of adverse response to anesthesia Social History Smoking Status: Former smoker Second Hand Exposure: No; Hx Alcohol Use: Yes Hx Substance Use: No Preferred Language: Panamanian Communication Ability: Effective Assembler Body Required: No Beliefs That Will Affect Care: None Current Living Situation: Family Current Living Situation Comment: Lives with sister Feels Safe at Home: Yes Assistive Devices: None Review of Systems Review of Systems: All systems reviewed & are unremarkable except as noted in Subjective Physical Exam Physical Exam: Physical Exam: Vitals signs as noted above General Appearance:Morbidly Obese, no apparent distress Head: normocephalic, Atraumatic Eyes: normal inspection, EOMI Neck: supple, Trachea midline Respiratory/Chest: Decreased Coarse breath sounds, B/L rhonchi, No accessory muscle use Cardiovascular: S1, S2, No murmur Abdomen/GI:Soft, Non tender, Bowel sounds present Extremities/Musculoskeletal:normal inspection, no edema Neurologic/Psych:AAOX3, grossly no focal neurological deficits Skin: normal color, warm Results & Data Results & Data ([facility]) Vital Signs (Past 12 Hours) Vital Signs Temp Pulse Pulse Resp BP Pulse Ox O2 Del Method 10/01/22 09:30 77 17 136/93 100 Nebulizer 10/01/22 09:06 102 H 18 96 Room Air 10/01/22 06:56 36.5 C 81 22 148/95 H 94 Room Air Laboratory Results Short CBC 10/01/22 Range/Units 07:40 WBC 11.17 H (4.8-10.8) K/ul Hgb 11.6 L (12.0-16.0) g/dl Hct 35.0 (34.1-44.9) % Plt Count 386 (130-400) K/uL BMP 10/01/22 07:40 Sodium 133 L Potassium 3.9 Chloride 101 Carbon Dioxide 25 BUN 11 Creatinine 0.64 Glucose 88 Calcium 8.5 Liver Function 10/01/22 Range/Units 07:40 Total Bilirubin 0.4 (0.2-1.0) mg/dl AST 27 (13-39) U/L ALT 45 (7-52) U/L Alkaline Phosphatase 66 (34-104) U/L Albumin 3.9 (3.4-5.0) gm/dl Diagnostic Findings CXR:Mild ill-defined right basilar opacities on the PA view without correlate on the lateral projection are likely secondary to summation density. Subtle airspace disease considered less likely. Cardiomegaly. ECG Additional Comments: EKG: Normal sinus rhythm, QTC 399. No significant change from prior EKG.
[2022-10-01] MEDS ORDERED: BACLOFEN 10 MG TAB PO PRN (12:08)
[2022-10-01] MEDS ORDERED: POLYETHYLENE (MIRALAX) 17 GM PACK PO PRN (12:08)
[2022-10-01] MEDS ORDERED: ONDANSETRON INJ 2 MG/ML 2 ML VIAL IV PRN (12:08)
[2022-10-01] MEDS ORDERED: BENZONATATE 100 MG CAPSULE PO PRN (12:08)
[2022-10-01] MEDS ORDERED: DOXYCYCLINE HYCLATE 100 MG CAP PO ONE (12:16)
[2022-10-01] MEDS: ACETAMINOPHEN 325 MG TAB PO PRN (12:42)
[2022-10-01] MEDS: OSELTAMIVIR PHOSPHATE 75 MG CAP PO SCH ×2 (12:42→19:55)
[2022-10-01] MEDS: ALBUT/IPRATROP 3MG/0.5MG NEB 3 ML VIAL NEB SCH ×3 (12:46→17:43)
--- NOTE | 2022-10-01 15:02 | Electrocardiogram Report ---
Test Reason : Blood Pressure : / mmHG Vent. Rate : 074 BPM Atrial Rate : 074 BPM P-R Int : 124 ms QRS Dur : 084 ms QT Int : 360 ms P-R-T Axes : 039 039 029 degrees QTc Int : 399 ms Normal sinus rhythm Normal ECG When compared with ECG of 24-FEB-2017 20:47, No significant change was found Confirmed by Cuong Salmeron ([id number]) on 10/01/2022 3:02:10 PM Referred By: REFERRED SELF Confirmed By:Cuong Salmeron
[2022-10-01] MEDS: guaiFENesin/DEXTROM SYRUP 200MG/20MG 10ML UDC PO PRN (15:56)
[2022-10-01] MEDS: ATORVASTATIN 20 MG TAB PO SCH (19:54)
[2022-10-01] MEDS: guaiFENesin 600 MG TABCR PO SCH (19:56)
[2022-10-01 20:25] LABS: Appearance Urine Clear (Clear); Bilirubin Urine Negative (Negative); Blood Urine Negative (Negative); Color Urine Yellow; Glucose Urine UA Negative (Negative); Ketones Urine Negative (Negative); Leukocyte Esterase Urine Negative (Negative); Nitrite Urine Negative (Negative); Protein Urine Negative (Negative); Specific Gravity Urine 1.006 (1.000-1.030); Urobilinogen Urine Negative (Negative)
[2022-10-01] MEDS: GABAPENTIN 600 MG TAB PO SCH (21:26)
[2022-10-01] MEDS: methylPREDNISolone 40 MG in SYRINGE 0 ML IV SCH (21:26)
[2022-10-01] MEDS: AMITRIPTYLINE HCL 25 MG TAB PO PRN (22:30)
[2022-10-02 08:04] LABS: Hematocrit (blood only) 33.5 % (34.1-44.9); Immature Granulocytes # (auto) 0.16 K/uL (0.00-0.02); Immature Granulocytes % (auto) 1.7 %; Lymphocytes # (auto) 1.57 K/uL (1.2-3.4); Lymphocytes % (auto) 16.6 %; Mean Corpuscular Hemoglobin 29.9 pg (25.0-34.0); Mean Corpuscular Hgb Conc 32.8 g/dL (32.0-36.0); Mean Platelet Volume 9.7 fL (9.4-12.3); Monocytes # (auto) 0.71 K/uL (0.24-0.82); Monocytes % (auto) 7.5 %; Neutrophils # (auto) 7.02 K/uL (1.4-6.5); Neutrophils % (auto) 74.2 %; Platelet Count 393 K/uL (130-400); RDW Coefficient of Variation 13.2 % (11.5-14.5); RDW Standard Deviation 43.9 fL (36.4-46.3); Red Blood Count 3.68 M/uL (3.93-5.22); White Blood Count 9.46 K/ul (4.8-10.8)
[2022-10-02] MEDS: ALBUT/IPRATROP 3MG/0.5MG NEB 3 ML VIAL NEB SCH (08:09)
[2022-10-02 08:25] LABS: BUN Creatinine Ratio 22.2 (10-20); Calcium 8.5 mg/dl (8.5-10.1); Creatinine Clr Calc Pharmacy 119.4 ml/min; Est GFR (African American) 114.8 ml/min; Magnesium 2.3 mg/dl (1.7-2.4); Potassium 4.3 mmol/L (3.5-5.1)
[2022-10-02] MEDS ORDERED: cefTRIAXone SODIUM 1,000 MG in DEXTROSE 5% AD-VAN 50 ML IV SCH (09:00)
[2022-10-02] MEDS ORDERED: ALBUT/IPRATROP 3MG/0.5MG NEB 3 ML VIAL NEB PRN (09:21)
[2022-10-02] MEDS: OSELTAMIVIR PHOSPHATE 75 MG CAP PO SCH ×2 (09:27→20:38)
[2022-10-02] MEDS: CITALOPRAM 20 MG TAB PO SCH (09:27)
[2022-10-02] MEDS: guaiFENesin 600 MG TABCR PO SCH ×2 (09:27→20:38)
[2022-10-02] MEDS: DOXYCYCLINE HYCLATE 100 MG CAP PO SCH ×2 (09:28→20:37)
[2022-10-02] MEDS: cefTRIAXone SODIUM 2,000 MG in DEXTROSE 5% 50 ML IV SCH (09:29)
[2022-10-02] MEDS: methylPREDNISolone 40 MG in SYRINGE 0 ML IV SCH ×2 (09:29→20:37)
[2022-10-02] MEDS: ENOXAPARIN INJ 40 MG/0.4 ML SYR SQ SCH (09:30)
[2022-10-02] MEDS: lisinopril 10 MG TAB PO SCH (09:33)
[2022-10-02] MEDS: METOPROLOL SUCC 25MG EXT REL TAB PO SCH (09:33)
[2022-10-02] MEDS: GABAPENTIN 600 MG TAB PO SCH ×2 (10:59→20:38)
[2022-10-02] MEDS: ACETAMINOPHEN 325 MG TAB PO PRN (15:37)
--- NOTE | 2022-10-02 15:58 | Hospitalist Progress Note ---
Date of Service October 02, 2022 Assessment & Plan (1) Influenza A: Plan: Influenza A Acute bronchitis H/O DIPAK ? Underlying COPD CXR:Mild ill-defined right basilar opacities on the PA view without correlate on the lateral projection are likely secondary to summation density. Subtle airspace disease considered less likely. Cardiomegaly Negative for COVID, RSV screen Procalcitonin WNL Blood Cultures negative to date Continue Tamiflu Tamiflu Empirically also started on Rocephin, doxycycline Pulmonary hygiene IV Solu-medrol, bronchodilators: Titrate as able Oxygen support per protocol 2D echo with preserved EF, no wall motion abnormalities May benefit from outpatient PFTs if dyspnea persists Saturating well on room air Dizziness Ambulatory dysfunction Likely secondary to generalized weakness from above PT OT Fall precaution Depression Anxiety disorder Continue home medications Hypertension Continue lisinopril, metoprolol Hyperlipidemia On statin DIPAK CPAP HS Morbid obesity BMI 46 DVT Px: Lovenox SQ Code Status Full Code Admission and Anticipated Discharge Date Admission Date: October 01, 2022 Supervising Physician Co-Signing Physician Notes Attending addendum: The patient was seen and examined in medical floor She has been feeling much better and has decreasing cough and wheezing Denies any fever and or chills Has been ambulating with difficulty Not ready yet to be discharged On examination Sitting on a chair without any acute distress Remains hemodynamically stable Chestdecreased breath sounds with bilateral wheezing and minimal crackles at the bases Heart-S1-S2, regular Abdomen-benign Extremities-no edema Her labs and imaging studies reviewed Has exacerbation of asthma secondary to influenza A Likely discharge tomorrow Agree with assessment and plan as outlined above by LEXY Torrez Dr Subjective Seen and examined in 310. Flu symptoms improving and patient less nauseous. Tolerated breakfast. Still with wheezing, cough and runny nose. Denies any fever or chills. No lightheadedness, chest pain, shortness of breath, vomiting, abdominal pain, dysuria, diarrhea constipation. Review of Systems Review of Systems: At least ten systems reviewed and negative except as noted in the HPI. Physical Exam Physical Exam: Gen: WD/WN, NAD, sitting in bedside chair, A&Ox3 HEENT: Normocephalic, atraumatic, conjunctivae moist, sclerae anicteric, mucous membranes moist Lung: Scattered expiratory wheezes bilaterally. No Rales Heart: Regular rate, regular rhythm, no murmurs, rubs, or gallops Abdomen: Soft, NT, ND +BS x 4 Extremities: no edema Skin: Warm, no rash Results & Data Results & Data ([facility]) Vital Signs (Past 12 Hours) Vital Signs Temp Pulse Resp BP BP Pulse Ox Pulse Ox 10/02/22 15:12 36.8 C 70 20 132/80 94 10/02/22 11:34 97 10/02/22 08:09 66 18 98 10/02/22 07:19 36.6 C 70 20 151/83 H 94 O2 Del Method O2 Flow Rate 10/02/22 15:12 Room Air 10/02/22 11:34 0 10/02/22 08:09 Room Air 10/02/22 07:19 Room Air Laboratory Results Short CBC 10/02/22 Range/Units 07:41 WBC 9.46 (4.8-10.8) K/ul Hgb 11.0 L (12.0-16.0) g/dl Hct 33.5 L (34.1-44.9) % Plt Count 393 (130-400) K/uL BMP 10/02/22 07:41 Sodium 136 Potassium 4.3 Chloride 103 Carbon Dioxide 27 BUN 12 Creatinine 0.54 L Glucose 120 H Calcium 8.5 Urine 10/01/22 Range/Units 19:38 Urine Color Yellow Urine Appearance Clear (Clear) Urine pH 7.0 (4.5-7.5) Ur Specific Larose 1.006 (1.000-1.030) Urine Protein Negative (Negative) Urine Glucose (UA) Negative (Negative) Diagnostic Findings Chest X-Ray 10/01/22 07:00 XR chest 2V PA/lateral HISTORY: 67 years-old Female chest congestion acute cough with congestion COMPARISON: Chest radiograph and CTA chest study is 02/24/2017 TECHNIQUE: PA and lateral views of the chest FINDINGS: Cardiomediastinal and hilar silhouettes are within normal limits. No pneumothorax, pleural effusion or overt pulmonary edema. Ill-defined right basilar predominant opacities are seen best on the PA view. Degenerative changes of the shoulders and spine. IMPRESSION: 1. Mild ill-defined right basilar opacities on the PA view without correlate on the lateral projection are likely secondary to summation density. Subtle airspace disease considered less likely. 2. Cardiomegaly. ACT 112: Negative or not required by law. The above report was generated using voice recognition software. It may contain grammatical, syntax or spelling errors. Electronically signed by: Rolf Mayer M.D. 10/01/2022 7:43 AM
[2022-10-02] MEDS: ATORVASTATIN 20 MG TAB PO SCH (20:37)
[2022-10-02] MEDS: guaiFENesin/DEXTROM SYRUP 200MG/20MG 10ML UDC PO PRN (20:39)
[2022-10-02] MEDS: AMITRIPTYLINE HCL 25 MG TAB PO PRN (22:15)
[2022-10-03 06:44] LABS: Hematocrit (blood only) 34.8 % (34.1-44.9); Hemoglobin 11.6 g/dl (12.0-16.0); Mean Corpuscular Hemoglobin 30.1 pg (25.0-34.0); Mean Corpuscular Hgb Conc 33.3 g/dL (32.0-36.0); Mean Corpuscular Volume 90.4 fL (80.0-100.0); Mean Platelet Volume 9.5 fL (9.4-12.3); Platelet Count 425 K/uL (130-400); RDW Coefficient of Variation 13.2 % (11.5-14.5); RDW Standard Deviation 43.8 fL (36.4-46.3); Red Blood Count 3.85 M/uL (3.93-5.22); White Blood Count 10.62 K/ul (4.8-10.8)
[2022-10-03 07:09] LABS: BUN Creatinine Ratio 28.1 (10-20); Calcium 8.5 mg/dl (8.5-10.1); Creatinine Clr Calc Pharmacy 113.1 ml/min; Est GFR (African American) 112.7 ml/min; Est GFR (Non-African American) 97.3 ml/min; Potassium 4.5 mmol/L (3.5-5.1)
[2022-10-03] MEDS: lisinopril 10 MG TAB PO SCH (08:47)
[2022-10-03] MEDS: cefTRIAXone SODIUM 2,000 MG in DEXTROSE 5% 50 ML IV SCH (08:47)
[2022-10-03] MEDS: methylPREDNISolone 40 MG in SYRINGE 0 ML IV SCH ×2 (08:47→20:01)
[2022-10-03] MEDS: DOXYCYCLINE HYCLATE 100 MG CAP PO SCH ×2 (08:47→20:01)
[2022-10-03] MEDS: ENOXAPARIN INJ 40 MG/0.4 ML SYR SQ SCH (08:47)
[2022-10-03] MEDS: OSELTAMIVIR PHOSPHATE 75 MG CAP PO SCH ×2 (08:47→20:01)
[2022-10-03] MEDS: guaiFENesin 600 MG TABCR PO SCH ×2 (08:48→20:01)
[2022-10-03] MEDS: CITALOPRAM 20 MG TAB PO SCH (08:48)
[2022-10-03] MEDS: GABAPENTIN 600 MG TAB PO SCH ×2 (08:48→20:01)
[2022-10-03] MEDS: METOPROLOL SUCC 25MG EXT REL TAB PO SCH (08:48)
[2022-10-03] MEDS ORDERED: ALBUT/IPRATROP 3MG/0.5MG NEB 3 ML VIAL ONE (10:28)
[2022-10-03] MEDS: guaiFENesin/DEXTROM SYRUP 200MG/20MG 10ML UDC PO PRN ×2 (10:28→21:46)
[2022-10-03] MEDS: ALBUT/IPRATROP 3MG/0.5MG NEB 3 ML VIAL NEB SCH ×3 (10:44→19:50)
--- NOTE | 2022-10-03 13:17 | XRay Report ---
SINGLE VIEW CHEST CLINICAL HISTORY: Aspiration FINDINGS: An AP, portable, upright chest radiograph is compared to study dated 10/01/2022 and correlate d with chest CT dated 02/24/2017. The examination is degraded by portable technique and apical lordoti c positioning. The cardiomediastinal silhouette is unremarkable. Chronic interstitial thickening is s imilar to previous. The lungs and pleural spaces are clear. No pneumothorax is seen. The skeletal str uctures are osteopenic. The bony thorax is grossly intact. IMPRESSION: No active disease in the chest. ACT 112: Negative or not required by law. Electronically signed by: mW Davila M.D. 10/03/2022 1:16 PM
--- NOTE | 2022-10-03 15:16 | Hospitalist Progress Note ---
Date of Service October 03, 2022 Assessment & Plan (1) Influenza A: Plan: Influenza A Acute bronchitis H/O DIPAK ? Underlying COPD CXR:Mild ill-defined right basilar opacities on the PA view without correlate on the lateral projection are likely secondary to summation density. Subtle airspace disease considered less likely. Cardiomegaly Negative for COVID, RSV screen Procalcitonin WNL Blood Cultures negative to date Continue Tamiflu Empirically also started on Rocephin, doxycycline Pulmonary hygiene IV Solu-medrol, bronchodilators: Titrate as able 2D echo with preserved EF, no wall motion abnormalities May benefit from outpatient PFTs if dyspnea persists Plan to transition to prednisone taper tomorrow Has maintained O2 saturation in mid-high 90s on room air Dizziness -> resolving Ambulatory dysfunction Likely secondary to generalized weakness from above PT OT Fall precaution Depression Anxiety disorder Continue home medications Hypertension Continue lisinopril, metoprolol Hyperlipidemia On statin DIPAK CPAP HS Morbid obesity BMI 46 DVT Px: Lovenox SQ Code Status Full Code Admission and Anticipated Discharge Date Admission Date: October 01, 2022 Supervising Physician Co-Signing Physician Notes Attending addendum The patient was seen and examined in medical She has been complaining of more chest tightness and wheezing and shortness of breath with minimal exertion Denies any fever and or chills Cough is better On examination Sitting on a chair with acute distress secondary to minimal shortness of Hemodynamically stable with blood pressure at 144/90 Chest-decreased breath sounds bilaterally with moderate wheezing bilaterally Heart-S1-S2, regular Abdomen-benign Extremities-no edema Her labs and imaging studies reviewed Has exacerbation of asthma secondary to influenza Will add Solu-Medrol 40 mg twice daily today and prednisone 40 mg daily for 5 days Acute discharge tomorrow Agree with assessment plan as outlined above by LEXY Torrez Dr Subjective Seen and examined in 310. Flu symptoms worsened overnight with patient more dyspneic. States she did not use her duo nebs overnight and wishes she would have. Still having cough. Oxygen saturation remaining 95% on room air. Has been ambulating in her room but not much in the hallway. Encouraged to ambulate more prior to returning home. Tolerating diet without any issue. Denies any fever or chills. No lightheadedness, chest pain, vomiting, abdominal pain, dysuria, diarrhea constipation. Review of Systems Review of Systems: At least ten systems reviewed and negative except as noted in the HPI. Physical Exam Physical Exam: Gen: WD/WN, NAD, sitting in bedside chair, A&Ox3 HEENT: Normocephalic, atraumatic, conjunctivae moist, sclerae anicteric, mucous membranes moist Lung: Scattered expiratory wheezes bilaterally. No Rales Heart: Regular rate, regular rhythm, no murmurs, rubs, or gallops Abdomen: Soft, NT, ND +BS x 4 Extremities: no edema Skin: Warm, no rash Results & Data Results & Data ([facility]) Vital Signs (Past 12 Hours) Vital Signs Temp Pulse Resp BP BP Pulse Ox O2 Del Method 10/03/22 12:49 36.7 C 72 16 144/90 H 94 Room Air 10/03/22 11:25 Room Air 10/03/22 10:45 75 18 96 Room Air 10/03/22 07:40 36.4 C L 77 16 154/89 H 94 Room Air 10/03/22 04:09 17 95 FiO2 10/03/22 12:49 10/03/22 11:25 10/03/22 10:45 10/03/22 07:40 10/03/22 04:09 21 Laboratory Results Short CBC 10/03/22 Range/Units 06:01 WBC 10.62 (4.8-10.8) K/ul Hgb 11.6 L (12.0-16.0) g/dl Hct 34.8 (34.1-44.9) % Plt Count 425 H (130-400) K/uL BMP 10/03/22 06:01 Sodium 134 L Potassium 4.5 Chloride 102 Carbon Dioxide 26 BUN 16 Creatinine 0.57 L Glucose 123 H Calcium 8.5 Diagnostic Findings Chest X-Ray 10/01/22 07:00 XR chest 2V PA/lateral HISTORY: 67 years-old Female chest congestion acute cough with congestion COMPARISON: Chest radiograph and CTA chest study is 02/24/2017 TECHNIQUE: PA and lateral views of the chest FINDINGS: Cardiomediastinal and hilar silhouettes are within normal limits. No pneumothorax, pleural effusion or overt pulmonary edema. Ill-defined right basilar predominant opacities are seen best on the PA view. Degenerative changes of the shoulders and spine. IMPRESSION: 1. Mild ill-defined right basilar opacities on the PA view without correlate on the lateral projection are likely secondary to summation density. Subtle airspace disease considered less likely. 2. Cardiomegaly. ACT 112: Negative or not required by law. The above report was generated using voice recognition software. It may contain grammatical, syntax or spelling errors. Electronically signed by: Rolf Mayer M.D. 10/01/2022 7:43 AM Chest X-Ray 10/03/22 12:57 SINGLE VIEW CHEST CLINICAL HISTORY: Aspiration FINDINGS: An AP, portable, upright chest radiograph is compared to study dated 10/01/2022 and correlated with chest CT dated 02/24/2017. The examination is degraded by portable technique and apical lordotic positioning. The cardiomediastinal silhouette is unremarkable. Chronic interstitial thickening is similar to previous. The lungs and pleural spaces are clear. No pneumothorax is seen. The skeletal structures are osteopenic. The bony thorax is grossly intact. IMPRESSION: No active disease in the chest. ACT 112: Negative or not required by law. Electronically signed by: Wm Davila M.D. 10/03/2022 1:16 PM
[2022-10-03] MEDS: ATORVASTATIN 20 MG TAB PO SCH (20:01)
[2022-10-03] MEDS: AMITRIPTYLINE HCL 25 MG TAB PO PRN (21:46)
[2022-10-04 06:00] LABS: Hematocrit (blood only) 34.4 % (34.1-44.9); Hemoglobin 11.5 g/dl (12.0-16.0); Mean Corpuscular Hemoglobin 30.5 pg (25.0-34.0); Mean Corpuscular Hgb Conc 33.4 g/dL (32.0-36.0); Mean Corpuscular Volume 91.2 fL (80.0-100.0); Mean Platelet Volume 9.4 fL (9.4-12.3); Platelet Count 413 K/uL (130-400); RDW Coefficient of Variation 13.3 % (11.5-14.5); RDW Standard Deviation 44.1 fL (36.4-46.3); Red Blood Count 3.77 M/uL (3.93-5.22); White Blood Count 11.54 K/ul (4.8-10.8)
[2022-10-04 06:25] LABS: Calcium 8.4 mg/dl (8.5-10.1); Creatinine Clr Calc Pharmacy 102.4 ml/min; Est GFR (African American) 109.1 ml/min; Est GFR (Non-African American) 94.1 ml/min; Potassium 5.1 mmol/L (3.5-5.1)
[2022-10-04] MEDS: ALBUT/IPRATROP 3MG/0.5MG NEB 3 ML VIAL NEB SCH ×2 (07:41→11:07)
[2022-10-04] MEDS: DOXYCYCLINE HYCLATE 100 MG CAP PO SCH (09:22)
[2022-10-04] MEDS: cefTRIAXone SODIUM 2,000 MG in DEXTROSE 5% 50 ML IV SCH (09:22)
[2022-10-04] MEDS: GABAPENTIN 600 MG TAB PO SCH (09:23)
[2022-10-04] MEDS: CITALOPRAM 20 MG TAB PO SCH (09:23)
[2022-10-04] MEDS: METOPROLOL SUCC 25MG EXT REL TAB PO SCH (09:23)
[2022-10-04] MEDS: methylPREDNISolone 40 MG in SYRINGE 0 ML IV SCH (09:23)
[2022-10-04] MEDS: OSELTAMIVIR PHOSPHATE 75 MG CAP PO SCH (09:23)
[2022-10-04] MEDS: lisinopril 10 MG TAB PO SCH (09:23)
[2022-10-04] MEDS: guaiFENesin 600 MG TABCR PO SCH (09:23)
[2022-10-04] MEDS: ENOXAPARIN INJ 40 MG/0.4 ML SYR SQ SCH (09:24)
--- NOTE | 2022-10-04 11:31 | Discharge Summary ---
Date of Service October 04, 2022 Admission HPI Per Admitting Provider Patient is a 67-year-old female with history of morbid obesity, major depression, anxiety disorder, hypertension Hyperlipidemia, Obstructive Sleep Apnea, Lumbar Spinal Stenosis and Other Medical Problems Presents with History of worsening shortness of breath, cough, chills, orthopnea and nausea. Patient states that she has been having flulike symptoms since Thanksgiving intermittently but over the past 2 weeks have gradually worsened. Reports cough with yellowish expectoration but denies any hemoptysis, fever. Reports having shortness of breath which is gradually worsening over the past 2 weeks associated with orthopnea and worsens with exertion. She has been nauseous since yesterday but no vomiting or diarrhea, abdominal pain. Also reports some chest discomfort of her right rib cage secondary to coughing which worsens with deep breathing. She noticed that she has been wheezing lately. She has poor appetite and has been having dizziness intermittently which she attributes to unsteady gait. She denies any falls, head trauma, loss of consciousness. Denies any history of pedal edema, change in vision, weight loss, dysuria, hematuria. She was treated at [facility] 3 days ago and was prescribed Augmentin, albuterol inhaler and Medrol Dosepak which did not improve her symptoms. Admission Exam Per Admitting Provider Physical Exam: Vitals signs as noted above General Appearance:Morbidly Obese, no apparent distress Head: normocephalic, Atraumatic Eyes: normal inspection, EOMI Neck: supple, Trachea midline Respiratory/Chest: Decreased Coarse breath sounds, B/L rhonchi, No accessory muscle use Cardiovascular: S1, S2, No murmur Abdomen/GI:Soft, Non tender, Bowel sounds present Extremities/Musculoskeletal:normal inspection, no edema Neurologic/Psych:AAOX3, grossly no focal neurological deficits Skin: normal color, warm Principal Diagnosis Influenza A Acute bronchitis Mild exacerbation of underlying asthma Discharge Exam GENERAL: Alert and oriented x3. NAD, on RA. Obesity class III. HEENT: No pallor, no icterus. Pupils equal, round and reactive to light. Oral mucosa moist. NECK: No JVD, no neck masses. HEART: S1 and S2 heard. Regular rate and rhythm. No murmur, no gallop. RESPIRATORY SYSTEM: Normal AP diameter. No accessory muscle use. b/b wheezing, no crackles. ABDOMEN: Soft, bowel sounds present, nontender, no distention. CENTRAL NERVOUS SYSTEM: No facial droop. Speech is clear. Obeys simple commands. Moves extremities. EXTREMITIES: No edema, no erythema seen. Discharge Data Allergies Allergy/AdvReac Type Severity Reaction Status Date / Time codeine AdvReac Mild GI UPSET Verified 05/09/22 08:43 oxycodone AdvReac Mild N/V per Verified 05/09/22 08:43 records propoxyphene AdvReac Mild GI UPSET Verified 05/09/22 08:43 Consultations 10/01/22 09:49 ED Decision to Admit Stat Hospital Course (1) Influenza A: 67 yo F was managed for the following: Influenza A Acute bronchitis H/O DIPAK ? Underlying COPD CXR:Mild ill-defined right basilar opacities on the PA view without correlate on the lateral projection are likely secondary to summation density. Subtle airspace disease considered less likely. Cardiomegaly Negative for COVID, RSV screen Procalcitonin WNL Blood Cultures negative to date. Continue Tamiflu Empirically also started on Rocephin, doxycycline -- complete course. Pulmonary hygiene IV Solu-medrol -- on tapering prednisone on DC. 2D echo with preserved EF, no wall motion abnormalities May benefit from outpatient PFTs if dyspnea persists reports feeling better and would like to go home as soon as possible today. Dizziness -> resolved. Ambulatory dysfunction Likely secondary to generalized weakness from above PT OT Fall precaution Depression Anxiety disorder Continue home medications Hypertension Continue lisinopril, metoprolol Hyperlipidemia On statin DIPAK CPAP HS Morbid obesity BMI 46 DVT Px: Lovenox SQ Code Status Full Code Patient being discharged home with following instruction at the point of d ischarge: Follow-up with your primary care physician within a week time and likely you will need blood labs CBC/CMP. Take antibiotics to complete the course for acute bronchitis. You will be discharged on prednisone 40 mg daily for 3 days from tomorrow followed by 20 mg daily for next 3 days for concern of your mild asthma exacerbation. Take your medications as prescribed. Please make sure that you are able to get your medications today by calling your pharmacy before you leave the hospital so that your treatment continuity is not broken. Home Health Attestation I certify that this patient is under my care and that I, or a physicians library services assistant working with me, had a face to-face encounter that meets the home health gaur-bu-hnyh encounter requirements with this patient. The encounter with the patient was in whole, or in part, for the following medical condition, which is the primary reason for home health care (list medical condition): I certify that, based on my findings, the following services are medically necessary home health services: My clinical findings support the need for the above services because: Further, I certify that my clinical findings support that this patient is homebound (i.e. absences from home require considerable and taxing effort and are for medical reasons or baptism services or infrequently or of short duration when for other reasons) because: Certification for Home Health Services: Based on the above findings, I certify that this patient is confined to the home and needs intermittent care home care, physical therapy and/or speech therapy or continues to need occupational therapy. The patient is under my care, and I have initiated the establishment of the plan of care. This patient will be followed by a physician who will periodically review the plan of care. Total Time Total Time Spent Total Time Spent (In Minutes): 45 Discharge Plan Discharge Items Patient Disposition: Home - Self-Care Reason For Visit: INFLUENZA A Discharge Diagnosis: Influenza A Acute bronchitis Mild exacerbation of underlying asthma Activity: Resume your previous activity Non-emergency contact: Primary Care Provider Call non-emergency contact if: you have any medication questions, your symptoms worsen and your temperature is above 101 Follow-up/Referrals: Debora Khan DO [Primary Care Provider] - (Date & Time 10/06/2022 1:00 PM Provider Debora Khan DO Department [facility] [address] [facility] ) Diet: Heart Healthy Add Attending Provider Instructions: Follow-up with your primary care physician within a week time and likely you will need blood labs CBC/CMP. Take antibiotics to complete the course for acute bronchitis. You will be discharged on prednisone 40 mg daily for 3 days from tomorrow followed by 20 mg daily for next 3 days for concern of your mild asthma exacerbation. Take your medications as prescribed. Please make sure that you are able to get your medications today by calling your pharmacy before you leave the hospital so that your treatment continuity is not broken. Pending Studies at Discharge: Yes (Admitting blood culture final results.) Stand-Alone Forms: [facility] [employer], Smoking Cessation Medications and DC Order Prescriptions: New doxycycline hyclate 100 mg Capsule 100 mg PO BID 5 Days Qty: 10 0RF oseltamivir [Tamiflu] 75 mg Capsule 75 mg PO BID 2 Days Qty: 4 0RF Robitussin Cough-Chest Jey DM 5-100 mg/5 mL Liquid 10 ml PO Q6H PRN (Reason: cough) 7 Days Qty: 237 0RF guaifenesin [Mucinex] 600 mg Tablet Extended Release 12hr 600 mg PO Q12 5 Days Qty: 10 0RF cefdinir 300 mg capsule 300 mg PO BID 2 Days Qty: 4 0RF Continued gabapentin 600 mg Tablet 600 mg PO BID atorvastatin 20 mg Tablet 20 mg PO HS amitriptyline 25 mg Tablet 25 mg PO HS PRN (Reason: Sleep) metoprolol succinate 25 mg Tablet Extended Release 24 Hr 25 mg PO QAM baclofen 10 mg tablet 10 mg PO TID PRN (Reason: Spasms) citalopram 20 mg tablet 20 mg PO DAILY lisinopril 10 mg PO DAILY Discharge Orders: Discharge Order (Routine); Ordered 10/04/22 Ordered By: Rosa Webster Admission Data Admit Date/Time: 10/01/22 10:35 Attending Provider: Rosa Webster Admit Provider: Doug Louise Primary Care Provider: Debora Khan Other Providers: Doug Louise ; Yeni Jane
== END 2022-10-04 12:30 | disposition home or self-care (01) | DRG 194 ==
LOC: ED 06:47 → EDINP 10:35 → SUATTDRO 10:35 → EDINP 12:09 → 3E 18:31

== ENCOUNTER 2024-03-28 15:30 | Inpatient (IN) ==
--- NOTE | 2024-03-28 15:36 | ED Triage Note ---
Date of Service March 28, 2024 Provider in Triage Author: Jeanette Arndt History of Present Illness This patient was briefly evaluated while in triage. An abbreviated physical exam was performed. This patient is a 69-year-old Female who presents to the ED for evaluation left flank injury 2 days ago tripped and fell on left side left rib and back pain abdominal pain and bloating no hematuria Physical Exam GENERAL: Obvious distress, holding left flank CARDIOVASCULAR: RRR RESPIRATORY: CTA SPINE: TTP along thoracic and lumbar spine, and in left posterior ribs ABDOMEN: BS x 4. LUQ TTP. Initial orders for labs and / or imaging were placed and patient was placed in the waiting area until a bed is available. Please see further documentation for the full ED course.
[2024-03-28 16:19] LABS: iSTAT Creatinine 0.6 mg/dl (0.6-1.3); iSTAT Hemoglobin 12.9 g/dl (12.0-16.0); iSTAT Ionized Calcium 1.16 mmol/l (1.12-1.32); iSTAT Potassium 4.5 mmol/L (3.3-5.0)
[2024-03-28 16:26] LABS: Basophils # (auto) 0.02 K/uL (0.00-0.20); Basophils % (auto) 0.3 %; Eosinophils # (auto) 0.23 K/uL (0.00-0.50); Eosinophils % (auto) 3.4 %; Hematocrit (blood only) 34.1 % (37.0-47.0); Hemoglobin 11.6 g/dl (12.0-16.0); Immature Granulocytes # (auto) 0.02 K/uL (0.01-0.20); Immature Granulocytes % (auto) 0.3 %; Lymphocytes # (auto) 1.57 K/uL (1.20-3.40); Lymphocytes % (auto) 23.1 %; Mean Corpuscular Hemoglobin 30.1 pg (25.0-34.0); Mean Corpuscular Volume 88.3 fL (80.0-100.0); Mean Platelet Volume 9.7 fL (9.4-12.4); Monocytes # (auto) 0.69 K/uL (0.11-0.59); Monocytes % (auto) 10.1 %; Neutrophils # (auto) 4.27 K/uL (1.40-6.50); Neutrophils % (auto) 62.8 %; Platelet Count 332 K/uL (130-400); RDW Coefficient of Variation 13.3 % (11.5-14.5); RDW Standard Deviation 43.1 fL (36.4-46.3); Red Blood Count 3.86 M/uL (4.20-5.40)
[2024-03-28 16:36] LABS: Alanine Aminotransferase 14 U/L (7-52); Albumin Globulin Ratio 1.6 (0.9-2); Albumin Level 4.4 gm/dl (3.4-5.0); Alkaline Phosphatase 99 U/L (34-104); Anion Gap 6 (3-11); Aspartate Aminotransferase 19 U/L (13-39); BUN Creatinine Ratio 17.5 (10-20); Bilirubin,Total 0.8 mg/dl (0.2-1.0); Blood Urea Nitrogen 10 mg/dl (6-23); Calcium 9.2 mg/dl (8.6-10.3); Carbon Dioxide 26 mmol/L (21-32); Chloride 97 mmol/L (98-107); Est GFR (African American) 111.2 ml/min; Est GFR (Non-African American) 95.9 ml/min; Globulin 2.7 gm/dl (2.5-4.0); Glucose 88 mg/dl (70-99(Fasting)); Potassium 4.4 mmol/L (3.5-5.1); Sodium 129 mmol/L (136-145); Total Protein 7.1 gm/dl (6.0-8.3)
[2024-03-28] MEDS: OPTIRAY 320 100ml IV ONE (16:49)
--- NOTE | 2024-03-28 17:00 | CT Scan Report ---
CT abd pelvis IV con only, CT lumbar spine w con CLINICAL HISTORY: LEFT FLANK TRAUMA TECHNIQUE: Helical axial images of the abdomen and pelvis were obtained and displayed. Automated dose lowering techniques and/or adjustment according to patient size were utilized for this exam. Dedicat ed images of the lumbar spine were obtained. This exam was performed with intravenous contrast. COMPARISON: Comparison is made to CT abdomen pelvis 12/04/2023 FINDINGS: Lower chest: For findings above the diaphragm, please see CT chest performed same day. Liver: Unremarkable. No focal lesions are seen. Gallbladder and biliary tree: No calcified gallstones. Normal caliber wall. No intra- or extrahepatic biliary ductal dilation. Pancreas: Unremarkable, no focal lesions. Spleen: Unremarkable. Adrenals: Unremarkable. Kidneys and ureters: Unremarkable. Bladder: Unremarkable. Reproductive organs: Evaluation is limited by streak artifact. Bowel: Unremarkable. Lymph nodes Retroperitoneal: Unremarkable. Pelvic: Unremarkable. Mesenteric: Unremarkable. Peritoneum: Normal. Vessels: Unremarkable. Abdominal wall: Unremarkable. 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 There is partial visualization of left rib fractures be tter evaluated on CT chest. IMPRESSION: Please see CT chest for findings of left rib fracture. No abnormalities are seen below the diaphragm. ACT 112: Negative or not required by law. Electronically signed by: Henri Contreras M.D. 03/28/2024 4:58 PM
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
[2024-03-28] MEDS: ONDANSETRON INJ 2 MG/ML 2 ML VIAL IV STA (17:13)
[2024-03-28] MEDS: MoRPHine SULFATE 4 MG/ML 1 ML CARP\\VIAL IV STA (17:16)
[2024-03-28] MEDS: SODIUM CHLORIDE 0.9% 500 ML IV SCH (17:20)
--- NOTE | 2024-03-28 17:28 | CT Scan Report ---
CT chest diagnostic w con, CT thoracic spine w con CLINICAL HISTORY: LEFT FLANK TRAUMA TECHNIQUE: Multidetector row helical CT of the chest was performed with intravenous contrast. Coronal and sagittal reformations were obtained. Automated dose lowering techniques and/or adjustment accord ing to patient size were utilized for this exam. Dedicated images of the thoracic spine were obtained . CT DOSE: 2009.86 mGy.cm Comparison: Comparison is made to CT chest 02/24/2017 FINDINGS: Lungs and pleura: Atelectasis is seen and there is bronchial wall thickening. There is a 2 mm nodule in the right upper lobe (series 6 image 69). No pneumothorax is seen. Heart and pericardium: Heart size is normal. No pericardial effusion. Vessels: Moderate atherosclerotic changes in the aorta and coronary arteries. Mediastinum and gisella: Subcentimeter lymph nodes are seen. Chest wall and lower neck: Unremarkable. Abdomen: For findings below the diaphragm, please refer to CT of the abdomen dated the same. Bones: There is a fracture of the posterior left eighth rib. IMPRESSION: 1. Left eighth rib fracture is seen without evidence of pneumothorax or other acute abnormality. 2. Bronchial wall thickening may represent infectious/inflammatory airways disease. ACT 112: Negative or not required by law. Electronically signed by: Henri Contreras M.D. 03/28/2024 5:25 PM
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
[2024-03-28] MEDS: LIDOCAINE 5% 1 PATCH TD SCH (19:07)
[2024-03-28] MEDS: KETOROLAC 30 MG/ML VIAL IV ONE (19:07)
[2024-03-28] MEDS ORDERED: POLYETHYLENE (MIRALAX) 17 GM PACK PO PRN (20:18)
[2024-03-28] MEDS ORDERED: ALUMINUM/MAGNESIUM SUSP 30 ML UDC PO PRN (20:18)
[2024-03-28] MEDS ORDERED: ONDANSETRON INJ 2 MG/ML 2 ML VIAL IV PRN (20:18)
[2024-03-28] MEDS ORDERED: MoRPHine SULFATE 4 MG/ML 1 ML CARP\\VIAL IV PRN (20:18)
[2024-03-28] MEDS ORDERED: MAGNESIUM HYDROXIDE SUSP 30 ML UDC PO PRN (20:18)
[2024-03-28] MEDS: AZELASTINE HCL 0.1% NASAL 200 SPRAYS/27,400 MCG BTL SCH (21:10)
[2024-03-28] MEDS: buPROPion SR 150 MG TABCR PO SCH (21:12)
[2024-03-28] MEDS: ATORVASTATIN 20 MG TAB PO SCH (21:12)
[2024-03-28] MEDS: GABAPENTIN 600 MG TAB PO SCH (21:12)
[2024-03-28] MEDS: ACETAMINOPHEN 325 MG TAB PO SCH (21:12)
[2024-03-28] MEDS: traMADol HCL 50 MG TABLET PO PRN (21:12)
[2024-03-28] MEDS: DOCUSATE SODIUM/SENNA 50/8.6MG TAB PO SCH (21:12)
[2024-03-28] MEDS: PANTOprazole 40 MG TAB PO SCH (21:44)
[2024-03-29] MEDS: MELATONIN 3 MG TAB PO PRN (01:53)
[2024-03-29] MEDS: KETOROLAC TROMETHAMINE 15 MG/ML VIAL IV ONE (01:54)
[2024-03-29] MEDS: KETOROLAC TROMETHAMINE 15 MG/ML VIAL IV SCH (06:17)
[2024-03-29 06:35] LABS: Appearance Urine Clear (Clear); Bacteria Urine Automated None Seen (None Seen); Bilirubin Urine Negative (Negative); Blood Urine Negative (Negative); Cast Urine Automated 0-2 /lpf (0-2); Color Urine Yellow; Epithelial Cell Urine Auto 0-2 /hpf (0-2); Glucose Urine UA Negative (Negative); Ketones Urine Negative (Negative); Leukocyte Esterase Urine 1+ (Negative); Nitrite Urine Negative (Negative); Protein Urine Negative (Negative); RBC Urine Automated 0-2 /hpf (0-2); Specific Gravity Urine 1.042 (1.000-1.030); Urobilinogen Urine Negative (Negative); WBC Urine Automated 0-5 /hpf (0-5); pH Urine 6.5 (4.5-7.5)
[2024-03-29 06:41] LABS: Basophils # (auto) 0.03 K/uL (0.00-0.20); Basophils % (auto) 0.5 %; Eosinophils # (auto) 0.32 K/uL (0.00-0.50); Eosinophils % (auto) 5.1 %; Hematocrit (blood only) 31.5 % (37.0-47.0); Hemoglobin 10.6 g/dl (12.0-16.0); Immature Granulocytes # (auto) 0.01 K/uL (0.01-0.20); Immature Granulocytes % (auto) 0.2 %; Lymphocytes # (auto) 2.09 K/uL (1.20-3.40); Lymphocytes % (auto) 33.1 %; Mean Corpuscular Hemoglobin 30.5 pg (25.0-34.0); Mean Corpuscular Hgb Conc 33.7 g/dL (32.0-36.0); Mean Corpuscular Volume 90.8 fL (80.0-100.0); Mean Platelet Volume 9.8 fL (9.4-12.4); Monocytes # (auto) 0.56 K/uL (0.11-0.59); Monocytes % (auto) 8.9 %; Neutrophils # (auto) 3.31 K/uL (1.40-6.50); Neutrophils % (auto) 52.2 %; Platelet Count 299 K/uL (130-400); RDW Coefficient of Variation 13.3 % (11.5-14.5); RDW Standard Deviation 44.6 fL (36.4-46.3); Red Blood Count 3.47 M/uL (4.20-5.40); White Blood Count 6.32 K/ul (4.8-10.8)
--- OUTSIDE RECORDS SUMMARY | 2024-03-29 07:02 | External Medical Summary | Summary of Care ---
Author Name Unknown Organization [facility] Address [address] [place] [address] Phone [phone] Care Team Providers Care A P Supervisor Name Role Phone Sunshine Chapa MD Primary Care Provid er Reason for Visit * Reason Onset Date Comments Advice 01/13/2024 Encounter Details Date Type Department Care Team (Late st Contact Info) Description 01/13/2024 Telephone [facility] [address] [facility] [place] [address] Sunshine Chapa MD [address] [place] [address] Advice Allergies Active Allergy Reactions Criticality Noted Date Comments Codeine Nausea/vomiting 06/06/2014 Oxycodone Base Nausea/vomiting 11/24/2013 Propoxyphene Napsylate 04/01/2001 documented as of this encounter (statuses as of 01/14/2024) Medications Medication Sig Dispensed Refills Start Date End Date Status Amitriptyline HCl 25 MG Oral Tablet (Elavil) Take 1 Tablet by mouth in the morning. 0 05/28/2020 Active Gabapentin 600 MG Oral Tablet (Neurontin) 0 06/07/2022 Active LORazepam 1 MG Oral Tablet 0 10/22/2021 Active Azelastine HCl 0.1 % Nasal Solution (Astelin)Indication s:Nasal congestion Administer 1 [place] into nostril in the morning and 1 [place] before bedtime. 30 mL 12 11/25/2022 Active Betamethasone Dipropionate 0.05 % External OintmentIndications :Irritant contact dermatitis due to other chemical products Apply to hands twice daily 50 g 1 11/25/2022 Active Lisinopril 10 MG Oral Tablet (Prinivil)Indicatio ns:HTN, goal below 140/90 Take 1 Tablet by mouth in the morning. 90 Tablet 3 02/24/2023 Active Citalopram Hydrobromide 20 MG Oral Tablet (CeleXA)Indications :Depression with anxiety Take 1 Tablet by mouth in the morning. In the morning.. 90 Tablet 1 07/06/2023 Active Atorvastatin Calcium 20 MG Oral Tablet (Lipitor)Indication s:Dyslipidemia, goal LDL below 70 TAKE 1 TABLET BY MOUTH ONCE DAILY FOR CHOLESTEROL 90 Tablet 3 07/23/2023 Active Meclizine HCl 25 MG Oral Tablet (Antivert) Take 1 Tablet by mouth 3 times a day as needed for Dizziness. 30 Tablet 1 10/06/2023 Active Clotrimazole-Betame th & Zn Ox 1-0.05 & 20 % External Therapy PackIndications:Int ertrigo Apply thin film to affected areas, twice a day for 2 weeks. Apply to area under abdominal area. 135 g 1 10/06/2023 Active Clotrimazole 1 % External Cream (Lotrimin)Indicatio ns:Intertrigo Coadminister cream with triamcinolone cream. Apply to rash on lower abdomen area. 15 g 1 10/08/2023 Active Triamcinolone Acetonide 0.1 % External Cream (Aristocort)Indicat ions:Intertrigo Apply topically to affected area 2 times a day. Coadminister cream with clotrimazole cream. To affected area. 80 g 5 10/08/2023 Active Ondansetron HCl 4 MG Oral Tablet 1 Tablet. 0 03/04/2023 Active buPROPion HCl ER (SR) 150 MG Oral Tablet Extended Release 12 Hour (Wellbutrin SR) Take 1 tab by mouth once a day for 1 week then take 1 tab twice a day (morning & late afternoon) 60 Tablet 4 10/29/2023 Active Metoprolol Succinate ER 25 MG Oral Tablet Extended Release 24 Hour (toPROL XL) 0 12/02/2023 Active traMADol HCl 50 MG Oral Tablet (Ultram) 0 10/30/2023 Active documented as of this encounter (statuses as of 01/14/2024) Active Problems Problem Noted Date Diagnosed Date Morbid obesity due to excess calories 11/12/2023 Psoriasis palmaris 11/12/2023 Intertrigo 10/08/2023 Body mass index (BMI) of 40.0 to 44.9 in adult 1 11/08/2022 Overview: Per Obesity protocol Recurrent major depressive disorder 08/22/2022 Hyperlipidemia 06/12/2022 History of pulmonary embolism 12/30/2017 Overview: History of VTE x 2 (both provoked, hypercoag work up was negative in 2017, completed coumadin therapy) HTN, goal below 140/90 12/14/2014 H/O: hysterectomy 01/04/2014 Spinal stenosis of lumbar re gion without neurogenic claudication 03/30/2007 Lumbosacral spondylosis 12/29/2006 Anxiety state 06/24/2001 documented as of this encounter (statuses as of 01/14/2024) Resolved Problems Problem Noted Date Diagnosed Date Resolved Date Prediabetes 10/06/2023 11/12/2023 Class 3 severe obesity due t o excess calories with body mass index (BMI) of 45.0 to 49.9 in adult 10/06/2022 09/10/2023 Overview: Per Obesity protocol Body mass index (BMI) of 40. 0 to 44.9 in adult 10/06/2022 11/12/2022 Overview: Per Obesity protocol - - Body mass index (BMI) of 45. 0 to 49.9 in adult 05/11/2018 10/09/2022 Overview: Per Obesity protocol #1 - Body mass index (BMI) of 40. 0 to 44.9 in adult 08/11/2017 05/15/2018 Overview: Per Obesity protocol #1 - Per Obesity protocol #1 Body mass index (BMI) of 45. 0 to 49.9 in adult 06/29/2017 08/14/2017 Overview: Per Obesity protocol #1 Morbid obesity due to excess calories 06/05/2017 11/13/2022 Overview: DUPLICATE Pulmonary embolism and infarction 02/26/2017 12/30/2017 Hyperhidrosis 05/13/2016 03/02/2017 Overview: ICD-10 update of inactive term Dyslipidemia, goal LDL below 130 02/10/2014 11/13/2022 Overview: DUPLICATE HTN, goal below 140/80 02/10/201412/14 Obesity, Class II, BMI 35-39 .9, isolated (see actual BMI) 12/24/2009 03/02/2017 Overview: Per Obesity Taxonomy ADVANCE DIRECTIVE INFORMATION 06/27/2005 06/05/2017 Overview: No, Advance Directive brochure given to patient at prior appointment. Displacement of lumbar inter vertebral disc without myelopathy 12/26/2002 06/05/2017 Lumbago 12/26/2002 03/02/2017 Thoracic and lumbosacral neuritis 12/26/2002 06/05/2017 OTHER PULMONARY EMBOLISM AND INFARCTION 12/01/2002 06/05/2017 OBESITY, UNSPECIFIED 06/15/2002 010 Overview: Per Obesity Taxonomy COMMON MIGRAINE WITHOUT MENT ION OF INTRACTABLE MIGRAINE 06/15/2002 06/05/2017 BACKACHE NOS 12/03/2001 09/14/2015 Major depressive disorder 06/24/2001 Overview: ICD-10 update of inactive term MORE SPECIFIED CODE LISTED ON PL documented as of this encounter (statuses as of 01/14/2024) Immunizations Name Administration Dates Next Due Covid-19 Ad26, Single Dose (Bennie/J&J) 021,10/12/2020 PPD 01/25/2004,08/17/2001 Pneumococcal Conjugate Vacci ne, 20-valent ([id number]) 04/29/2022 Seasonal Influenza, PF, 6 M & above, IM , (FluLaval or Fluzone) 07/12/2019,07/07/2017 Seasonal Influenza, Quadriva lent Hd (Fluzone Hd) 06/12/2022 Seasonal Influenza, Quadriva lent, No Preserve, IM 07/01/2020,10/22/2019,06/16/2016 Seasonal Influenza, Split, I IV3, With Preserve, Inj 06/06/2014,07/24/2003 TD, Preservative Free 03/25/2022 TDAP (age 10 and older)(Boostrix) 05/06/2013 Varicella Zoster Vaccine (Adult) 06/29/2017 Zoster Vaccine Recombinant (Shingrix) 04/29/2022 ,12/28/2021 documented as of this encounter Social History Tobacco Use Types Packs/Day Years Used Date Smoking Tobacco: Former Cigarettes 0.5 4 0 06/02/2009 - 06/02/2013 Smokeless Tobacco: Never Alcohol Use Standard Drinks/Week Comments Not Currently 0 (1 standard drink = 0.6 oz pur e alcohol) rarely PHQ-2 Answer Date Recorded PHQ Adult Total Score 1 10/20/2022 Hunger Vital Sign Answer Date Recorded Within the past 12 months, y ou worried that your food would run out before you got the money to buy more. Never true 10/20/19 23 Within the past 12 months, t he food you bought just didn't last and you didn't have money to get more. Never true 10/20/2022 Sex and Gender Information Value Date Recorded Sex Assigned at Female 04/29/2022 9:06 AM EDT Gender Identity Female 04/29/2022 9:06 AM EDT Sexual Orientation Straight 01/31/2020 8: 10 AM EDT Job Start Date Occupation Industry Not on file Not on file Not on file documented as of this encounter Miscellaneous Notes * Telephone Encounter - Elizabeth Nava OSA - 01/14/2024 9:32 AM EDT Spoke to patient and she states she's not as itchy today an she will wait to see if it gets better. Patient declined scheduling. 01/14/2024 * Telephone Encounter - Sunshine Chapa MD - 01/13/2024 2:16 PM EDT Please help her find appt with any provider available, any office ([facility] / [facility] too). * Telephone Encounter - Tawana Valerio OSA - 01/13/2024 1:57 PM EDT No Appointments Available Patient declined appointments?: No What Visit Type is needed? Acute If Acute Visit Type is needed, were surrounding clinics offered to patient (Yes/No)? N/A Was patient offered appointments with other available providers (Yes/No)? N/A See Call Details? (Yes or No): No, patient stated she is feeling very itchy on her stomach and lower back. She stated this has been going on for 2 weeks, she thought at first it was dry skin but now believes it is her nerves. She stated she has tried benadryl and Cortizone lotion and they didn't not help. She stated she did not and does not have a rash but she did scratch herself open in some places due to itching. Patient is requesting appt or medication to help this. Please documented in this encounter Plan of Treatment Upcoming Encounters Date Type Department Care Team (Late st Contact Info) Description 02/12/2024 9:00 AM EDT [facility] [address] [facility] [id number] Sunshine Chapa MD [address] [facility] [place] [address] 03/02/2024 2:00 PM EDT Office Visit [facility], [facility] [address] [address] Ekaterina Shearer PA-C [address] [place] [address] [address] 05/03/2024 10:20 AM EDT Office Visit [facility] [address] [place] [phone] Josefina Adams, [address] [place] [address] Health Maintenance Due Date Last Done Comments Cologuard 2002 Fecal Occult Blood Test 2002 Sigmoidoscopy 2002 COVID-19 Vaccine ( season) 2023 03/09/2021, 10/12/2020 Mammogram 05/20/2024 05/20/2023, 04/29, 04/25/2022, Additional history exists Influenza Vaccine (FLU shot) (Season Ended) 2024 06/12/2022, 07/01/2020, 10/22/2019, Additional history exists GFR 10/27/2024 10/27/2023, 05/2024, 02/24/2023, Additional history exists Albumin/Creatinine Ratio 05/15/2025 05/15/2022 DXA Scan 08/12/2026 08/12/2022, 08/12/2022 Diabetes Screening 10/27/2026 10/27/2023, 0 10/06/2023, 05/21/2023, Additional history exists Lipid Panel 05/21/2028 05/21/2023, 02/27, 02/27/2021, Additional history exists DTaP,Tdap,and Td Vaccines (3 - Td or Tdap) 03/25/2032 03/25/2022, 05/06/2013 Colonoscopy 05/09/2032 05/09/2022, 05/09/2022 Colorectal Cancer Screening 05/09/2032 Pneumococcal Vaccine: 65+ Years Completed 04/29/2022 Zoster Vaccines Completed 04/29/2022, 040 10/2021, 06/29/2017 GARDASIL-HPV IMMUNIZATION SERIES Aged Out No longer eligible based on patient's age to complete this topic Hepatitis B Aged Out No longer eligi ble based on patient's age to complete this topic MENINGOCOCCAL (MENACTRA/MENVEO) Aged Out No longer eligible based on patient's age to complete this topic documented as of this encounter Medical Devices Not on filedocumented as of this encounter Care Teams A P Supervisor Relationship Specialty Start Date End Date Sunshine Chapa MD [address] [place] [address] PCP - General Family Medicine 10/06/23 documented as of this encounter
--- OUTSIDE RECORDS SUMMARY | 2024-03-29 07:02 | External Medical Summary ---
Author Name Unknown Address Unknown Organization [id number]:[facility] [place] [address] [place] [address] Laboratory Report Ordering Provider Test Date Status MEIR ALDRICH 03/02/2024 14:30:09 Final Observation Date Value Abnormality Reference (Units ) Status Vitamin B12 03/02/2024 14:30:09 [phone] (pg/mL) Final Performing Location [facility] - [address] [place] [id number]
--- OUTSIDE RECORDS SUMMARY | 2024-03-29 07:02 | External Medical Summary | Summary of Care ---
Author Name Unknown Organization [facility] Address [address] [place] [address] Phone [phone] Care Team Providers Care Vehicle Window Tinter Name Role Phone Sunshine Chapa MD Primary Care Provid er Reason for Visit * Reason Comments eRx-Medication Refill Encounter Details Date Type Department Care Team (Late st Contact Info) Description 03/13/2024 Refill [facility] [address] [place] [address] Ofe Sorensen PA-C [address] [place] [address] HTN, goal below 140/90 Allergies Active Allergy Reactions Criticality Noted Date Comments Codeine Nausea/vomiting 06/06/2014 Naltrexone Itching Medium 03/02/2024 Oxycodone Base Nausea/vomiting 11/24/2013 Propoxyphene Napsylate 04/01/2001 documented as of this encounter (statuses as of 03/14/2024) Medications Medication Sig Dispensed Refills Start Date End Date Status Amitriptyline HCl 25 MG Oral Tablet (Elavil) Take 1 Tablet by mouth in the morning. 05/28/2020 Active Gabapentin 600 MG Oral Tablet (Neurontin) 06/07/2022 Active LORazepam 1 MG Oral Tablet 10/22/2021 Active Azelastine HCl 0.1 % Nasal Solution (Astelin)Indicati ons:Nasal congestion Administer 1 [place] into nostril in the morning and 1 [place] before bedtime. 30 mL 12 11/25/2022 Active Citalopram Hydrobromide 20 MG Oral Tablet (CeleXA)Indicatio ns:Depression with anxiety Take 1 Tablet by mouth in the morning. In the morning.. 90 Tablet 1 07/06/2023 Active Atorvastatin Calcium 20 MG Oral Tablet (Lipitor)Indicati ons:Dyslipidemia, goal LDL below 70 TAKE 1 TABLET BY MOUTH ONCE DAILY FOR CHOLESTEROL 90 Tablet 3 07/23/2023 Active Meclizine HCl 25 MG Oral Tablet (Antivert) Take 1 Tablet by mouth 3 times a day as needed for Dizziness. 30 Tablet 1 10/06/2023 Active Ondansetron HCl 4 MG Oral Tablet 1 Tablet. 03/04/2023 Active buPROPion HCl ER (SR) 150 MG Oral Tablet Extended Release 12 Hour (Wellbutrin SR) Take 1 tab by mouth once a day for 1 week then take 1 tab twice a day (morning & late afternoon) 60 Tablet 4 10/29/2023 Active Vitamin D (Ergocalciferol) 1.25 MG (14434 UT) Oral Capsule (Drisdol) Take 1 Capsule by mouth once a week. 8 Capsule 03/09/2024 Active Lisinopril 10 MG Oral Tablet (Prinivil)Indicat ions:HTN, goal below 140/90 TAKE 1 TABLET BY MOUTH EVERY MORNING 90 Tablet 3 03/14/2024 Active Lisinopril 10 MG Oral Tablet (Prinivil)Indicat ions:HTN, goal below 140/90 Take 1 Tablet by mouth in the morning. 90 Tablet 3 02/24/2023 Discontinued documented as of this encounter (statuses as of 03/14/2024) Active Problems Problem Noted Date Diagnosed Date At risk for falls 02/26/2024 Personal history of fall 02/26/2024 Physical deconditioning 02/26/2024 Morbid obesity due to excess calories 11/12/2023 Psoriasis palmaris 11/12/2023 Intertrigo 10/08/2023 Recurrent major depressive disorder 08/22/2022 Hyperlipidemia 06/12/2022 History of pulmonary embolism 12/30/2017 Overview: History of VTE x 2 (both provoked, hypercoag work up was negative in 2017, completed coumadin therapy) HTN, goal below 140/90 12/14/2014 H/O: hysterectomy 01/04/2014 Spinal stenosis of lumbar re gion without neurogenic claudication 03/30/2007 Lumbosacral spondylosis 12/29/2006 Anxiety state 06/24/2001 documented as of this encounter (statuses as of 03/14/2024) Resolved Problems Problem Noted Date Diagnosed Date Resolved Date Prediabetes 10/06/2023 11/12/2023 Body mass index (BMI) of 40. 0 to 44.9 in adult 09/07/2023 02/23/2024 Overview: BMI 35.84 on 01/05/24 Per Obesity protocol Class 3 severe obesity due t o [...] as of this encounter (statuses as of 03/14/2024) Immunizations Name Administration Dates Next Due Covid-19 Ad26, Single Dose (Bennie/J&J) 021,10/12/2020 Pneumococcal Conjugate Vacci ne, 20-valent ([id number]) 04/29/2022 Seasonal Influenza, PF, 6 M & above, IM , (FluLaval or Fluzone) 07/12/2019,07/07/2017 Seasonal Influenza, Quadriva lent Hd (Fluzone Hd) 06/12/2022 Seasonal Influenza, Quadriva lent, No Preserve, IM 07/01/2020,10/22/2019,06/16/2016 Seasonal Influenza, Split, I IV3, With Preserve, Inj 06/06/2014 TD, Preservative Free 03/25/2022 TDAP (age 10 [...] encounter Miscellaneous Notes * Telephone Encounter - Marah Bazan RPh - 03/14/2024 2:54 PM EDTSigned Prescriptions: Disp Refills Lisinopril 10 MG Oral Tablet (Prinivil) 90 Tab*3 Sig: TAKE 1 TABLET BY MOUTH EVERY MORNINGAuthorizing Provider: OFE SORENSEN User: MARAH BAZAN documented in this encounter Plan of Treatment Upcoming Encounters Date Type Department Care Team (Late st Contact Info) Description 05/03/2024 10:20 AM EDT Office Visit [facility] [address] [place] [phone] Josefina Adams, DO [address] [place] [address] Health Maintenance Due Date Last Done Comments Cologuard 2002 Fecal Occult Blood Test 2002 Sigmoidoscopy 2002 COVID-19 Vaccine ( season) 2023 03/09/2021, 10/12/2020 Depression Monitoring 10/20/2023 10/20/2022 Mammogram 05/20/2024 05/20/2023, 04/29, 04/25/2022, Additional history exists Influenza Vaccine (FLU shot) (Season Ended) 2024 06/12/2022, 07/01/2020, 10/22/2019, Additional history exists GFR 03/02/2025 03/02/2024, 09/30, 10/06/2023, Additional history exists Albumin/Creatinine Ratio 05/15/2025 05/15/2022 DXA Scan 08/12/2026 08/12/2022, 08/12/2022 Diabetes Screening 03/02/2027 03/02/2024, 0 10/27/2023, 10/06/2023, Additional history exists Lipid Panel 05/21/2028 05/21/2023, 02/27, 02/27/2021, Additional history exists DTaP,Tdap,and Td Vaccines (3 - Td or Tdap) 03/25/2032 03/25/2022, 05/06/2013 Colonoscopy 05/09/2032 05/09/2022, 05/09/2022 Colorectal Cancer Screening 05/09/2032 Pneumococcal Vaccine: 65+ Years Completed 04/29/2022 Zoster Vaccines Completed 04/29/2022, 0410/2021, 06/29/2017 GARDASIL-HPV IMMUNIZATION SERIES Aged Out No longer eligible based on patient's age to complete this topic Hepatitis B Aged Out No longer eligi ble based on patient's age to complete this topic MENINGOCOCCAL (MENACTRA/MENVEO) Aged Out No longer eligible based on patient's age to complete this topic documented as of this encounter Medical Devices Not on filedocumented as of this encounter Visit Diagnoses Diagnosis HTN, goal below 140/90 Unspecified essential hypertension documented in this encounter Care Teams Vehicle Window Tinter Relationship Specialty Start Date End Date Sunshine Chapa MD [address] [place] [address] PCP - General Family Medicine 10/06/23 documented as of this encounter
--- OUTSIDE RECORDS SUMMARY | 2024-03-29 07:02 | External Medical Summary | Summary of Care ---
Author Name Unknown Organization [facility] Address [address] [place] [address] Phone [phone] Care Team Providers Care Sword Swallower Name Role Phone Sunshine Chapa MD Primary Care Provid er Reason for Visit * Reason Comments Follow Up 4-6 month return Has been falling a lot, fell Thursday and is having pain with breathing and is located on the R side under her breastHas had 3 falls this month, will get light headed and fall She will still have issues with swallowing Encounter Details Date Type Department Care Team (Late st Contact Info) Description 02/26/2024 11:00 AM EDT Office Visit [facility] [address] [place] [address] Sunshine Chapa MD [address] [place] [address] Physical deconditioning*; Personal history of fall; At risk for falls Allergies Active Allergy Reactions Criticality Noted Date Comments Codeine Nausea/vomiting 06/06/2014 Oxycodone Base Nausea/vomiting 11/24/2013 Propoxyphene Napsylate 04/01/2001 documented as of this encounter (statuses as of 02/26/2024) Medications Medication Sig Dispensed Refills Start Date End Date Status Amitriptyline HCl 25 MG Oral Tablet (Elavil) Take 1 Tablet by mouth in the morning. 05/28/2020 Active Gabapentin 600 MG Oral Tablet (Neurontin) 06/07/2022 Active LORazepam 1 MG Oral Tablet 10/22/2021 Active Azelastine HCl 0.1 % Nasal Solution (Astelin)Indication s:Nasal congestion Administer 1 Critz into nostril in the morning and 1 Critz before bedtime. 30 mL 12 11/25/2022 Active [...] Tablet Extended Release 24 Hour (toPROL XL) 12/02/2023 Active traMADol HCl 50 MG Oral Tablet (Ultram) 10/30/2023 Active documented as of this encounter (statuses as of 02/26/2024) Active Problems Problem Noted Date Diagnosed Date [...] as of this encounter (statuses as of 02/26/2024) Resolved Problems Problem Noted Date Diagnosed Date [...] as of this encounter (statuses as of 02/26/2024) Immunizations Name Administration Dates Next Due Covid-19 Ad26, Single Dose (Bennie/J&J) 021,10/12/2020 Pneumococcal Conjugate Vacci ne, 20-valent ([id number]) 04/29/2022 Seasonal Influenza, PF, 6 M & [...] 0 06/02/2009 - 06/02/2013 Smokeless Tobacco: Never Tobacco Cessation:Counseling Given: Not Answered Alcohol Use Standard Drinks/Week Comments Not Currently [...] on file documented as of this encounter Last Filed Vital Signs Vital Sign Reading Time Taken Comments Blood Pressure 122/56 02/26/2024 11:14 AM EDT Pulse 75 02/26/2024 11:14 AM EDT Temperature 36.4 C (97.5 F) 02/26/2024 1 1:14 AM EDT Respiratory Rate 18 02/26/2024 11:1 4 AM EDT Oxygen Saturation 98% 02/26/2024 11: 14 AM EDT Inhaled Oxygen Concentration - - Weight 84.7 kg (186 lb 11.2 oz) 024 11:14 AM EDT Height 153.7 cm (5' 0.5") 02/26/2024 11 :14 AM EDT Body Mass Index 35.86 02/26/2024 11:14 AM EDT documented in this encounter Progress Notes * Sunshine Chapa MD - 02/26/2024 11:40 AM EDT ASSESSMENT / PLAN: Sumi Najera is a 69 year old female with PMHx History of VTE x 2 (both provoked, hypercoag work up was negative) / prediabetes / HTN / DLD / psoriasis / PAM / MDD / DIPAK on cpap - here for acute Physical deconditioning (Primary) Personal history of fall At risk for falls Describing Mechanical falls - Poor balance noted when asked to stand on single leg. reviewed physical conditioning - she declines PT at this time - understands the risks If needed, prefers contact by: Ok to leave message on phone: SUBJECTIVE: Nursing Notes: Collette Don LPN 02/26/24 1122 Signed The patient has been properly identified by confirmation of name and date of . Chief Complaint Patient presents with Follow Up 4-6 month return Has been falling a lot, fell Thursday and is having pain with breathing and is located on the R side under her breast Has had 3 falls this month, will get light headed and fall She will still have issues with swallowing HPI: Sumi Najera is a 69 year old female. Here for recheck. She'll bend over to put a bed frame together and fell over Denies loss of consciousness 3 x in last 2 months No ZHANG Sometimes will have lightheadedness with it - she was walking down the steps and felt lightheaded, no room spinning, but grabbed hold of the rail and didn't fall Did fall Thursday (1 week ago) - was bending from standing - lost balance - fell and hit chest on carpeted floor - didn't hit head No bleeding or bruising Tylenol helps Reviewed sources 1- Latest Reference Range & Units 10/27/23 12:27 Sodium 135 - 146 mmol/L 137 Potassium 3.5 - 5.1 mmol/L 4.9 Chloride 98 - 107 mmol/L 102 CO2 22 - 32 mmol/L 25 BUN 6 - 20 mg/dL 10 Creatinine 0.5 - 1.0 mg/dL 0.7 Estimated Glomerular Filtration Rate >=60 mL/min >90 Anion Gap 7 - 15 mmol/L 10 Glucose 70 - 120 mg/dL 84 Calcium 8.4 - 10.2 mg/dL 9.7 Protein 6.0 - 8.3 g/dL 6.7 TSH 0.27 - 4.20 uIU/mL 1.04 TSH WITH FREE T4 IF INDICATED Rpt CBC Rpt ! WBC 4.00 - 10.80 K/uL 6.86 RBC 3.85 - 5.15 M/uL 3.90 HGB 12.0 - 15.3 g/dL 11.7 (L) HCT 36.0 - 45.2 % 37.1 MCV 81.5 - 97.5 fL 95.1 MCH 27.0 - 34.0 pg 30.0 MCHC 32.0 - 36.0 g/dL 31.5 RDW 11.5 - 15.5 % 14.3 PLT 140 - 400 K/uL 406 (H) MPV 6.6 - 11.1 fL 10.9 Albumin 3.8 - 5.0 g/dL 4.5 AST 10 - 35 U/L 19 ALT 10 - 35 U/L 27 Alkaline Phosphatase 35 - 130 U/L 104 Bilirubin, Total <=1.2 mg/dL 0.5 !: Data is abnormal (L): Data is abnormally low (H): Data is abnormally high Rpt: View report in Results Review for more information Patient Active Problem List Diagnosis Anxiety state Lumbosacral spondylosis Spinal stenosis of lumbar region without neurogenic claudication H/O: hysterectomy HTN, goal below 140/90 History of pulmonary embolism Hyperlipidemia Recurrent major depressive disorder (HCC) Intertrigo Morbid obesity due to excess calories (HCC) Psoriasis palmaris At risk for falls Personal history of fall Physical deconditioning Current Outpatient Medications Medication Sig Dispense Refill Amitriptyline HCl 25 MG Oral Tablet (Elavil) Take 1 Tablet by mouth in the morning. Gabapentin 600 MG Oral Tablet (Neurontin) LORazepam 1 MG Oral Tablet Azelastine HCl 0.1 % Nasal Solution (Astelin) Administer 1 Critz into nostril in the morning and 1 Critz before bedtime. 30 mL 12 Betamethasone Dipropionate 0.05 % External Ointment Apply to hands twice daily 50 g 1 Lisinopril 10 MG Oral Tablet (Prinivil) Take 1 Tablet by mouth in the morning. 90 Tablet 3 Citalopram Hydrobromide 20 MG Oral Tablet (CeleXA) Take 1 Tablet by mouth in the morning. In the morning.. 90 Tablet 1 Meclizine HCl 25 MG Oral Tablet (Antivert) Take 1 Tablet by mouth 3 times a day as needed for Dizziness. 30 Tablet 1 Clotrimazole-Betameth & Zn Ox 1-0.05 & 20 % External Therapy Pack Apply thin film to affected areas, twice a day for 2 weeks. Apply to area under abdominal area. 135 g 1 Clotrimazole 1 % External Cream (Lotrimin) Coadminister cream with triamcinolone cream. Apply to rash on lower abdomen area. 15 g 1 Triamcinolone Acetonide 0.1 % External Cream (Aristocort) Apply topically to affected area 2 times a day. Coadminister cream with clotrimazole cream. To affected area. 80 g 5 Ondansetron HCl 4 MG Oral Tablet 1 Tablet. buPROPion HCl ER (SR) 150 MG Oral Tablet Extended Release 12 Hour (Wellbutrin SR) Take 1 tab by mouth once a day for 1 week then take 1 tab twice a day (morning & late afternoon) 60 Tablet 4 Atorvastatin Calcium 20 MG Oral Tablet (Lipitor) TAKE 1 TABLET BY MOUTH ONCE DAILY FOR CHOLESTEROL 90 Tablet 3 Metoprolol Succinate ER 25 MG Oral Tablet Extended Release 24 Hour (toPROL XL) (Patient not taking:Reported on 02/26/2024) traMADol HCl 50 MG Oral Tablet (Ultram) (Patient not taking: Reported on 02/26/2024) No current facility-administered medications for this visit. OBJECTIVE: BP 122/56 | Pulse 75 | Temp 36.4 C (97.5 F) | Resp 18 | Ht 1.537 m (5' 0.5") | Wt 84.7 kg (186 lb 11.2 oz) | SpO2 98% | BMI 35.86 kg/m | BSA 1.9 m Vitals reviewed and is normotensive / afebrile / and not tachycardic General: No acute distress. Neuro: Alert Pleasant & interactive. Poor balance noted when asked to stand on single leg. Respiratory: Good inspiratory effort, no labored breathing. Abd: point tenderness in R lower rib area, no bruising or fluctuance HEENT: Conjunctivae appear clear. No swelling noted face or lips. Skin: No rash visible on exposed skin areas, normal coloration & appears dry. Psych: Normal affect. Fluent speech. I spent a total of 20-29 minutes (exact time 20 mins) on the date of service in preparation, delivery, and documentation of the care provided to Sumi Najera excluding any time spent in the performance of separately billed services. Sunshine Chapa MD [address] [phone] There are no Patient Instructions on file for this visit. documented in this encounter Nursing Notes * Collette Don LPN - 02/26/2024 11:22 AM EDT The patient has been properly identified by confirmation of name and date of . Chief Complaint Patient presents with Follow Up 4-6 month return Has been falling a lot, fell Thursday and is having pain with breathing and is located on the R side under her breast Has had 3 falls this month, will get light headed and fall She will still have issues with swallowing documented in this encounter Plan of Treatment Upcoming Encounters Date Type Department Care Team (Late st Contact Info) Description 03/02/2024 2:00 PM EDT Office Visit Nutrition & Weight Management, [facility] [address] [id number] Ekaterina Shearer PA-C [address] [place] [address] 05/03/2024 10:20 AM EDT Office Visit Sleep Disorders Ctr [facility] [address] [place] [address] Josefina Adams, [address] [place] [address] Health Maintenance Due Date Last Done Comments [...] Years Completed 04/29/2022 Zoster Vaccines Completed 04/29/2022, 04/0 10/2021, 06/29/2017 GARDASIL-HPV IMMUNIZATION SERIES Aged Out [...] as of this encounter Visit Diagnoses Diagnosis Physical deconditioning- Primary Debility, unspecified Personal history of fall At risk for falls Personal history of fall documented in this encounter Care Teams Sword Swallower Relationship Specialty Start Date End Date Sunshine Chapa MD [address] [place] [address] PCP - General Family Medicine 10/06/23 documented as of this encounter
--- OUTSIDE RECORDS SUMMARY | 2024-03-29 07:02 | External Medical Summary ---
Author Name Unknown Address Unknown Organization : Laboratory Report Ordering Provider Test Date Status MEIR ALDRICH 03/02/2024 14:30:09 Final Observation Date Value Abnormality Reference (Units ) Status Thiamine [Moles/volume] in Blood 03/02/2024 14:30:09 114 78-185 (nmol/L) Final Vitamin supplementation with in 24 hours prior to
blood draw may affect the accuracy of the results.
This test was developed and its analytical performance
characteristics have been determined by [facility]
[facility] [place], [place]. It has
not been cleared or approved by the U.S. Food and Drug
Administration. This assay has been validated pursuant
to the CLIA regulations and is used for clinical
purposes.

Test Performed at:
[facility]
[address] [facility] [address]
[place] [address]
Donald Ernst M.D., Ph.D.,Director of Laboratories Performing Location
--- OUTSIDE RECORDS SUMMARY | 2024-03-29 07:02 | External Medical Summary ---
Author Name Unknown Address Unknown Organization [id number]:LABORATORY [facility] [place] [address] [place] [address] Laboratory Report Ordering Provider Test Date Status MEIR ALDRICH 03/02/2024 14:30:09 Final Observation Date Value Abnormality Reference (Units ) Status Ferritin 03/02/2024 14:30:09 255 Above high normal 13 -150 (ng/mL) Final Postmenopausal women have hi gher ferritin levels than pre-menopausal women. The above reference interval is based on pre-menopausal women. Performing Location LABORATORY C - [address] [place] [address]
--- OUTSIDE RECORDS SUMMARY | 2024-03-29 07:02 | External Medical Summary ---
Author Name Unknown Address Unknown Organization [id number][facility] [address] [place] [address] Laboratory Report Ordering Provider Test Date Status MEIR ALDRICH 03/02/2024 14:30:09 Final Observation Date Value Abnormality Reference (Units ) Status WBC, Total 03/02/2024 14:30:09 6.08 4.00-10.8 0 (K/uL) Final RBC 03/02/2024 14:30:09 3.96 3.85-5.15 (M/uL) Final Hemoglobin 03/02/2024 14:30:09 12.1 12.0-15.3 (g/dL) Final HCT 03/02/2024 14:30:09 36.5 36.0-45.2 (%) Final MCV 03/02/2024 14:30:09 92.2 81.5-97.5 (fL) Final MCH 03/02/2024 14:30:09 30.6 27.0-34.0 (pg) Final MCHC 03/02/2024 14:30:09 33.2 32.0-36.0 (g/dL) Final RDW 03/02/2024 14:30:09 13.5 11.5-15.5 (%) Final Platelets 03/02/2024 14:30:09 391 140-400 (K /uL) Final MPV 03/02/2024 14:30:09 10.0 6.6-11.1 ( fL) Final Performing Location LABORATORY [facility] 0 - [address] [place] [address]
--- OUTSIDE RECORDS SUMMARY | 2024-03-29 07:02 | External Medical Summary ---
Author Name Unknown Address Unknown Organization [id number]:LABORATORY [facility] [place] - [address] [place] [address] Laboratory Report Ordering Provider Test Date Status MEIR ALDRICH 03/02/2024 14:30:09 Final Observation Date Value Abnormality Reference (Units ) Status Folic Acid 03/02/2024 14:30:09 9.3 >4.5 (ng/ mL) Final Performing Location LABORATORY [facility] - [address] [place] [address]
--- OUTSIDE RECORDS SUMMARY | 2024-03-29 07:02 | External Medical Summary | Summary of Care ---
Author Name Unknown Organization [facility] Address [address] [place] [address] Phone [phone] Care Team Providers Care Methods And Procedures Analyst Name Role Phone Sunshine Chapa MD Primary Care Provid er Reason for Visit * Reason Onset Date Comments Advice 01/13/2024 Encounter Details Date Type Department Care Team (Late st Contact Info) Description 01/13/2024 Telephone [facility] [address] [facility] [place] [address] Sunshine Chapa MD [address] [place] [address] Advice Allergies Active Allergy Reactions Criticality Noted Date Comments Codeine Nausea/vomiting 06/06/2014 Oxycodone Base Nausea/vomiting 11/24/2013 Propoxyphene Napsylate 04/01/2001 documented as of this encounter (statuses as of 01/13/2024) Medications Medication Sig Dispensed Refills Start Date End Date Status Amitriptyline HCl 25 MG Oral Tablet (Elavil) Take 1 Tablet by mouth in the morning. 0 05/28/2020 Active Gabapentin 600 MG Oral Tablet (Neurontin) 0 06/07/2022 Active LORazepam 1 MG Oral Tablet 0 10/22/2021 Active Azelastine HCl 0.1 % Nasal Solution (Astelin)Indication s:Nasal congestion Administer 1 [place] into nostril in the morning and 1 B[place] before bedtime. 30 mL 12 11/25/2022 Active [...] as of this encounter (statuses as of 01/13/2024) Active Problems Problem Noted Date Diagnosed Date [...] as of this encounter (statuses as of 01/13/2024) Resolved Problems Problem Noted Date Diagnosed Date [...] as of this encounter (statuses as of 01/13/2024) Immunizations Name Administration Dates Next Due Covid-19 Ad26, Single Dose (Bennie/J&J) 021,10/12/2020 Pneumococcal Conjugate Vacci ne, 20-valent ([id number]) 04/29/2022 Seasonal Influenza, PF, 6 M & [...] encounter Miscellaneous Notes * Telephone Encounter - Sunshine Chapa MD - 01/13/2024 2:16 PM EDT Please help her find appt with any provider available, any office ([facility] / [facility] too). * Telephone Encounter - Tawana Valerio [...] Description 02/12/2024 9:00 AM EDT Office Visit [facility] [address] [place] [address] Sunshine Chapa MD [address] [place] [address] 03/02/2024 2:00 PM EDT Office Visit Nutrition & Weight Management, [facility] [address] [address] Ekaterina Shearer PA-C [address] [place] [address] 05/03/2024 10:20 AM EDT Office Visit Sleep Disorders Ctr [facility] [address] [phone] Josefina Adams DO [address] [address] Health Maintenance Due Date Last Done Comments Ashley 2002 Fecal Occult Blood Test 2002 Sigmoidoscopy [...] Years Completed 04/29/2022 Zoster Vaccines Completed 04/29/2022, 10/2021, 06/29/2017 GARDASIL-HPV IMMUNIZATION SERIES Aged Out [...] filedocumented as of this encounter Care Teams Methods And Procedures Analyst Relationship Specialty Start Date End Date Sunshine Chapa MD [address] [place] [address] PCP - General Family Medicine 1/9/24 documented as of this encounter
--- OUTSIDE RECORDS SUMMARY | 2024-03-29 07:02 | External Medical Summary ---
Author Name Unknown Address Unknown Organization K01:LABORATORY [facility] [place] - [address] [place] [address] Laboratory Report Ordering Provider Test Date Status ELINORCHRISTINESAIRA 03/02/2024 14:30:09 Final Deficient: <20 ng/mL
Ins ufficient: 20-29 ng/mL
Recommended/Optimum:30-50 ng/mL

Vitamin D intoxication is rare. If suspicious of Vitamin D toxicity, evaluation of serum Calcium and PTH is recommended. Observation Date Value Abnormality Reference (Units ) Status 25-OH Vitamin D total 03/02/2024 14:30:09 18 Below low normal >19 (ng/mL) Final Performing Location LABORATORY [facility] [place] - [address] [place] [address]
--- OUTSIDE RECORDS SUMMARY | 2024-03-29 07:02 | External Medical Summary ---
Author Name Unknown Address Unknown Organization K01:LABORATORY [facility] [place] - [address] [place] [address] Laboratory Report Ordering Provider Test Date Status KARLY [place] 03/02/2024 14:30:09 Final Observation Date Value Abnormality Reference (Units ) Status MYCODE SPECIMEN-SST 03/02/2024 14:30:09 Freezing of extracted DNA, whole blood and/or serum. Final Performing Location LABORATORY [facility] - [address] [place] [address]
--- OUTSIDE RECORDS SUMMARY | 2024-03-29 07:02 | External Medical Summary ---
Author Name Unknown Address Unknown Organization K0G:LABORATORY [facility] - [address] [place] [address] Laboratory Report Ordering Provider Test Date Status MEIR ALDRICH 03/02/2024 14:30:09 Final Observation Date Value Abnormality Reference (Units ) Status SYNC LEUKOCYTES IN BLOOD BY AUTOMATED COUNT 03/02/2024 14:30:09 6.08 4.00-10.80 (K/uL) Final Segs 03/02/2024 14:30:09 52.2 40.0-75.0 (%) Final Lymphs % 03/02/2024 14:30:09 30.3 18.0-42.0 (%) Final Monos 03/02/2024 14:30:09 11.7 Above high normal 1.0-11.0 (%) Final Eosinophils 03/02/2024 14:30:09 5.1 0.0-6.0 (%) Final Basos 03/02/2024 14:30:09 0.7 0.0-2.0 (%) Final Absolute Segs 03/02/2024 14:30:09 3.18 1.80-7.70 (K/uL) Final Lymphs, absolute 03/02/2024 14:30:09 1.84 1.00-4.80 (K/ul) Final Monos, Abs 03/02/2024 14:30:09 0.71 0.00-1.10 (K/uL) Final Eos, Abs 03/02/2024 14:30:09 0.31 0.00-0.70 (K/uL) Final Basos, Abs 03/02/2024 14:30:09 0.04 0.00-0.20 (K/uL) Final Performing [facility] [address] [place] [address]
--- OUTSIDE RECORDS SUMMARY | 2024-03-29 07:02 | External Medical Summary | Summary of Care ---
Author Name Unknown Organization [facility] Address [address] [place] [address] Phone [phone] Care Team Providers Care Safety Equipment Tester Name Role Phone Sunshine Chapa MD Primary Care Provid er Reason for Visit * Reason Comments Outpatient Testing Encounter Details Date Type Department Care Team (Late st Contact Info) Description 03/02/2024 2:50 PM EDT Laboratory Laboratory, [facility] [address] [place] [address] [facility] [address] [place] [address] [employer] Other*[id number]; Morbid obesity due to excess calories (HCC); Fall, subsequent encounter Allergies Active Allergy Reactions Criticality Noted Date Comments Codeine Nausea/vomiting 06/06/2014 Naltrexone Itching Medium 03/02/2024 Oxycodone Base Nausea/vomiting 11/24/2013 Propoxyphene Napsylate 04/01/2001 documented as of this encounter (statuses as of 03/02/2024) Medications Medication Sig Dispensed Refills Start Date End Date Status Amitriptyline HCl 25 MG Oral Tablet (Elavil) Take 1 Tablet by mouth in the morning. 05/28/2020 Active Gabapentin 600 MG Oral Tablet (Neurontin) 06/07/2022 Active LORazepam 1 MG Oral Tablet 10/22/2021 Active Azelastine HCl 0.1 % Nasal Solution (Astelin)Indications :Nasal congestion Administer 1 [place] into nostril in the morning and 1 [place] before bedtime. 30 mL 12 11/25/2022 Active Lisinopril 10 MG Oral Tablet (Prinivil)Indication s:HTN, goal below 140/90 Take 1 Tablet by mouth in the morning. 90 Tablet 3 02/24/2023 Active Citalopram Hydrobromide 20 MG Oral Tablet (CeleXA)Indications: Depression with anxiety Take 1 Tablet by mouth in the morning. In the morning.. 90 Tablet 1 07/06/2023 Active Atorvastatin Calcium 20 MG Oral Tablet (Lipitor)Indications :Dyslipidemia, goal LDL below 70 TAKE 1 TABLET [...] late afternoon) 60 Tablet 4 10/29/2023 Active documented as of this encounter (statuses as of 03/02/2024) Active Problems Problem Noted Date Diagnosed Date [...] as of this encounter (statuses as of 03/02/2024) Resolved Problems Problem Noted Date Diagnosed Date [...] as of this encounter (statuses as of 03/02/2024) Immunizations Name Administration Dates Next Due Covid-19 Ad26, Single Dose (Bennie/J&J) 021,10/12/2020 Pneumococcal Conjugate Vacci ne, 20-valent ([id number]) 04/29/2022 Seasonal Influenza, PF, 6 M & [...] on file documented as of this encounter Plan of Treatment Upcoming Encounters Date Type Department Care Team (Late st Contact Info) Description 05/03/2024 10:20 AM EDT [facility] [address] [facility] [place] [phone] Josefina Adams DO [address] [place] [address] Pending Results Name Type Priority Associated Diagnoses Date /Time MYCODE SUBSEQUENT ADULT Lab Routine MyCode Research Other*[id number] 03/02/2024 2:30 PM EDT VITAMIN B12 Lab Routine Morbid obesity due to excess calories (HCC) Fall, subsequent encounter 03/02/2024 2:30 PM EDT CBC WITH WBC DIFFERENTIAL Lab Routine Morbid obesity due to excess calories (HCC) Fall, subsequent encounter 03/02/2024 2:30 PM EDT FERRITIN Lab Routine Morbid obesity due to excess calories (HCC) Fall, subsequent encounter 03/02/2024 2:30 PM EDT IRON SCREEN, INCLUDING TIBC Lab Routine Morbid obesity due to excess calories (HCC) Fall, subsequent encounter 03/02/2024 2:30 PM EDT FOLIC ACID Lab Routine Morbid obesity due to excess calories (HCC) Fall, subsequent encounter 03/02/2024 2:30 PM EDT COMPREHENSIVE METABOLIC PANEL Lab Routine Morbid obesity due to excess calories (HCC) Fall, subsequent encounter 03/02/2024 2:30 PM EDT VITAMIN B1 (THIAMINE), BLOOD, LC/MS/MS Lab Routine Morbid obesity due to excess calories (HCC) Fall, subsequent encounter 03/02/2024 2:30 PM EDT 25-HYDROXY VITAMIN D Lab Routine Morbid obesity due to excess calories (HCC) Fall, subsequent encounter 03/02/2024 2:30 PM EDT MYCODE SST1 Lab Routine MyCode Research Other*[id number] 03/02/2024 2:30 PM EDT MYCODE SST2 Lab Routine MyCode Research Other*[id number] 03/02/2024 2:30 PM EDT CBC Lab Routine Morbid obesity due to excess calories (HCC) Fall, subsequent encounter 03/02/2024 2:30 PM EDT DIFFERENTIAL, AUTOMATED Lab Routine Morbid obesity due to excess calories (HCC) Fall, subsequent encounter 03/02/2024 2:30 PM EDT Health Maintenance Due Date Last Done Comments [...] Years Completed 04/29/2022 Zoster Vaccines Completed 04/29/2022, 0 10/2021, 06/29/2017 GARDASIL-HPV IMMUNIZATION SERIES Aged Out [...] as of this encounter Visit Diagnoses Diagnosis MyCode Research Other*[id number] Morbid obesity due to excess calories (HCC) Fall, subsequent encounter documented in this encounter Care Teams Safety Equipment Tester Relationship Specialty Start Date End Date Sunshine Chapa MD [address] [place] [address] PCP - General Family Medicine 10/06/23 documented as of this encounter
--- OUTSIDE RECORDS SUMMARY | 2024-03-29 07:02 | External Medical Summary ---
Author Name Unknown Address Unknown Organization [id number]:LABORATORY [facility] [place] - [address] [place] [address] Laboratory Report Ordering Provider Test Date Status MEIR ALDRICH 03/02/2024 14:30:09 Final Observation Date Value Abnormality Reference (Units ) Status Iron 03/02/2024 14:30:09 91 33-151 (ug /dL) Final Iron-binding capacity 03/02/2024 14:30:09 290 250-425 (ug/dL) Final Transferrin Sat % 03/02/2024 14:30:09 31 15 -55 (%) Final Performing Location LABORATORY C - [address] [place] [address]
--- OUTSIDE RECORDS SUMMARY | 2024-03-29 07:02 | External Medical Summary ---
Author Name Unknown Address Unknown Organization [id number]:LABORATORY [facility] [address] - [address] [place] [address] Laboratory Report Ordering Provider Test Date Status MEIR ALDRICH 03/02/2024 14:30:09 Final Observation Date Value Abnormality Reference (Units ) Status BUN 03/02/2024 14:30:09 10 6-20 (mg/dL) Final Creatinine 03/02/2024 14:30:09 0.6 0.5-1.0 (mg/dL) Final Glomerular filtration rate/1.73 sq M.predicted [Volume Rate/Area] in Serum, Plasma or Blood by Creatinine-based formula (CKD-EPI) 03/02/2024 14:30:09 >90 >=60 (mL/min) Final eGFR is calculated based on the CKD-EPI 2020 equation Sodium 03/02/2024 14:30:09 133 Below low normal 135 -146 (mmol/L) Final Potassium 03/02/2024 14:30:09 4.6 3.5-5.1 (m mol/L) Final Cl 03/02/2024 14:30:09 97 Below low normal 98- 107 (mmol/L) Final CO2 03/02/2024 14:30:09 28 22-32 (mmo l/L) Final Anion gap 03/02/2024 14:30:09 8 7-15 (mmol /L) Final Glucose 03/02/2024 14:30:09 83 70-120 (mg /dL) Final Albumin 03/02/2024 14:30:09 4.5 3.8-5.0 (g /dL) Final AST (Aspartate aminotransferase) 03/02/2024 14:30:09 18 10-35 (U/L) Fin al Alk Phos 03/02/2024 14:30:09 103 35-130 (U/ L) Final Bilirubin, Total 03/02/2024 14:30:09 0.4 <=1 .2 (mg/dL) Final Calcium 03/02/2024 14:30:09 9.8 8.4-10.2 ( mg/dL) Final Protein 03/02/2024 14:30:09 6.8 6.0-8.3 (g /dL) Final ALT (Alanine aminotransferase) 03/02/2024 14:30:09 15 10-35 (U/L) Saad beltrán Performing Location LABORATORY [facility] [address] - [address] [place] [address]
--- OUTSIDE RECORDS SUMMARY | 2024-03-29 07:02 | External Medical Summary | Summary of Care ---
Author Name Unknown Organization [facility] Address [address] [facility] [address] Phone [phone] Care Team Providers Care Supervisor Wound Name Role Phone Sunshine Chapa MD Primary Care Provid er Reason for Visit * Reason Comments Weight Management The pt stated she is here to follow up regarding her Wellbutrin Encounter Details Date Type Department Care Team (Late st Contact Info) Description 03/02/2024 2:00 PM EDT Office Visit Nutrition & Weight Management, [facility] [address] [place] [id number] Ekaterina Shearer PA-C [address] [place] [address] Morbid obesity due to excess calories (HCC)*; Fall, subsequent encounter Allergies Active Allergy Reactions Criticality Noted Date Comments Codeine Nausea/vomiting 06/06/2014 Naltrexone Itching Medium 03/02/2024 Oxycodone Base Nausea/vomiting 11/24/2013 Propoxyphene Napsylate 04/01/2001 documented as of this encounter (statuses as of 03/02/2024) Medications Medication Sig Dispensed Refills Start Date End Date Status Amitriptyline HCl 25 MG Oral Tablet (Elavil) Take 1 Tablet by mouth in the morning. 0 Active Gabapentin 600 MG Oral Tablet (Neurontin) 2 Active LORazepam 1 MG Oral Tablet 2 Active Azelastine HCl 0.1 % Nasal Solution (Astelin)Indicati ons:Nasal congestion Administer 1 Muncy into nostril in the morning and 1 Muncy before bedtime. 30 mL 12 3 Active Lisinopril 10 MG Oral Tablet (Prinivil)Indicat ions:HTN, goal below 140/90 Take 1 Tablet by mouth in the morning. 90 Tablet 3 3 Active Citalopram Hydrobromide 20 MG Oral Tablet (CeleXA)Indicatio ns:Depression with anxiety Take 1 Tablet by mouth in the morning. In the morning.. 90 Tablet 1 3 Active Atorvastatin Calcium 20 MG Oral Tablet (Lipitor)Indicati ons:Dyslipidemia, goal LDL below 70 TAKE 1 TABLET BY MOUTH ONCE DAILY FOR CHOLESTEROL 90 Tablet 3 3 Active Meclizine HCl 25 MG Oral Tablet (Antivert) Take 1 Tablet by mouth 3 times a day as needed for Dizziness. 30 Tablet 1 4 Active Ondansetron HCl 4 MG Oral Tablet 1 Tablet. 3 Active buPROPion HCl ER (SR) 150 MG Oral Tablet Extended Release 12 Hour (Wellbutrin SR) Take 1 tab by mouth once a day for 1 week then take 1 tab twice a day (morning & late afternoon) 60 Tablet 4 4 Active Betamethasone Dipropionate 0.05 % External OintmentIndicatio ns:Irritant contact dermatitis due to other chemical products Apply to hands twice daily 50 g 1 3 03/02/20 24 Discontinued Clotrimazole-Beta meth & Zn Ox 1-0.05 & 20 % External Therapy PackIndications:I ntertrigo Apply thin film to affected areas, twice a day for 2 weeks. Apply to area under abdominal area. 135 g 1 4 03/02/20 24 Discontinued Clotrimazole 1 % External Cream (Lotrimin)Indicat ions:Intertrigo Coadminister cream with triamcinolone cream. Apply to rash on lower abdomen area. 15 g 1 4 03/02/20 24 Discontinued Triamcinolone Acetonide 0.1 % External Cream (Aristocort)Indic ations:Intertrigo Apply topically to affected area 2 times a day. Coadminister cream with clotrimazole cream. To affected area. 80 g 5 4 03/02/20 24 Discontinued Metoprolol Succinate ER 25 MG Oral Tablet Extended Release 24 Hour (toPROL XL) 4 03/02/20 24 Discontinued traMADol HCl 50 MG Oral Tablet (Ultram) 4 03/02/20 24 Discontinued documented as of this encounter (statuses [...] (Bennie/J&J) 021,10/12/2020 Pneumococcal Conjugate Vacci ne, 20-valent ([id number]) 04/29/2022 Seasonal Influenza, PF, 6 M & [...] Sign Reading Time Taken Comments Blood Pressure 112/72 03/02/2024 1:48 PM EDT Pulse 73 03/02/2024 1:48 PM EDT Temperature 36.4 C (97.5 F) 03/02/2024 1:48 PM ED T Respiratory Rate - - Oxygen Saturation 98% 03/02/2024 1:48 PM EDT Inhaled Oxygen Concentration - - Weight 84.3 kg (185 lb 12.8 oz) 03/02/2024 1:48 PM EDT Height - - Body Mass Index 35.69 02/26/2024 11:14 AM EDT documented in this encounter Progress Notes * Ekaterina Shearer PA-C - 03/02/2024 1:55 PM EDT Comprehensive Weight Management Clinic Note Nursing Notes: César Elise LPN 03/02/24 1350 Signed Chief Complaint Patient presents with Weight Management The pt stated she is here to follow up regarding her Wellbutrin Sumi Najera presents in follow up to the comprehensive weight management clinic. The patient is a69 year old female Wt Readings from Last 6 Encounters: 03/02/24 84.3 kg (185 lb 12.8 oz) 02/26/24 84.7 kg (186 lb 11.2 oz) 01/05/24 84.6 kg (186 lb 9.6 oz) 11/03/23 88.9 kg (196 lb) 10/29/23 87.6 kg (193 lb 3.2 oz) 10/27/23 88 kg (194 lb) Patient is receiving ongoing education regarding dietary and physical modifications for weight loss. - Initial clinic visit 04/22/23. Weight at that time was 244 lbs - Today's weight: 185 lbs - Total weight loss of -59 since initial weight in clinic - Patient's weight has -1lbs since last visit on 01/05/24 03/02/24 -on wellbutrin/naltrexone -still doing WW - always has points left over -having falls at home - 3 in the last month - "my brain and legs aren't connected" -no dizziness but not a trip and fall - "my legs just give out" -struggling in the evening 01/05/24 -on wellbutrin/naltrexone -following WW -wants to lose faster - "I should be losing at least 5lbs per week" -down 23.8% BW since starting WW in March 2023 -wants to be 160lbs - "I just felt better" -prescribed tramadol from ortho 10/29/23 -on Ozempic 0.5mg -tolerating well - some constipation -feels like she is hungry -still following WW 08/24/23 -currently doing WW - started in March at 245lbs and down to 200lbs on home scale -on topamax 50mg from PCP for weight 06/13/21 -follow up -7 pounds since last visit 04/22/21 -is on wellbutrin and doing well. -she hoped to be losing more weight---reminded 1-2 pounds per week is perfect! -would like to try adding naltrexone Visit 04/22/21 - Overall goal: less knee pain - Wt hx: has always struggled - Highest wt as adult: 246 in 2019 - Lowest wt as adult: 162 - Wt loss hx: lost about 98 pounds with weight watchers but gained it all back - Current plan: trying to watch what she eats - Barriers: "nightime eater" portion trouble - Eating behaviors: See 24 hour recall below. 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 Musculoskeletal: Positive for arthralgias. Neurological: Positive for weakness. All other systems reviewed and are negative. Current Medications: Current Outpatient Medications Medication Sig Dispense Refill Amitriptyline HCl 25 MG Oral Tablet (Elavil) Take 1 Tablet by mouth in the morning. Gabapentin 600 MG Oral Tablet (Neurontin) LORazepam 1 MG Oral Tablet Azelastine HCl 0.1 % Nasal Solution (Astelin) Administer 1 Muncy into nostril in the morning and 1 Muncy before bedtime. 30 mL 12 Lisinopril 10 MG Oral Tablet (Prinivil) Take 1 Tablet by mouth in the morning. 90 Tablet 3 Citalopram Hydrobromide 20 MG Oral Tablet (CeleXA) Take 1 Tablet by mouth in the morning. In the morning.. 90 Tablet 1 Atorvastatin Calcium 20 MG Oral Tablet (Lipitor) TAKE 1 TABLET BY MOUTH ONCE DAILY FOR CHOLESTEROL 90 Tablet 3 Meclizine HCl 25 MG Oral Tablet (Antivert) Take 1 Tablet by mouth 3 times a day as needed for Dizziness. 30 Tablet 1 Ondansetron HCl 4 MG Oral Tablet 1 Tablet. buPROPion HCl ER (SR) 150 MG Oral Tablet Extended Release 12 Hour (Wellbutrin SR) Take 1 tab by mouth once a day for 1 week then take 1 tab twice a day (morning & late afternoon) 60 Tablet 4 No current facility-administered medications for this visit. Water intake: yes Prescribed diet: [id number] Calorie Controlled Current diet: Breakfast-- 2 eggs, toast, banana, coffee Snack-- Lunch-- turkey breast, gravy Snack-- protein bar Dinner-- macaroni salad, grapes Snack-- skips Drinks-- water Meals Away from Home-- rare Food logs: Yes and reviewed with patient today Type of exercise: ADL, doing some weed eating Weight loss Pharmacotherapy: yes Wellbutrin 150 mg mg Twice a day BP 112/72 | Pulse 73 | Temp 36.4 C (97.5 F) | Wt 84.3 kg (185 lb 12.8 oz) | SpO2 98% | BMI 35.69 kg/m | BSA 1.9 m PHYSICAL EXAMINATION: General: Patient awake alert and oriented. Patient is well appearing and in no acute distress. Skin: No rashes. HEENT: Head is atraumatic, normocephalic. EOMs intact Abdomen: Obese Neuro: No focal deficits Psych: Appropriate mood and affect. Assessment and Plan: Abnormal weight gain / Body mass index is 35.69 kg/m. / Morbid obesity : - Would like to proceed with medical management - Barriers are consistency. - Motivators are feeling better overall, avoiding/reducing co-morbid conditions. - The patient was encouraged to to avoid all fruit juices and regular sodas, consume at least 64 ounces of water per day, keep food logs and get weighed on a weekly basis. They were encouraged to increase physical activity as prescribed. - Handouts regarding nutrition and physical activity were provided, as appropriate. 1. Keep a food log. If you bite it, write it! Apps like [employer] or [employer] Calorie goal: 1200 2. Drink 48-64 ounces of non-caloric beverages per day. No fruit juices or regular soda Try crystal light, propel, zero calorie flavored water, plain water 3. Goal of 30 minutes of exercise 5 days per week (150 minutes per week--can be divided up however you would like) Aim for aerobic activity and muscle strengthening activities 4. Increase fruit and vegetable servings to 5-6 per day. 1/2 of your plate should be fruits and vegetables 5. Eat 100-200 calories within 1-2 hours of awakening, and every 4 - 6 hours while awake. (3 meals with snacks in between) Choose 100 calorie or less snacks, protein snacks 7. Weight yourself weekly and follow trend over time (day to day weight fluctuations can be discouraging) 8. Decrease starches like bread, pasta, cereal, potatoes and corn. Aim for of your plate Try substitutions like zoodles, lentil pasta, cauliflower mashed potatoes, whole grain foods, quinoa Limit junk/processed foods Chips, pretzels, cookies, cakes, sweets White bread/rolls/wraps/bagels, white rice 9. Increase protein to feel full longer (1/4 of your plate) Sumi was seen today for weight management. Diagnoses and all orders for this visit: Morbid obesity due to excess calories (HCC) (Primary) - VITAMIN B12; Future; Expected date: 03/02/2024 - CBC WITH WBC DIFFERENTIAL; Future; Expected date: 03/02/2024 - FERRITIN; Future; Expected date: 03/02/2024 - IRON SCREEN, INCLUDING TIBC; Future; Expected date: 03/02/2024 - FOLIC ACID; Future; Expected date: 03/02/2024 - COMPREHENSIVE METABOLIC PANEL; Future; Expected date: 03/02/2024 - VITAMIN B1 (THIAMINE), BLOOD, LC/MS/MS; Future; Expected date: 03/02/2024 - 25-HYDROXY VITAMIN D; Future; Expected date: 03/02/2024 Fall, subsequent encounter - VITAMIN B12; Future; Expected date: 03/02/2024 - CBC WITH WBC DIFFERENTIAL; Future; Expected date: 03/02/2024 - FERRITIN; Future; Expected date: 03/02/2024 - IRON SCREEN, INCLUDING TIBC; Future; Expected date: 03/02/2024 - FOLIC ACID; Future; Expected date: 03/02/2024 - COMPREHENSIVE METABOLIC PANEL; Future; Expected date: 03/02/2024 - VITAMIN B1 (THIAMINE), BLOOD, LC/MS/MS; Future; Expected date: 03/02/2024 - 25-HYDROXY VITAMIN D; Future; Expected date: 03/02/2024 -ok to continue wellbutrin, stop naltrexone -continue with WW - I encouraged her to use all of the points for each day -recommend 0.5-1.0lb per week loss - discussed realistic expectations, fat vs lean mass loss, increased risk for malnutrition -will check labs today given falls -eat when feeling hungry at night -consider topamax again -consider seeing Dr. Flores in the future Abnormal weight gain Prediabetes -would benefit from GLP1 HTN, goal below 140/90 -continue current regimen Hyperlipidemia, unspecified hyperlipidemia type -continue statin The patient agreed to try the plan as discussed and return in 3 months. They were encouraged to call or send a patient portal message in the meantime with any questions or concerns prior to their next clinic visit. I spent a total of 20 minutes on the date of service in preparation, delivery, and documentation ofthe care provided to Sumi Najera excluding any time spent in the performance of separately billedservices. This included but was no limited to providing counseling about the benefits of weight loss, about their nutritional status, detailed explanations about calorie count, types of nutrients to choose, and composition of the meals. Motivational interview provided in order to prepare the patient to achieve future goals. Ekaterina Shearer PA-C documented in this encounter Nursing Notes * César Elise LPN - 03/02/2024 1:48 PM EDT Chief Complaint Patient presents with Weight Management The pt stated she is here to follow up regarding her Wellbutrin documented in this encounter Plan of Treatment Upcoming Encounters Date Type Department Care Team (Late st Contact Info) Description 03/02/2024 2:50 PM EDT Laboratory Laboratory, Constantino Castañeda Sebastian [address] [facility] [place] [phone] Lucila Castañeda [address] [facility] [place] [id number] [employer] Other*[id number]; Morbid obesity due to excess calories (HCC); Fall, subsequent encounter 05/03/2024 10:20 AM EDT Office Visit [facility] Disorders Ctr Teddy Castañeda [place] [address] [facility] [place] [phone] Josefina Adams DO [address] [facility] [place] [id number] Pending Results Name Type Priority Associated Diagnoses Date /Time VITAMIN B12 Lab Routine Morbid obesity due [...] Fall, subsequent encounter 03/02/2024 2:30 PM EDT Scheduled Orders Name Type Priority Associated Diagnoses Orde r Schedule VITAMIN B12 Lab Routine Morbid obesity due to excess calories (HCC) Fall, subsequent encounter Expected: 03/02/2024, Expires: 03/02/2025 CBC WITH WBC DIFFERENTIAL Lab Routine Morbid obesity due to excess calories (HCC) Fall, subsequent encounter Expected: 03/02/2024, Expires: 03/02/2025 FERRITIN Lab Routine Morbid obesity due to excess calories (HCC) Fall, subsequent encounter Expected: 03/02/2024 (Approximate), Expires: 03/02/2025 IRON SCREEN, INCLUDING TIBC Lab Routine Morbid obesity due to excess calories (HCC) Fall, subsequent encounter Expected: 03/02/2024, Expires: 03/02/2025 FOLIC ACID Lab Routine Morbid obesity due to excess calories (HCC) Fall, subsequent encounter Expected: 03/02/2024, Expires: 03/02/2025 COMPREHENSIVE METABOLIC PANEL Lab Routine Morbid obesity due to excess calories (HCC) Fall, subsequent encounter Expected: 03/02/2024 (Approximate), Expires: 03/02/2025 VITAMIN B1 (THIAMINE), BLOOD, LC/MS/MS Lab Routine Morbid obesity due to excess calories (HCC) Fall, subsequent encounter Expected: 03/02/2024 (Approximate), Expires: 03/02/2025 25-HYDROXY VITAMIN D Lab Routine Morbid obesity due to excess calories (HCC) Fall, subsequent encounter Expected: 03/02/2024 (Approximate), Expires: 03/02/2025 Health Maintenance Due Date Last Done Comments [...] as of this encounter Visit Diagnoses Diagnosis Morbid obesity due to excess calories (HCC)- Primary Fall, subsequent encounter [employer] Other*[id number] Morbid obesity due to excess calories (HCC) Fall, subsequent encounter documented in this encounter Care Teams Supervisor Wound Relationship Specialty Start Date End Date Sunshine Chapa MD [address] [place] [address] PCP - General Family Medicine 10/06/23 documented as of this encounter
--- OUTSIDE RECORDS SUMMARY | 2024-03-29 07:02 | External Medical Summary ---
Author Name Unknown Address Unknown Organization K01:LABORATORY [facility] [place] - [address] [place] [address] Laboratory Report Ordering Provider Test Date Status KARLY NORMAN 03/02/2024 14:30:09 Final Observation Date Value Abnormality Reference (Units ) Status MYCODE SPECIMEN-SST 03/02/2024 14:30:09 Freezing of extracted DNA, whole blood and/or serum. Final Performing Location LABORATORY C - [address] [place] [address]
--- OUTSIDE RECORDS SUMMARY | 2024-03-29 07:02 | External Medical Summary | Continuity of Care Document ---
Author Name Unknown Organization [id number] Address [address] [place] [id number] Care Team Providers Care Division Director Name Role Phone Ofe Sorensen Primary Care Physician [phone] Encounter [facility] [id number] Date(s): 01/22/24 - 01/22/[address] [facility] [id number] [facility] [address] [place] [address] Encounter Diagnosis S/P shoulder surgery(Discharge Diagnosis) - 01/22/24 Discharge Disposition: Home or Self Care Attending Physician: MD Rivas Paul K Allergies, Adverse Reactions, Alerts Substance Reaction Severity Status codeine Active Assessment and Plan Extracted from: Title:Scottie Rivas Author:Lesley Muro ate:01/22/24 Impression:[id number] male 1) S/p right shoulder arthroscopy, subacromial bursectomy, major debridement, manipulation under anesthesia, DOS 10/15/2023 2) S/p s/p right shoulder arthroscopy, rotator cuff repair, and chondroplasty, DOS 03/19/23, re-injured Plan: - I have written a work excuse form stating that patient may return to work on 01/27/2024 and may not lift more than 10lbs with her right arm and should not do any prolonged overhead reaching. - Follow-up in 3 months. The patient understood all my instructions and explanation; all their questions were satisfactorily addressed. Medications amitriptyline 25 mg oral tablet Start: 12/12/23 14:32:00 EDT, 1 tab, PO, qhs, Disp# 30 tab, Refills: 5, Pharmacy: [id number] Start Date: 12/12/23 Status: Ordered Ativan 1 mg oral tablet Start: 10/22/21 16:09:00 EST, See Instructions, Disp# 2 tab, 1 tab PO tid, Note to Pharmacy: Take 30 minutes prior to MRI may repeat x1, Pharmacy: [id number] Start Date: 10/22/21 Status: Ordered atorvastatin 20 mg oral tablet Start: 12/26/13 8:11:00, 1 tab, PO, qhs Start Date: 12/26/13 Status: Ordered citalopram 20 mg oral tablet Start: 12/26/13 8:11:00, 1 tab, PO, Daily Start Date: 12/26/13 Status: Ordered diclofenac sodium 75 mg oral delayed release tablet Start: 09/29/23 15:27:00 EST, 1 tab, PO, bid, Disp# 60 tab, Refills: 1, with food, PRN: as needed for pain, Pharmacy: [id number] Start Date: 09/29/23 Stop Date: 11/28/23 Status: Ordered diclofenac sodium 75 mg oral delayed release tablet Start: 08/19/23 12:22:00 EST, 1 tab, PO, bid, Disp# 60 tab, with food, PRN: as needed for pain, Pharmacy: [id number] Start Date: 08/19/23 Stop Date: 09/18/23 Status: Ordered Euflexxa 10 mg/mL intra-articular solution Start: 06/21/21 10:05:00 EDT, 20 mg =, intra-articular, q7days, Disp# 6 mL, 2 mL Euflexxa injectionevery 7 days for 3 weeks, Pharmacy: [id number] Start Date: 06/21/21 Stop Date: 07/12/21 Status: Ordered Euflexxa 10 mg/mL intra-articular solution Start: 10/17/20 13:54:00 EST, 20 mg =, intra-articular, q7days, Disp# 12 mL, Refills: 1, Intra-articular injections; inject 2 mL to each knee weekly for 3 weeks, [id number] Start Date: 10/17/20 Status: Ordered gabapentin 600 mg oral tablet Start: 09/22/23 8:59:00 EST, 1 tab, PO, bid, Disp# 60 tab, Refills: 5, Pharmacy: [id number] Start Date: 09/22/23 Status: Ordered hydrocodone Start: 04/18/13 15:37:00, Refills: 0 Start Date: 04/18/13 Status: Ordered metoprolol succinate 25 mg oral tablet, extended release Start: 12/26/13 8:11:00, 1 tab, PO, Daily Start Date: 12/26/13 Status: Ordered Robaxin 500 mg oral tablet Start: 06/20/22 8:25:00 EDT, 1 tab, PO, q8h, Disp# 90 tab, Refills: 5, Pharmacy: [id number] Start Date: 06/20/22 Stop Date: 12/17/22 Status: Ordered silver sulfADIAZINE 1% topical cream Start: 03/21/22 9:03:00 EDT, 1 appl, topical, bid, Disp# 30 g, Refills: 1, Pharmacy: [id number] Start Date: 03/21/22 Stop Date: 05/20/22 Status: Ordered traMADol 50 mg oral tablet Start: 10/30/23 14:34:00 EST, 2 tab, PO, q4h, Disp# 24 tab, Refills: 0, Pain control Ongoing Tx notto exceed 400 mg/day, PRN: as needed for pain, Pharmacy: [id number] Start Date: 10/30/23 Status: Ordered Zofran 4 mg oral tablet Start: 03/04/23 10:43:00 EDT, 1 tab, PO, q8h, Disp# 12 tab, post op nausea/vomiting, [id number] Start Date: 03/04/23 Status: Ordered Mental Status 01/22/24 Barriers to Learning one year None evide nt Mandatory Health Literacy Documentation Yes Health Literacy Communication Barriers N ever Primary Language Albanian Problem List Condition Confirmation Course Effective Dates Status H ealth Status Informant Right carpal tunnel syndrome Confirmed Active Cervical 1 Confirmed Active Cervical radiculopathy Confirmed Active Disorder of tendon Confirmed Active S/P arthroscopy of right shoulder Confirmed Active History of fusion of cervical spine Confirmed Active Bilateral knee pain Confirmed Active Lateral epicondylitis Confirmed Active Low back pain Confirmed Active Right lumbar radiculopathy Confirmed Active Polyarthralgia Confirmed Active Myofascial pain Confirmed Active Neck pain Confirmed 01/15/10 Active Osteoarthritis of right hip Confirmed Active Arm pain, right Confirmed Active Plantar fasciitis, right Confirmed Active De Quervain's tenosynovitis Confirmed Active Right rotator cuff tear Confirmed Active Left shoulder pain Confirmed Active 1DDD Diagnosis Diagnosis Type Effective Dates Health Status Cl inical Service Informant S/P shoulder surgery Discharge Diagnosis 01/22/24 Procedures Procedure Date Related Diagnosis Body Site Status Total hip replacement 2008 Com pleted Hysterectomy 2001 Completed Carpal tunnel release 1980 Com pleted Fusion 1 1975 Completed Tonsillectomy 1960 Completed 1C5/C6 Social History Social History Type Response Smoking Status Never smoked cigaret willow Sex Female Ortho Outpt Note * Lesley Muro: MODIFY, PERFORM Event Display: Ortho Outpt Note Authored Date: [id number] Primary Care Provider LEXY Sorensen Desiree A Chief Complaint 1) F/us/p right shoulder arthroscopy, subacromial bursectomy, major debridement, manipulation under anesthesia, DOS 10/15/2023 2) F/u s/p s/p right shoulder arthroscopy, rotator cuff repair, and chondroplasty, DOS 03/19/23, re-injured History of Present Illness [id number] I am following for the above- noted procedure. She has a catching sensation when twisting her arm and a catching feeling when her arm is held outward. Her has soreness in her lateral shoulder but is pleased with her ROM. Patient has pain at rest afteractivity. She has not returned to work yet and is not working this summer. Review of Systems Refer to the HPI. Physical Exam Focusing onthe patient'srightupper extremity: ROM: Forward elevation 165, symmetric bilaterally / External rotation 45 on right vs 55 on left, [id number]/ Internal rotation T-12 bilaterally + Mild discomfort with resistedexternal rotationwith arm at the side, 5/5 strength 5/5 Internal rotation strength + Mild discomfort with empty can test +Neers Assessment/Plan Impression:[id number] 1) S/p right shoulder arthroscopy, subacromial bursectomy, major debridement, manipulation under anesthesia, DOS 10/15/2023 2) S/p s/p right shoulder arthroscopy, rotator cuff repair, and chondroplasty, DOS 03/19/23, re-injured Plan: - I have written a work excuse form stating that patient may return to work on 01/27/2024 and may notlift more than 10lbs with her right arm and should not do any prolonged overhead reaching. - Follow-up in 3 months. The patient understood all my instructions and explanation; all their questions were satisfactorilyaddressed. Attestation I, Lesley Muro, have scribed for, and in the presence of, Scottie Rivas, on this date,01/22/2024 09:05:50. Problem List/Past Medical History Ongoing Arm pain, right Bilateral knee pain Cervical Cervical radiculopathy De Quervain's tenosynovitis Disorder of tendon History of fusion of cervical spine Lateral epicondylitis Left shoulder pain Low back pain Myofascial pain Neck pain Osteoarthritis of right hip Plantar fasciitis, right Polyarthralgia Right carpal tunnel syndrome Right lumbar radiculopathy Right rotator cuff tear S/P arthroscopy of right shoulder Procedure/Surgical History Total hip replacement| Service Date: 2007Hysterectomy| Service Date: 2001Carpal tunnel release| Service Date: 1979Fusion| Service Date: 1975Tonsillectomy| Service Date: 1959 Medications amitriptyline(amitriptyline 25 mg oral tablet), 1 tab, PO, qhs atorvastatin(atorvastatin 20 mg oral tablet), 20 mg= 1 tab, PO, qhs citalopram(citalopram 20 mg oral tablet), 20 mg= 1 tab, PO, Daily diclofenac(diclofenac sodium 75 mg oral delayed release tablet), 75 mg= 1 tab, PO, bid, PRN, 1 refills diclofenac(diclofenac sodium 75 mg oral delayed release tablet), 75 mg= 1 tab, PO, bid, PRN gabapentin(gabapentin 600 mg oral tablet), 1 tab, PO, bid hydrocodone LORazepam(Ativan 1 mg oral tablet), See Instructions methocarbamol(Robaxin 500 mg oral tablet), 500 mg= 1 tab, PO, q8h, 5 refills metoprolol(metoprolol succinate 25 mg oral tablet, extended release), 25 mg= 1 tab, PO, Daily ondansetron(Zofran 4 mg oral tablet), 4 mg= 1 tab, PO, q8h silver sulfADIAZINE topical(silver sulfADIAZINE 1% topical cream), 1 appl, topical, bid, 1 refills sodium hyaluronate(Euflexxa 10 mg/mL intra-articular solution), 20 mg, intra- articular, q7days sodium hyaluronate(Euflexxa 10 mg/mL intra-articular solution), 20 mg, intra- articular, q7days, 1 refills traMADol(traMADol 50 mg oral tablet), 100 mg= 2 tab, PO, q4h, PRN Allergies codeine Social History Smoking Status Never smoked cigarettes Alcohol - No Risk Tobacco - No Risk Family History Family history is unknown Recommendations Health Maintenance Pending(in the next year) OverDue Breast Cancer Screening due12/09/21and every 731day Adult Influenza Vaccine due03/27/23and every 1year Due Adult COVID-19 Vaccination due01/22/24Unknown Frequency Adult Social Determinants of Health Screening due01/22/24Unknown Frequency Adult Tdap/Td Vaccine due01/22/24Unknown Frequency Colorectal Cancer Screening due01/22/24Unknown Frequency Hepatitis C Screening due01/22/24One-time only Medicare Annual Wellness Visit due01/22/24and every 1year Osteoporosis Screening due01/22/24One-time only Pneumococcal Vaccine Older Adults due01/22/24One-time only Shingles Vaccine due01/22/24One-time only Due In Future Body Mass Index not due until09/29/24and every Satisfied(in the past 1 year) Satisfied Body Mass Index on09/29/23.Satisfied by JACINTA Wills Kennie L Electronic Signature on File Electronically Reviewed/Signed by: Lesley Muro Author Signature Dt/Tm:01/22/2024 09:13 AM Electronically Reviewed/Signed by: Scottie Rivas MD Cosigner Signature Dt/Tm: 01/22/2024 10:11AM Division of Sports Medicine OA Patient Care team information Care Team Personnel Name: MD Titus Gregory G Position: Physician - Sports Medicine [place] Member Role: Lifetime Relationship Address: Address: [address] [address] [place] Name: LEXY Sorensen Desiree A Position: Referring DIRECT Member Role: Primary Care Provider Address: Address: [address] [place] [address] [place] Care Team Related Persons Name: KANNAN VARGAS Address: home [address] [place] [phone]"
--- OUTSIDE RECORDS SUMMARY | 2024-03-29 07:02 | External Medical Summary | Summary of Care ---
Author Name Unknown Organization [facility] Address [address] [facility] [address] Phone [phone] Care Team Providers Care Ear Pull Machine Operator Name Role Phone Sunshine Chapa MD Primary Care Provid er Encounter Details Date Type Department Care Team (Late st Contact Info) Description 03/09/2024 Orders Only Nutrition & Weight Management, [facility] [address] [place] [address] Ekaterina Shearer PA-C [address] [place] [address] Allergies Active Allergy Reactions Criticality Noted Date Comments Codeine Nausea/vomiting 06/06/2014 Naltrexone Itching Medium 03/02/2024 Oxycodone Base Nausea/vomiting 11/24/2013 Propoxyphene Napsylate 04/01/2001 documented as of this encounter (statuses as of 03/09/2024) Medications Medication Sig Dispensed Refills Start Date End Date Status Amitriptyline HCl 25 MG Oral Tablet (Elavil) Take 1 Tablet by mouth in the morning. 05/28/2020 Active Gabapentin 600 MG Oral Tablet (Neurontin) 06/07/2022 Active LORazepam 1 MG Oral Tablet 10/22/2021 Active Azelastine HCl 0.1 % Nasal Solution (Astelin)Indications :Nasal congestion Administer 1 Nash into nostril in the morning and 1 Nash before bedtime. 30 mL 12 11/25/2022 Active [...] 10/29/2023 Active Vitamin D (Ergocalciferol) 1.25 MG (61139 UT) Oral Capsule (Drisdol) Take 1 Capsule by mouth once a week. 8 Capsule 03/09/2024 Active documented as of this encounter (statuses as of 03/09/2024) Active Problems Problem Noted Date Diagnosed Date [...] as of this encounter (statuses as of 03/09/2024) Resolved Problems Problem Noted Date Diagnosed Date [...] as of this encounter (statuses as of 03/09/2024) Immunizations Name Administration Dates Next Due Covid-19 Ad26, Single Dose (Bennie/J&J) 021,10/12/2020 Pneumococcal Conjugate Vacci ne, 20-valent ([id number]) 04/29/2022 Seasonal Influenza, PF, 6 M & [...] money to buy more. Never true 10/20/19 Within the past 12 months, t he [...] AM EDT [facility] [address] [place] [phone] Josefina Adams, [address] [place] [address] Health Maintenance Due Date Last Done Comments [...] filedocumented as of this encounter Care Teams Ear Pull Machine Operator Relationship Specialty Start Date End Date Sunshine Chapa MD [address] [place] [facility] [place] [facility] [place] [address] PCP - General Family Medicine 10/06/23 documented as of this encounter
--- OUTSIDE RECORDS SUMMARY | 2024-03-29 07:02 | External Medical Summary | Summary of Care ---
Author Name Unknown Organization [facility] Address [address] [place] [address] Phone [phone] Care Team Providers Care Drupal Programmer Name Role Phone Sunshine Chapa MD Primary Care Provid er Reason for Visit * Reason Onset Date Comments Appointment 03/02/2024 Encounter Details Date Type Department Care Team (Late st Contact Info) Description 03/02/2024 Telephone [facility] [address] [place] [address] Sunshine Chapa MD [address] [place] [address] Appointment Allergies Active Allergy Reactions Criticality Noted Date Comments Codeine Nausea/vomiting 06/06/2014 Naltrexone Itching Medium 03/02/2024 Oxycodone Base Nausea/vomiting 11/24/2013 Propoxyphene Napsylate 04/01/2001 documented as of this encounter (statuses as of 03/25/2024) Medications Medication Sig Dispensed Refills Start Date End Date Status Amitriptyline HCl 25 MG Oral Tablet (Elavil) Take 1 Tablet by mouth in the morning. 05/28/2020 Active Gabapentin 600 MG Oral Tablet (Neurontin) 06/07/2022 Active LORazepam 1 MG Oral Tablet 10/22/2021 Active Azelastine HCl 0.1 % Nasal Solution (Astelin)Indications :Nasal congestion Administer 1 Citronelle into nostril in the morning and 1 Citronelle before bedtime. 30 mL 12 11/25/2022 Active [...] as of this encounter (statuses as of 03/25/2024) Active Problems Problem Noted Date Diagnosed Date [...] as of this encounter (statuses as of 03/25/2024) Resolved Problems Problem Noted Date Diagnosed Date [...] as of this encounter (statuses as of 03/25/2024) Immunizations Name Administration Dates Next Due Covid-19 Ad26, Single Dose (Bennie/J&J) 021,10/12/2020 Pneumococcal Conjugate Vacci ne, 20-valent ([id number]) 04/29/2022 Seasonal Influenza, PF, 6 M & [...] money to get more. Never true 10/20/2022 Utilities Answer Date Recorded Do you have trouble paying y our heating, water, or electric bill? (Adult - for ages 18 years and over) Not on file 03/15/2024 Is your family able to pay t he heat, water, or electric bill? (Household - for ages 0-17 years) Not on file 03/15/2024 Does your family have access to good internet? (Household - for ages 0-17 years) Not on file 03/15/2024 Social Connections Answer Date Recorded How often do you feel lonely or isolated from those around you? (Adult - for ages 18 years and over) Not on file 03/15/2024 Sex and Gender Information Value Date Recorded Sex Assigned at Female 04/29/2022 9:06 AM EDT Gender Identity Female 04/29/2022 9:06 AM EDT Sexual Orientation Straight 01/31/2020 8: 10 AM EDT Job Start Date Occupation Industry Not on file Not on file Not on file documented as of this encounter Miscellaneous Notes * Telephone Encounter - Raiza Simmons OSA - 03/02/2024 2:26 PM EDT Follow-up disposition: Return in about 3 months (around 06/02/2024). Needs to be scheduled in 3 months tried giving next available but the schedule ended in Aug with nooptions to schedule Please call to schedule thank you! documented in this encounter Plan of Treatment Upcoming Encounters Date Type Department Care Team (Late st Contact Info) Description 05/03/2024 10:20 AM EDT Office Visit [facility] Disorders [facility]tr [facility] [address] [phone] Josefina Adams DO [address] [address] Health Maintenance Due Date Last Done Comments Cologuard 2002 Fecal Occult Blood Test 2002 Sigmoidoscopy 2002 COVID-19 Vaccine ( - season) 2023 03/09/2021, 10/12/2020 Depression Monitoring 10/20/2023 [...] filedocumented as of this encounter Care Teams Drupal Programmer Relationship Specialty Start Date End Date Sunshine Chapa MD [address] [place] [facility] [place] [address] PCP - General Family Medicine 1/9/24 documented as of this encounter
--- OUTSIDE RECORDS SUMMARY | 2024-03-29 07:03 | External Medical Summary | Summary of Care ---
Author Name Unknown Organization [facility] Address [address] [place] [address] Phone [phone] Care Team Providers Care Funeral Greeter Name Role Phone Sunshine Chapa MD Primary Care Provid er Reason for Visit * Reason Onset Date Comments Advice 12/25/2023 Encounter Details Date Type Department Care Team (Late st Contact Info) Description 12/25/2023 Telephone Gastroenterology, [address] [phone] Ekaterina Shearer PA-C [address] [place] [address] Advice Allergies Active Allergy Reactions Criticality Noted Date Comments Codeine Nausea/vomiting 06/06/2014 Oxycodone Base Nausea/vomiting 11/24/2013 Propoxyphene Napsylate 04/01/2001 documented as of this encounter (statuses as of 12/29/2023) Medications Medication Sig Dispensed Refills Start Date End Date Status Amitriptyline HCl 25 MG Oral Tablet (Elavil) Take 1 Tablet by mouth in the morning. 0 05/28/2020 Active Gabapentin 600 MG Oral Tablet (Neurontin) 0 06/07/2022 Active LORazepam 1 MG Oral Tablet 0 10/22/2021 Active Azelastine HCl 0.1 % Nasal Solution (Astelin)Indication s:Nasal congestion Administer 1 [place] into nostril in the morning and 1 [place] before bedtime. 30 mL 12 11/25/2022 Active [...] late afternoon) 60 Tablet 4 10/29/2023 Active Naltrexone HCl 50 MG Oral Tablet (Revia) Take 1/2 tab by mouth once a day for 1 week then take 1/2 tab twice a day (morning & late afternoon) 30 Tablet 4 10/29/2023 Active documented as of this encounter (statuses as of 12/29/2023) Active Problems Problem Noted Date Diagnosed Date [...] as of this encounter (statuses as of 12/29/2023) Resolved Problems Problem Noted Date Diagnosed Date [...] as of this encounter (statuses as of 12/29/2023) Immunizations Name Administration Dates Next Due Covid-19 Ad26, Single Dose (Bennie/J&J) 021,10/12/2020 PPD 01/25/2004,08/17/2001 Pneumococcal Conjugate Vacci ne, 20-valent ([id number]) 04/29/2022 Seasonal Influenza, PF, 6 M & [...] encounter Miscellaneous Notes * Telephone Encounter - César Elise LPN - 12/29/2023 11:26 AM EDT Left message for patient to return call. MyG sent * Telephone Encounter - Ekaterina Shearer PA-C - 12/28/2023 9:18 AM EDT Recommend adding Miralax and metamucil to her bowel regimen. Continue naltrexone if she is otherwise tolerating it. Increase dietary fiber - fruits, veggies, beans, oats * Telephone Encounter - Jackie Stephens, RN - 12/25/2023 11:09 AM EDT Pt called in. Says she is having a lot of constipation and thinks it is related to her natlrexone. Has tried colace with no improve. Also tried an OTC "laxative pill," but can't tell me the name. Pt has not tried miralax. Wants to know what she should do. documented in this encounter Plan of Treatment Upcoming Encounters Date Type Department Care Team (Late st Contact Info) Description 02/12/2024 9:00 AM EDT Office Visit [facility] [id number] [place] [address] Sunshine Chapa MD [address] [place] [address] 03/02/2024 2:00 PM EDT Office Visit Nutrition & Weight Management, [facility] [address] [address] Ekaterina Shearer PA-C [address] [place] [address] 05/03/2024 10:20 AM EDT Office Visit Sleep [facility] [address] [phone] Josefina Adams DO [address] [address] Health Maintenance Due Date Last Done Comments Cologuard 2002 Fecal Occult Blood Test 2002 Sigmoidoscopy 2002 COVID-19 Vaccine ( season) 2023 03/09/2021, 10/12/2020 Depression Screening 10/20/2023 10/20/2022 Mammogram 05/20/2024 05/20/2023, 04/29, 04/25/2022, [...] filedocumented as of this encounter Care Teams Funeral Greeter Relationship Specialty Start Date End Date Sunshine Chapa MD [address] [place] [facility] [place] [address] PCP - General Family Medicine 10/06/23 documented as of this encounter
--- OUTSIDE RECORDS SUMMARY | 2024-03-29 07:03 | External Medical Summary | Summary of Care ---
Author Name Unknown Organization [facility] Address [address] [place] [address] Phone [phone] Care Team Providers Care Hvac Designer Name Role Phone Sunshine Chapa MD Primary Care Provid er Reason for Visit * Reason Onset Date Comments Advice 12/25/2023 Encounter Details Date Type Department Care Team (Late st Contact Info) Description 12/25/2023 Telephone Gastroenterology, [address] [phone] Ekaterina Shearer PA-C [address] [place] [address] Advice Allergies Active Allergy Reactions Criticality Noted Date Comments Codeine Nausea/vomiting 06/06/2014 Oxycodone Base Nausea/vomiting 11/24/2013 Propoxyphene Napsylate 04/01/2001 documented as of this encounter (statuses as of 12/28/2023) Medications Medication Sig Dispensed Refills Start Date End Date Status Amitriptyline HCl 25 MG Oral Tablet (Elavil) Take 1 Tablet by mouth in the morning. 0 05/28/2020 Active Gabapentin 600 MG Oral Tablet (Neurontin) 0 06/07/2022 Active LORazepam 1 MG Oral Tablet 0 10/22/2021 Active Azelastine HCl 0.1 % Nasal Solution (Astelin)Indication s:Nasal congestion Administer 1 [place] into nostril in the morning and 1 [place] before bedtime. 30 mL 12 11/25/2022 Active [...] as of this encounter (statuses as of 12/28/2023) Active Problems Problem Noted Date Diagnosed Date [...] as of this encounter (statuses as of 12/28/2023) Resolved Problems Problem Noted Date Diagnosed Date [...] as of this encounter (statuses as of 12/28/2023) Immunizations Name Administration Dates Next Due Covid-19 Ad26, Single Dose (Bennie/J&J) 021,10/12/2020 Pneumococcal Conjugate Vacci ne, 20-valent ([id number]) 04/29/2022 Seasonal Influenza, PF, 6 M & [...] encounter Miscellaneous Notes * Telephone Encounter - Ekaterina Shearer PA-C - 12/28/2023 9:18 AM EDT Recommend adding Miralax and metamucil to her bowel regimen. Continue naltrexone if she is otherwise tolerating it. Increase dietary fiber - fruits, veggies, beans, oats * Telephone Encounter - Jackie Stephens RN - 12/25/2023 11:09 AM EDT Pt [...] Description 02/12/2024 9:00 AM EDT Office Visit [facility] [address] [place] [facility] [place] [phone] Sun[facility] [address] [facility] [address] 03/02/2024 2:00 PM EDT [facility], [facility] [address] [place] [address] Ekaterina Shearer PA-C [address] [place] [address] 05/03/2024 10:20 AM EDT Office Visit Sleep Disorders Ctr [facility] [address] [place] [phone] Josefina Adams, [address] [place] [address] Health Maintenance Due Date Last Done Comments Cologuard 2002 Fecal Occult Blood Test 2002 Sigmoidoscopy 2002 COVID-19 Vaccine (2022- season) 2023 03/09/2021, 10/12/2020 Depression Screening 10/20/2023 [...] filedocumented as of this encounter Care Teams Hvac Designer Relationship Specialty Start Date End Date Sunshine Chapa MD [address] [place] [address] PCP - General Family Medicine 10/06/23 documented as of this encounter
--- OUTSIDE RECORDS SUMMARY | 2024-03-29 07:03 | External Medical Summary | Summary of Care ---
Author Name Unknown Organization [facility] Address [address] [place] [address] Phone [phone] Care Team Providers Care Banquet Houseperson Name Role Phone Sunshine Chapa MD Primary Care Provid er Reason for Visit * Reason Onset Date Comments Advice 12/25/2023 Encounter Details Date Type Department Care Team (Late st Contact Info) Description 12/25/2023 Telephone Gastroenterology, [address] [address] Ekaterina Shearer PA-C [address] [place] [address] Advice Allergies Active Allergy Reactions Criticality Noted Date Comments Codeine Nausea/vomiting 06/06/2014 Oxycodone Base Nausea/vomiting 11/24/2013 Propoxyphene Napsylate 04/01/2001 documented as of this encounter (statuses as of 01/05/2024) Medications Medication Sig Dispensed Refills Start Date End Date Status Amitriptyline HCl 25 MG Oral Tablet (Elavil) Take 1 Tablet by mouth in the morning. 0 05/28/2020 Active Gabapentin 600 MG Oral Tablet (Neurontin) 0 06/07/2022 Active LORazepam 1 MG Oral Tablet 0 10/22/2021 Active Azelastine HCl 0.1 % Nasal Solution (Astelin)Indication s:Nasal congestion Administer 1 [place] into nostril in the morning and 1 [place] before bedtime. 30 mL 12 11/25/2022 Active [...] as of this encounter (statuses as of 01/05/2024) Active Problems Problem Noted Date Diagnosed Date [...] as of this encounter (statuses as of 01/05/2024) Resolved Problems Problem Noted Date Diagnosed Date [...] as of this encounter (statuses as of 01/05/2024) Immunizations Name Administration Dates Next Due Covid-19 Ad26, Single Dose (Bennie/J&J) 021,10/12/2020 PPD 01/25/2004,08/17/2001 Pneumococcal Conjugate Vacci ne, 20-valent ([id number]) 04/29/2022 Seasonal Influenza, PF, 6 M & [...] Telephone Encounter - César Elise LPN - 01/05/2024 10:54 AM EDT Patient aware and voiced understanding She would like to discuss this further at her appointment today 01/05/2024 * Telephone Encounter - César Elise LPN [...] Care Team (Late st Contact Info) Description 01/05/2024 12:40 PM EDT Office Visit Nutrition & Weight Management, [facility] [address] [place] [address] Ekaterina Shearer PA-C [address] [place] [address] 02/12/2024 9:00 AM EDT [facility] [address] [facility] [phone] Sunshine Chapa MD [address] [place] [address] 03/02/2024 2:00 PM EDT Office Visit Nutrition & Weight Management, [facility] [address] [place] [address] Ekaterina Shearer PA-C [address] [place] [address] 05/03/2024 10:20 AM EDT Office Visit Sleep Disorders Ctr [facility] [address] [place] [phone] Josefina Adams DO [address] [place] [address] Health Maintenance Due Date Last Done Comments [...] filedocumented as of this encounter Care Teams Banquet Houseperson Relationship Specialty Start Date End Date Sunshine Chapa MD [address] [place] [facility] [place] [address] PCP - General Family Medicine 10/06/23 documented as of this encounter
--- OUTSIDE RECORDS SUMMARY | 2024-03-29 07:03 | External Medical Summary | Summary of Care ---
Author Name Unknown Organization [facility] [address] [facility] [address] Phone [phone] Care Team Providers Care Radiologic Technologist Mammogram Name Role Phone Sunshine Chapa MD Primary Care Provid er Reason for Visit * Reason Comments Weight Management The pt stated she is here to follow up regarding her Wellbutrin and Naltrexone Encounter Details Date Type Department Care Team (Late st Contact Info) Description 01/05/2024 12:40 PM EDT Office Visit Nutrition & Weight Management, [facility] [address] [place] [address] Ekaterina Shearer PA-C [address] [place] [address] Morbid obesity due to excess calories (HCC)* Allergies Active Allergy Reactions Criticality Noted Date Comments Codeine Nausea/vomiting 06/06/2014 Oxycodone Base Nausea/vomiting 11/24/2013 Propoxyphene Napsylate 04/01/2001 documented as of this encounter (statuses as of 01/05/2024) Medications Medication Sig Dispensed Refills Start Date End Date Status Amitriptyline HCl 25 MG Oral Tablet (Elavil) Take 1 Tablet by mouth in the morning. 0 0 Active Gabapentin 600 MG Oral Tablet (Neurontin) 0 2 Active LORazepam 1 MG Oral Tablet 0 2 Active Azelastine HCl 0.1 % Nasal Solution (Astelin)Indicati ons:Nasal congestion Administer 1 [place] into nostril in the morning and 1 [place] before bedtime. 30 mL 12 3 Active Betamethasone Dipropionate 0.05 % External OintmentIndicatio ns:Irritant contact dermatitis due to other chemical products Apply to hands twice daily 50 g 1 3 Active Lisinopril 10 MG Oral Tablet [...] for Dizziness. 30 Tablet 1 4 Active Clotrimazole-Beta meth & Zn Ox 1-0.05 & 20 % External Therapy PackIndications:I ntertrigo Apply thin film to affected areas, twice a day for 2 weeks. Apply to area under abdominal area. 135 g 1 4 Active Clotrimazole 1 % External Cream (Lotrimin)Indicat ions:Intertrigo Coadminister cream with triamcinolone cream. Apply to rash on lower abdomen area. 15 g 1 4 Active Triamcinolone Acetonide 0.1 % External Cream (Aristocort)Indic ations:Intertrigo Apply topically to affected area 2 times a day. Coadminister cream with clotrimazole cream. To affected area. 80 g 5 4 Active Ondansetron HCl 4 MG Oral Tablet 1 Tablet. 0 3 Active buPROPion HCl ER (SR) 150 MG Oral Tablet Extended Release 12 Hour (Wellbutrin SR) Take 1 tab by mouth once a day for 1 week then take 1 tab twice a day (morning & late afternoon) 60 Tablet 4 4 Active Metoprolol Succinate ER 25 MG Oral Tablet Extended Release 24 Hour (toPROL XL) 0 4 Active traMADol HCl 50 MG Oral Tablet (Ultram) 0 4 Active Naltrexone HCl 50 MG Oral Tablet (Revia) Take 1/2 tab by mouth once a day for 1 week then take 1/2 tab twice a day (morning & late afternoon) 30 Tablet 4 4 01/05/20 24 Discontinued documented as of this encounter [...] (Bennie/J&J) 021,10/12/2020 Pneumococcal Conjugate Vacci ne, 20-valent ([id number]) 04/29/2022 Seasonal Influenza, PF, 6 M & [...] Sign Reading Time Taken Comments Blood Pressure 116/62 01/05/2024 12:41 PM EDT Pulse 79 01/05/2024 12:41 PM EDT Temperature 36.6 C (97.9 F) 01/05/2024 12:41 PM E DT Respiratory Rate - - Oxygen Saturation 95% 01/05/2024 12:41 PM EDT Inhaled Oxygen Concentration - - Weight 84.6 kg (186 lb 9.6 oz) 01/05/2024 12:41 PM EDT Height - - Body Mass Index 35.84 11/03/2023 2:22 PM EST documented in this encounter Progress Notes * Ekaterina Shearer PA-C - 01/05/2024 12:36 PM EDT Comprehensive [facility] Note Nursing Notes: César Elise LPN 01/05/24 1243 Signed Chief Complaint Patient presents with Weight Management The pt stated she is here to follow up regarding her Wellbutrin and Naltrexone Sumi Najera presents in follow up to the comprehensive weight management clinic. The patient is a69 year old female Wt Readings from Last 6 Encounters: 01/05/24 84.6 kg (186 lb 9.6 oz) 11/03/23 88.9 kg (196 lb) 10/29/23 87.6 kg (193 lb 3.2 oz) 10/27/23 88 kg (194 lb) 10/06/23 89.5 kg (197 lb 6.4 oz) 08/24/23 94.6 kg (208 lb 8 oz) Patient is receiving ongoing education regarding dietary and physical modifications for weight loss. - Initial clinic visit 04/22/23. Weight at that time was 244 lbs - Today's weight: 186 lbs - Total weight loss of -58 since initial weight in clinic - Patient's weight has -7lbs since last visit on 10/29/23 01/05/24 -on wellbutrin/naltrexone -following WW -wants to [...] - Highest wt as adult: 246 in 2020 - Lowest wt as adult: 162 - Wt loss hx: lost about 98 pounds with weight watchers but gained it all back - Current plan: trying to watch what she eats - Barriers: "nightime eater" portion trouble - Eating behaviors: See 24 hour recall below. 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 Musculoskeletal: Positive for arthralgias. All other systems reviewed and are negative. Current Medications: Current Outpatient Medications Medication Sig Dispense Refill Amitriptyline HCl 25 MG Oral Tablet (Elavil) Take 1 Tablet by mouth in the morning. Gabapentin 600 MG Oral Tablet (Neurontin) LORazepam 1 MG Oral Tablet Azelastine HCl 0.1 % Nasal Solution (Astelin) Administer 1 [place] into nostril in the morning and 1 [place] before bedtime. 30 mL 12 Betamethasone Dipropionate [...] (morning & late afternoon) 60 Tablet 4 Naltrexone HCl 50 MG Oral Tablet (Revia) Take 1/2 tab by mouth once a day for 1 week then take 1/2 tab twice a day (morning & late afternoon) 30 Tablet 4 No current facility-administered medications for this visit. Water intake: yes Prescribed diet: 8527-3963 Calorie Controlled Current diet: Breakfast-- 2 eggs, toast, banana, coffee Snack-- Lunch-- turkey breast, gravy Snack-- protein bar Dinner-- macaroni salad, grapes Snack-- skips Drinks-- water Meals Away from Home-- rare Food logs: Yes and reviewed with patient today Type of exercise: ADL Weight loss Pharmacotherapy: yes Topamax 50 mg mg Daily BP 116/62 | Pulse 79 | Temp 36.6 C (97.9 F) | Wt 84.6 kg (186 lb 9.6 oz) | SpO2 95% | BMI 35.84kg/m | BSA 1.9 m PHYSICAL EXAMINATION: General: Patient awake alert and oriented. Patient is well appearing and in no acute distress. Skin: No rashes. HEENT: Head is atraumatic, normocephalic. EOMs intact Abdomen: Obese Neuro: No focal deficits Psych: Appropriate mood and affect. Assessment and Plan: Abnormal weight gain / Body mass index is 35.84 kg/m. / Morbid obesity : - Would [...] you bite it, write it! Apps like Tokutek or [employer]ino Calorie goal: 1200 2. Drink 48-64 ounces [...] Morbid obesity due to excess calories (HCC) -ok to continue wellbutrin, stop naltrexone -continue with WW -recommend 0.5-1.0lb per week loss - discussed realistic expectations, fat vs lean mass loss, increased risk for malnutrition -increase calories by at least 300cal per day - eat when feeling hungry at night -consider topamax again -consider seeing Dr. Flores in the future Abnormal weight gain Prediabetes -would benefit from GLP1 HTN, goal below 140/90 -continue current regimen Hyperlipidemia, unspecified hyperlipidemia type -continue statin The patient agreed to try the plan as discussed and return in 2 months. They were encouraged to call or [...] Nursing Notes * César Elise LPN - 01/05/2024 12:41 PM EDT Chief Complaint Patient presents with Weight Management The pt stated she is here to follow up regarding her Wellbutrin and Naltrexone documented in this encounter Plan of Treatment Upcoming Encounters Date Type Department Care Team (Late st Contact Info) Description 02/12/2024 9:00 AM EDT [facility] [address] [facility] [phone] Sunshine Chapa MD [address] [facility] [place] [id number] 03/02/2024 2:00 PM EDT Office Visit Nutrition & Weight Management, [address] [place] [address] Ekaterina Shearer PA-C [address] [place] [address] 05/03/2024 10:20 AM EDT Office Visit [facility] Disorders [facility] [address] [place] [phone] Josefina Adams DO [address] [place] [address] Health Maintenance Due Date Last Done Comments [...] obesity due to excess calories (HCC)- Primary documented in this encounter Care Teams Radiologic Technologist Mammogram Relationship Specialty Start Date End Date Sunshine Chapa MD [address] [place] [facility] [place] [address] PCP - General Family Medicine 10/06/23 documented as of this encounter
--- OUTSIDE RECORDS SUMMARY | 2024-03-29 07:03 | External Medical Summary | Continuity of Care Document ---
Author Name Unknown Organization [id number] Address [address] [place] [id number] Care Team Providers Care Manufacturing Recruiter Name Role Phone Ofe Sorensen Primary Care Physician [phone] Encounter [facility] [id number] Date(s): 11/24/23 - 11/24/23 [facility] [address] [place] [address] [facility] Sports Medicine [address] [place] [address] Encounter Diagnosis S/P shoulder surgery(Discharge Diagnosis) - 11/24/23 Stiffness of right shoulder joint(Discharge Diagnosis) - 11/24/23 Discharge Disposition: Home or Self Care Attending Physician: MD Rivas Paul K Allergies, Adverse Reactions, Alerts Substance Reaction Severity Status codeine Active Assessment and Plan Extracted from: Title:Scottie Rivas Author:Juaquin Newton Date:11/24/23 IMPRESSION:68 Yearsold FemaleS/p right shoulder arthroscopy, subacromial bursectomy, major debridement, manipulation under anesthesia DOS: 10/15/2023. PLAN: - Patient should continue to limit lifting to 5lbs - Continue with formal PT with Focus on working shoulder ROM - I offered the patient oral steroids which she declined at this point due to just recently losing significant weight and not wishing to regain it. - Continue to stay off of work at this time -Follow up in 2 months to re-assess ROM Medications amitriptyline 25 mg oral tablet Start: 06/03/23 11:03:00 EDT, See Instructions, Disp# 30 tab, Refills: 5, TAKE ONE TABLET BY MOUTH AT BEDTIME , Pharmacy: [id number] Start Date: 06/03/23 Status: Ordered Ativan 1 mg oral tablet Start: 10/22/21 16:09:00 EST, See Instructions, Disp# 2 tab, 1 tab PO tid, Note to Pharmacy: Take 30 minutes prior to MRI may repeat x1, Pharmacy: [id number] Start Date: 10/22/21 Status: Ordered [...] food, PRN: as needed for pain, Pharmacy: [id number] Start Date: 09/29/23 Stop Date: 11/28/23 Status: Ordered diclofenac sodium 75 mg oral delayed release tablet Start: 08/19/23 12:22:00 EST, 1 tab, PO, bid, Disp# 60 tab, with food, PRN: as needed for pain, Pharmacy: [id number] Start Date: 08/19/23 Stop Date: 09/18/23 Status: Ordered Euflexxa 10 mg/mL intra-articular solution Start: 06/21/21 10:05:00 EDT, 20 mg =, intra-articular, q7days, Disp# 6 mL, 2 mL Euflexxa injectionevery 7 days for 3 weeks, [id number] Start Date: 06/21/21 Stop Date: 07/12/21 Status: Ordered Euflexxa 10 mg/mL intra-articular solution Start: 10/17/20 13:54:00 EST, 20 mg =, intra-articular, q7days, Disp# 12 mL, Refills: 1, Intra-articular injections; inject 2 mL to each knee weekly for 3 weeks, Pharmacy: [facility] Start Date: 10/17/20 Status: Ordered gabapentin 600 mg oral tablet Start: 09/22/23 8:59:00 EST, 1 tab, PO, bid, Disp# 60 tab, Refills: 5, Pharmacy: [id number] Start Date: 09/22/23 Status: Ordered hydrocodone Start: 04/18/13 15:37:00, Refills: 0 Start Date: 04/18/13 Status: Ordered metoprolol succinate 25 mg oral tablet, extended release Start: 12/26/13 8:11:00, 1 tab, PO, Daily Start Date: 12/26/13 Status: Ordered Robaxin 500 mg oral tablet Start: 06/20/22 8:25:00 EDT, 1 tab, PO, q8h, Disp# 90 tab, Refills: 5, Pharmacy: [id number] Start Date: 06/20/22 Stop Date: 12/17/22 Status: Ordered silver sulfADIAZINE 1% topical cream Start: 03/21/22 9:03:00 EDT, 1 appl, topical, bid, Disp# 30 g, Refills: 1, Pharmacy: [id number] Start Date: 03/21/22 Stop Date: 05/20/22 Status: Ordered traMADol 50 mg oral tablet Start: 10/30/23 14:34:00 EST, 2 tab, PO, q4h, Disp# 24 tab, Refills: 0, Pain control Ongoing Tx notto exceed 400 mg/day, PRN: as needed for pain, Pharmacy: [id number] Start Date: 10/30/23 Status: Ordered Zofran 4 mg oral tablet Start: 03/04/23 10:43:00 EDT, 1 tab, PO, q8h, Disp# 12 tab, post op nausea/vomiting, [facility] Start Date: 03/04/23 Status: Ordered Mental Status 11/24/23 Barriers to Learning one year None evide nt Mandatory Health Literacy Documentation Yes Health Literacy Communication Barriers N ever Primary Language Czech Problem List Condition Confirmation Course Effective Dates [...] Dates Health Status Cl inical Service Informant Stiffness of right shoulder joint Discharge Diagnosis 11/24/23 S/P shoulder surgery Discharge Diagnosis 11/24/23 Procedures Procedure Date Related Diagnosis Body Site Status Total hip replacement 2008 Com pleted Hysterectomy 2001 Completed Carpal tunnel release 1980 Com pleted Fusion 1 1975 Completed Tonsillectomy 1959 Completed 1C5/C6 Social History Social History Type Response Smoking Status Never smoked cigaret willow Sex Female Ortho Outpt Note * Juaquin Newton: PERFORM, MODIFY Event Display: Ortho Outpt Note Authored Date: [id number] Primary Care Provider LEXY Sorensen Desiree A Chief Complaint f/u R shoulder History of Present Illness [id number] yearoldFemaljoyceho presents today forf/u s.p right shoulder arthroscopy, subacromial bursectomy, major debridement, manipulation under anesthesia DOS: 10/15/2023. She is doing well and has no pain at rest. She has pain at end ROM. Overall her ROM is improving. She has pain with forward flexion in her lateral arm. She is no longer taking the Tramadol. She has has relief with oral steroids but notes she does not wish to gain weight. Overall she is progressing well after surgery. Review of Systems A 14 point review of systems isavailable in the EMR. Physical Exam Focusing onthe patient'sright upper extremity: Sensation intact to the median, radial, ulnar, and axillary nerve distributions. ROM: Forward flexion 145 vs 160 / Abduction 120, vs 165 / External rotation 40 vs 65 Mild discomfort with resisted external and internal rotation with arm at the side Mild discomfort with Empty can test Diagnostic Results I obtained and personally interpreted4 views of theright shoulder which shows resection of distal clavicle that is unchanged from prior, no change in the cartilage space, slight cephalad migration of the humeral head, Assessment/Plan IMPRESSION:68 YearsoldFemaleS/p right shoulder arthroscopy, subacromial bursectomy, major debridement, manipulation under anesthesia DOS: 10/15/2023. PLAN: - Patient should continue to limit lifting to 5lbs - Continue with formal PT with Focus on working shoulder ROM - I offered the patient oral steroids which she declined at this point due to just recently losing significant weight and not wishing to regain it. - Continue to stay off of work at this time -Follow up in 2 months to re-assess ROM Attestation I, Juaquin Newton, scribing for and in the presence of, Scottie Rivas, on this date,11/24/2023 08:37:36. Problem List/Past Medical History Ongoing Arm pain, [...] of right shoulder Procedure/Surgical History Total hip replacement (2007)Hysterectomy (2001)Carpal tunnel release (1979)Fusion (1975)Tonsillectomy (1959) Medications amitriptyline(amitriptyline 25 mg oral tablet), See Instructions atorvastatin(atorvastatin 20 mg oral tablet), 20 mg= [...] due03/27/23and every 1year Due Adult COVID-19 Vaccination due11/24/23Unknown Frequency Adult Social Determinants of Health Screening due11/24/23Unknown Frequency Adult Tdap/Td Vaccine due11/24/23Unknown Frequency Colorectal Cancer Screening due11/24/23Unknown Frequency Falls Plan of Care due11/24/23Unknown Frequency Hepatitis C Screening due11/24/23One-time only Osteoporosis Screening due11/24/23One-time only Pneumococcal Vaccine Older Adults due11/24/23One-time only Shingles Vaccine due11/24/23One-time only Due In Future Body Mass Index not due until09/29/24and every Satisfied(in the past 1 year) Satisfied Body Mass Index on09/29/23.Satisfied by JACINTA Wills Kennie L Electronic Signature on File Electronically Reviewed/Signed by: Juaquin Newton Author Signature Dt/Tm:11/24/2023 08:45 AM Electronically Reviewed/Signed by: Scottie Rivas MD Cosigner Signature Dt/Tm: 11/24/2023 01:05PM Division of Sports Medicine DS Patient Care team information Care Team Personnel Name: MD Titus Gregory G Position: Physician - Sports Medicine [place] Member Role: Lifetime Relationship Address: Address: [address] [address] [place] Name: LEXY Sorensen Desiree A Position: Referring DIRECT Member Role: Primary Care Provider Address: Address: [address] [place] [address] [place] Care Team Related Persons Name: KANNAN VARGAS Address: home [address] [place], [place] [id number]
[2024-03-29 07:36] LABS: Albumin Level 3.9 gm/dl (3.4-5.0); Bilirubin,Total 0.8 mg/dl (0.2-1.0); Calcium 8.5 mg/dl (8.6-10.3); Magnesium 1.9 mg/dl (1.7-2.4); Potassium 4.2 mmol/L (3.5-5.1)
[2024-03-29 07:42] LABS: Albumin Globulin Ratio 1.8 (0.9-2); BUN Creatinine Ratio 14.3 (10-20); Creatinine Clr Calc Pharmacy 85.9 ml/min; Est GFR (African American) 107.6 ml/min; Est GFR (Non-African American) 92.8 ml/min; Globulin 2.2 gm/dl (2.5-4.0); Total Protein 6.1 gm/dl (6.0-8.3)
--- NOTE | 2024-03-29 08:45 | Hospitalist Progress Note ---
Date of Service March 29, 2024 Assessment & Plan (1) Left rib fracture: (2) Hypertension: (3) Anxiety: Plan This is a 69-year-old female who has significant past medical history of hypertension, hyperlipidemia, depression with anxiety, history of PE, history of falls who presents to ED after sustaining a fall 2 days ago now reporting significant left-sided chest wall pain. Mechanical fall with left rib fracture and pain- CT shows Left eighth rib fracture is seen without evidence of pneumothorax or other acute abnormality. Bronchial wall thickening may represent infectious/inflammatory airways disease but denies any respiratory symptoms whatsoever and hence will hold off on antibiotics. In pain on admission. Started on lidoderm patch, tid tylenol, q6hr toradol with prn tramadol if needed- states she did not like oxycodone. IS. Consulted with gen. surgery given trauma to chest - no new recommendations - continue IS Pt feels well and is interested in discharge home. HTN- stable, continue lisinopril Hyponatremia- mild, Could be in setting of pain. Received ivf in ED and improved. Current Na level 131 - follow up as outpt. Anxiety depression- on citalopram. On amitriptyline for sleep and on Wellbutrin for weight loss. PCP: Sunshine Chapa Admission and Anticipated Discharge Date Admission Date: March 28, 2024 Subjective Pt seen in follow up of chest trauma/ fall / rib fracture Currently sitting in bed in NAD, pain is much better controlled Denies any difficulty breathing, or cough No fever, chills, no abd. pain Discussed w/ surgery given trauma to chest - no new recommendations, continue using IS Review of Systems Review of Systems: All systems reviewed & are unremarkable except as noted in Subjective Physical Exam Physical Exam: General: sitting up comfortably in bed, not in distress, on room air HEENT: EOMI, RVIERA, MMM Chest: Left chest wall tenderness to palp. due to rib fracture. CTAB CVS: Regular rate and rhythm, normal heart sounds, no murmur Abdomen: Soft, non tender, not distended, normal bowel sounds Neuro: Awake, alert, oriented, conversing well, moves extremities Extremities: No LE edema, moves extremities Results & Data Results & Data Vital Signs (Past 12 Hours) Vital Signs Temp Pulse Pulse Resp BP BP Pulse Ox 03/29/24 07:41 36.5 C 66 18 93/57 L 96 03/29/24 07:31 67 03/29/24 03:48 36.5 C 73 16 100/64 96 03/28/24 23:26 36.6 C 75 18 91/56 L 95 03/28/24 21:51 82 O2 Del Method 03/29/24 07:41 Room Air 03/29/24 07:31 03/29/24 03:48 Room Air 03/28/24 23:26 Room Air 03/28/24 21:51 Laboratory Results 03/29/24 03/29/24 03/28/24 Range/Units 06:11 06:08 16:07 WBC 6.32 (4.8-10.8) K/ul RBC 3.47 L (4.20-5.40) M/uL Hgb 10.6 L (12.0-16.0) g/dl POC Hgb 12.9 (12.0-16.0) g/dl Hct 31.5 L (37.0-47.0) % POC Hct 38 (37-47) % MCV 90.8 (80.0-100.0) fL MCH 30.5 (25.0-34.0) pg MCHC 33.7 (32.0-36.0) g/dL RDW Std Deviation 44.6 (36.4-46.3) fL RDW Coeff of Alex 13.3 (11.5-14.5) % Plt Count 299 (130-400) K/uL MPV 9.8 (9.4-12.4) fL Immature Gran % (Auto) 0.2 % Neut % (Auto) 52.2 % Lymph % (Auto) 33.1 % [place] % (Auto) 8.9 % Eos % (Auto) 5.1 % Baso % (Auto) 0.5 % Neut # (Auto) 3.31 (1.40-6.50) K/uL Lymph # (Auto) 2.09 (1.20-3.40) K/uL [place] # (Auto) 0.56 (0.11-0.59) K/uL Eos # (Auto) 0.32 (0.00-0.50) K/uL Baso # (Auto) 0.03 (0.00-0.20) K/uL Immature Gran # (Auto) 0.01 (0.01-0.20) K/uL POC Sodium 130 L (135-144) mmol/L Sodium 131 L (136-145) mmol/L POC Potassium 4.5 (3.3-5.0) mmol/L Potassium 4.2 (3.5-5.1) mmol/L POC Chloride 97 L (101-112) mmol/L Chloride 98 (98-107) mmol/L Carbon Dioxide 30 (21-32) mmol/L POC Total CO2 24 (24-31) mmol/L Anion Gap 3 (3-11) POC Anion Gap 15.0 L (16-25) mmol/L POC BUN 9 (7-18) mg/dl BUN 9 (6-23) mg/dl Creatinine 0.63 (0.6-1.2) mg/dl POC Creatinine 0.6 (0.6-1.3) mg/dl Est Cr Clr Drug Dosing 85.9 Est GFR ( Amer) 107.6 ml/min Est GFR (Non-Af Amer) 92.8 ml/min BUN/Creatinine Ratio 14.3 (10-20) Glucose 84 (70-99(Fasting)) mg/dl POC Glucose (other) 92 (70-99) mg/dl Osmolality (280-300) mOsm/kg Calcium 8.5 L (8.6-10.3) mg/dl POC Ioniz Calcium Khoi 1.16 (1.12-1.32) mmol/l Magnesium 1.9 (1.7-2.4) mg/dl Total Bilirubin 0.8 (0.2-1.0) mg/dl AST 15 (13-39) U/L ALT 12 (7-52) U/L Alkaline Phosphatase 83 (34-104) U/L Total Protein 6.1 (6.0-8.3) gm/dl Albumin 3.9 (3.4-5.0) gm/dl Globulin 2.2 L (2.5-4.0) gm/dl Albumin/Globulin Ratio 1.8 (0.9-2) Urine Color Yellow Urine Appearance Clear (Clear) Urine pH 6.5 (4.5-7.5) Ur Specific [place] 1.042 H (1.000-1.030) Urine Protein Negative (Negative) Urine Glucose (UA) Negative (Negative) Urine Ketones Negative (Negative) Urine Blood Negative (Negative) Urine Nitrite Negative (Negative) Urine Bilirubin Negative (Negative) Urine Urobilinogen Negative (Negative) Ur Leukocyte Esterase 1+ H (Negative) Urine WBC (Auto) 0-5 (0-5) /hpf Urine RBC (Auto) 0-2 (0-2) /hpf U Hyaline Cast (Auto) 0-2 (0-2) /lpf U Epithel Cells (Auto) 0-2 (0-2) /hpf Urine Bacteria (Auto) None Seen (None Seen) Urine Osmolality 483 L (500-800) mOsm/kg Ur Random Sodium 17 mmol/L 03/28/24 Range/Units 16:00 WBC 6.80 (4.8-10.8) K/ul RBC 3.86 L (4.20-5.40) M/uL Hgb 11.6 L (12.0-16.0) g/dl POC Hgb (12.0-16.0) g/dl Hct 34.1 L (37.0-47.0) % POC Hct (37-47) % MCV 88.3 (80.0-100.0) fL MCH 30.1 (25.0-34.0) pg MCHC 34.0 (32.0-36.0) g/dL RDW Std Deviation 43.1 (36.4-46.3) fL RDW Coeff of Alex 13.3 (11.5-14.5) % Plt Count 332 (130-400) K/uL MPV 9.7 (9.4-12.4) fL Immature Gran % (Auto) 0.3 % Neut % (Auto) 62.8 % Lymph % (Auto) 23.1 % [place] % (Auto) 10.1 % Eos % (Auto) 3.4 % Baso % (Auto) 0.3 % Neut # (Auto) 4.27 (1.40-6.50) K/uL Lymph # (Auto) 1.57 (1.20-3.40) K/uL [place] # (Auto) 0.69 H (0.11-0.59) K/uL Eos # (Auto) 0.23 (0.00-0.50) K/uL Baso # (Auto) 0.02 (0.00-0.20) K/uL Immature Gran # (Auto) 0.02 (0.01-0.20) K/uL POC Sodium (135-144) mmol/L Sodium 129 L (136-145) mmol/L POC Potassium (3.3-5.0) mmol/L Potassium 4.4 (3.5-5.1) mmol/L POC Chloride (101-112) mmol/L Chloride 97 L (98-107) mmol/L Carbon Dioxide 26 (21-32) mmol/L POC Total CO2 (24-31) mmol/L Anion Gap 6 (3-11) POC Anion Gap (16-25) mmol/L POC BUN (7-18) mg/dl BUN 10 (6-23) mg/dl Creatinine 0.57 L (0.6-1.2) mg/dl POC Creatinine (0.6-1.3) mg/dl Est Cr Clr Drug Dosing Not Reportable Est GFR ( Amer) 111.2 ml/min Est GFR (Non-Af Amer) 95.9 ml/min BUN/Creatinine Ratio 17.5 (10-20) Glucose 88 (70-99(Fasting)) mg/dl POC Glucose (other) (70-99) mg/dl Osmolality 268 L (280-300) mOsm/kg Calcium 9.2 (8.6-10.3) mg/dl POC Ioniz Calcium [place]ho[place] (1.12-1.32) mmol/l Magnesium (1.7-2.4) mg/dl Total Bilirubin 0.8 (0.2-1.0) mg/dl AST 19 (13-39) U/L ALT 14 (7-52) U/L Alkaline Phosphatase 99 (34-104) U/L Total Protein 7.1 (6.0-8.3) gm/dl Albumin 4.4 (3.4-5.0) gm/dl Globulin 2.7 (2.5-4.0) gm/dl Albumin/Globulin Ratio 1.6 (0.9-2) Urine Color Urine Appearance (Clear) Urine pH (4.5-7.5) Ur Specific [place] (1.000-1.030) Urine Protein (Negative) Urine Glucose (UA) (Negative) Urine Ketones (Negative) Urine Blood (Negative) Urine Nitrite (Negative) Urine Bilirubin (Negative) Urine Urobilinogen (Negative) Ur Leukocyte Esterase (Negative) Urine WBC (Auto) (0-5) /hpf Urine RBC (Auto) (0-2) /hpf U Hyaline Cast (Auto) (0-2) /lpf U Epithel Cells (Auto) (0-2) /hpf Urine Bacteria (Auto) (None Seen) Urine Osmolality (500-800) mOsm/kg Ur Random Sodium mmol/L Medications Administered Current Inpatient Medications Acetaminophen (Acetaminophen 325 Mg Tab) 650 mg PO QID [facility]ARAZ Stop: 04/27/24 20:59 Last Admin: 03/28/24 21:12 Dose: 650 mg Al Hydrox/Mg Hydrox/Simethicone (Aluminum/Magnesium Susp 30 Ml Udc) 15 ml PO Q4H PRN PRN Reason: Dyspepsia Stop: 04/27/24 20:17 Atorvastatin Calcium (Atorvastatin 20 Mg Tab) 20 mg PO HS FARAZ Stop: 04/27/24 20:59 Last Admin: 03/28/24 21:12 Dose: 20 mg Azelastine HCl (Azelastine Hcl 0.1% Nasal 200 Sprays/27,400 Mcg Btl) 1 sprays NA BID FARAZ Stop: 04/27/24 20:59 Last Admin: 03/28/24 21:10 Dose: Not Given Bupropion HCl (Bupropion Sr 150 Mg Tabcr) 150 mg PO BID [facility]ARAZ Stop: 04/27/24 20:59 Last Admin: 03/28/24 21:12 Dose: 150 mg Citalopram Hydrobromide (Citalopram 20 Mg Tab) 20 mg PO QAM [facility] Stop: 04/28/24 08:59 Enoxaparin Sodium (Enoxaparin Inj 40 Mg/0.4 Ml Syr) 40 mg SQ QAM [facility]AR[facility] Stop: 04/28/24 08:59 Famotidine (Famotidine 20 Mg Tab) 20 mg PO DAILY PRN PRN Reason: Heartburn Stop: 04/27/24 20:17 Gabapentin (Gabapentin 600 Mg Tab) 600 mg PO BID [facility] Stop: 04/27/24 20:59 Last Admin: 03/28/24 21:12 Dose: 600 mg Guaifenesin (Guaifenesin 600 Mg Tabcr) 600 mg PO Q12 [facility] Stop: 04/28/24 08:59 Ketorolac Tromethamine (Ketorolac Tromethamine 15 Mg/Ml Vial) 15 mg IV Q6H [facility]AR[facility] Stop: 03/31/24 06:59 Last Admin: 03/29/24 06:17 Dose: 15 mg Lidocaine (Lidocaine 5% 1 Patch) 1 patch TD DAILY@2100 [facility] Stop: 04/28/24 20:59 Lisinopril (Lisinopril 10 Mg Tab) 10 mg PO QAM [facility] Stop: 04/28/24 08:59 Magnesium Hydroxide (Magnesium Hydroxide Susp 30 Ml Udc) 30 ml PO Q12H PRN PRN Reason: Constipation Stop: 04/27/24 20:17 Melatonin (Melatonin 3 Mg Tab) 6 mg PO HS PRN PRN Reason: Sleep Stop: 04/27/24 20:59 Last Admin: 03/29/24 01:53 Dose: 6 mg Miscellaneous (Remove Lidoderm Patch) 1 each N/A DAILY@0900 [facility] Stop: 04/28/24 08:59 Morphine Sulfate (Morphine Sulfate 4 Mg/Ml 1 Ml Carp\Vial) 4 mg IV Q4H PRN PRN Reason: Severe Pain (Scale 7, 8, 9,10) Stop: 04/11/24 20:17 Ondansetron HCl (Ondansetron Inj 2 Mg/Ml 2 Ml Vial) 4 mg IV Q6H PRN PRN Reason: Nausea Stop: 04/27/24 20:17 Pantoprazole Sodium (Pantoprazole 40 Mg Tab) 40 mg PO BID [facility] Stop: 04/27/24 20:59 Last Admin: 03/28/24 21:44 Dose: 40 mg Polyethylene Glycol (Polyethylene (Miralax) 17 Gm Pack) 17 gm PO DAILY PRN PRN Reason: Constipation Stop: 04/27/24 20:17 Senna/Docusate Sodium (Docusate Sodium/Senna 50/8.6mg Tab) 1 tab PO BID [facility] Stop: 04/27/24 20:59 Last Admin: 03/28/24 21:12 Dose: 1 tab Tramadol HCl (Tramadol Hcl 50 Mg Tablet) 50 mg PO Q4H PRN PRN Reason: Mild-Mod Pain (Scale 1-6) Stop: 04/27/24 20:17 Last Admin: 03/28/24 21:12 Dose: 50 mg
[2024-03-29] MEDS: ENOXAPARIN INJ 40 MG/0.4 ML SYR SQ SCH (09:23)
[2024-03-29] MEDS: CITALOPRAM 20 MG TAB PO SCH (09:23)
[2024-03-29] MEDS: FAMOTIDINE 20 MG TAB PO PRN (09:24)
[2024-03-29] MEDS: lisinopril 10 MG TAB PO SCH (09:24)
[2024-03-29] MEDS: guaiFENesin 600 MG TABCR PO SCH (09:38)
--- NOTE | 2024-03-29 12:31 | Surgery Consultation ---
Date of Consultation March 29, 2024 Assessment & Plan (1) Left rib fracture: Pulmonary care IS pain control no surgical issues History of Present Illness Attending Physician: Chuck Pantoja MD History of Present Illness This is a 69YO female who presented to the emergency department for chest pain after a fall onto her left side. A CT scan shows an 8th rib fracture without a PTX. She denies any abdominal symptoms. Allergies Allergy/AdvReac Type Severity Reaction Status Date / Time codeine AdvReac Mild GI UPSET Verified 03/28/24 17:13 oxycodone AdvReac Mild N/V per Verified 03/28/24 17:13 records propoxyphene AdvReac Mild GI UPSET Verified 03/28/24 17:13 Home Medications Medication Instructions Recorded Confirmed Type amitriptyline 25 mg tablet 25 mg PO HS PRN Sleep 04/30/22 03/28/24 History atorvastatin 20 mg tablet 20 mg PO HS 04/30/22 03/28/24 History gabapentin 600 mg tablet 600 mg PO BID 04/30/22 03/28/24 History citalopram 20 mg tablet 20 mg PO QAM 10/01/22 03/28/24 History azelastine 137 mcg (0.1 %) nasal 1 spray intranasal BID 01/05/23 03/28/24 History spray aerosol betamethasone dipropionate 0.05 % 1 applic topical QAM PRN skin 01/05/23 03/28/24 History topical ointment dryness lisinopril 10 mg tablet 10 mg PO QAM 01/05/23 03/28/24 History bupropion HCl 150 mg tablet,12 hr 150 mg PO BID 03/28/24 03/28/24 History sustained-release Patient History Medical History History of dysphagia "still has problems from time to time" Anxiety and depression Hx of migraines Sleep apnea cpap Morbid obesity with BMI of 45.0-49.9, adult Pulmonary embolism pt states was over 20+ years ago "due to pneumonia"--was on coumadin for awhile, but then taken off, no issues since Hearing deficit Hyperlipidemia Surgical History Hx of shoulder surgery Right Shoulder Arthroscopy Rotator Cuff Repair, Subacromial Decompression, Chondroplasty, synovectomy, Distal clavial excision History of esophagogastroduodenoscopy (EGD) History of colonoscopy last 04/2022 @ [facility] History of section History of total hysterectomy with bilateral salpingo-oophorectomy (BSO) History of carpal tunnel release of both wrists History of fusion of cervical spine normal ROM History of total right hip replacement History of total left hip replacement History of tooth extraction History of tonsillectomy Family History Father Hypertension Mother Breast cancer Hypertension Other No family history of adverse response to anesthesia Social History (Updated 03/28/24 @ 19:43 by Corina Washington PA-C) Smoking Status: Never smoker Second Hand Exposure: No; Do You Dip or Chew Tobacco: No; Hx Alcohol Use: Yes Alcohol type: beer Hx Substance Use: No Preferred Language: Khmer Communication Ability: Effective Net Finisher Required: No Beliefs That Will Affect Care: None Current Living Situation: Family Current Living Situation Comment: lives with sister Feels Safe at Home: Yes Safety Concerns: Feels Safe At This Time Assistive Devices: CPAP and Glasses Review of Systems Constitutional: no fever, no chills and no anorexia Eyes: no problem reported Ear, Nose, Mouth, Throat: no problem reported Respiratory: + dyspnea, + pain on inspiration and + p ain with cough; no cough and no hemoptysis Cardiovascular: + chest pain Gastrointestinal: no abdominal pain, no nausea, no vomiting and no change in bowel habits Genitourinary: no dysuria Musculoskeletal: no back pain Integumentary: no problem reported Neurologic: no localized weakness and no generalized weakness Psychiatric: no behavioral changes Endocrine: no fatigue Hematologic / Lymphatic: no easy bleeding and no easy bruising Physical Exam Constitutional: WD/WN, vitals as above Eyes: PERRL, conjunctivae normal, anicteric sclerae ENMT: external ear and nose normal, oropharynx normal Neck: trachea midline Respiratory: normal respiratory effort; no respiratory distress and does not use accessory muscles Cardiovascular: RRR, no murmur, no edema Gastrointestinal (Abdomen): Inspection/Auscultation: abdomen normal to inspection and normal bowel sounds; abdomen not distended Percussion/Palpation: abdomen soft; abdomen nontender, no guarding and abdomen not rigid Musculoskeletal: Head/Neck/Chest: normocephalic and head atraumatic Skin: no rashes, warm and dry Psychiatric: Orientation: alert Results & Data Vital Signs (Past 12 Hours) Vital Signs Temp Pulse Pulse Resp BP BP Pulse Ox 03/29/24 11:43 36.5 C 69 18 120/71 96 03/29/24 07:41 36.5 C 66 18 93/57 L 96 03/29/24 07:31 67 03/29/24 03:48 36.5 C 73 16 100/64 96 O2 Del Method 03/29/24 11:43 Room Air 03/29/24 07:41 Room Air 03/29/24 07:31 03/29/24 03:48 Room Air Diagnostic Findings CT chest diagnostic w con, CT thoracic spine w con CLINICAL HISTORY: LEFT FLANK TRAUMA TECHNIQUE: Multidetector row helical CT of the chest was performed with intravenous contrast. Coronal and sagittal reformations were obtained. Automated dose lowering techniques and/or adjustment according to patient size were utilized for this exam. Dedicated images of the thoracic spine were obtained. CT DOSE: 2009.86 mGy.cm Comparison: Comparison is made to CT chest 02/24/2017 FINDINGS: Lungs and pleura: Atelectasis is seen and there is bronchial wall thickening. There is a 2 mm nodule in the right upper lobe (series 6 image 69). No pneumothorax is seen. Heart and pericardium: Heart size is normal. No pericardial effusion. Vessels: Moderate atherosclerotic changes in the aorta and coronary arteries. Mediastinum and gisella: Subcentimeter lymph nodes are seen. Chest wall and lower neck: Unremarkable. Abdomen: For findings below the diaphragm, please refer to CT of the abdomen dated the same. Bones: There is a fracture of the posterior left eighth rib. IMPRESSION: 1. Left eighth rib fracture is seen without evidence of pneumothorax or other acute abnormality. 2. Bronchial wall thickening may represent infectious/inflammatory airways disease.
--- NOTE | 2024-03-29 16:43 | Discharge Summary ---
Date of Service March 29, 2024 Admission HPI Per Admitting Provider This is a 69-year-old female who has significant past medical history of hypertension, hyperlipidemia, depression with anxiety, history of PE, history of falls who presents to ED after sustaining a fall 2 days ago now reporting significant left-sided chest wall pain. She was walking and stepped on stones and fell on her left side. She denies LOC or hitting her head. "It knocked the breath out of me." Her pain is currently a 6/10. When she moves it makes it much worse. Symptoms are improved with rest. At home she took a gabapentin and 3 Tylenol w/o relief. She has been able to eat. She denies any nausea and vomiting. She did have a BM this morning, but it was painful for her. Her bowel movements are regular and she denies melena or hematochezia. She denies recent illness, fever, chills, sweats, lightheadedness, dizziness, shortness breath, cough, dysuria, increased urgency paredes with urination, melena or hematochezia. In ED patient made hemodynamically stable. Imaging revealed a left eighth rib fracture. She received analgesia, admission was recommended to assist with pain control. Patient [id number] is at bedside was helps elicit history. Her medications were reconciled at bedside. Patient outpatient medical [facility]. Admission Exam Per Admitting Provider General: Lying comfortably in bed, not in distress, on room air HEENT: EOMI, RIVERA, MMM Chest: Left chest wall tenderness due to rib fracture. Clear breath sounds bilaterally but unable to take deep breath due to pain CVS: Regular rate and rhythm, normal heart sounds, no murmur Abdomen: Soft, non tender, not distended, normal bowel sounds Neuro: Awake, alert, oriented, conversing well, non focal Extremities: No cyanosis, clubbing or edema Principal Diagnosis Fall, 8th rib fx Discharge Exam General: sitting up comfortably in bed, not in distress, on room air HEENT: EOMI, RIVERA, MMM Chest: Left chest wall tenderness to palp. due to rib fracture. CTAB CVS: Regular rate and rhythm, normal heart sounds, no murmur Abdomen: Soft, non tender, not distended, normal bowel sounds Neuro: Awake, alert, oriented, conversing well, moves extremities Extremities: No LE edema, moves extremities Discharge Data Allergies Allergy/AdvReac Type Severity Reaction Status Date / Time codeine AdvReac Mild GI UPSET Verified 03/28/24 17:13 oxycodone AdvReac Mild N/V per Verified 03/28/24 17:13 records propoxyphene AdvReac Mild GI UPSET Verified 03/28/24 17:13 Consultations 03/28/24 17:56 ED Decision to Admit Stat 03/29/24 08:55 Consult General Surgery Routine Ordered Studies 03/28/24 15:37 CT abd pelvis IV con only Stat FINDINGS: Lower chest: For findings above the diaphragm, please see CT chest performed same day. Liver: Unremarkable. No focal lesions are seen. Gallbladder and biliary tree: No calcified gallstones. Normal caliber wall. No intra- or extrahepatic biliary ductal dilation. Pancreas: Unremarkable, no focal lesions. Spleen: Unremarkable. Adrenals: Unremarkable. Kidneys and ureters: Unremarkable. Bladder: Unremarkable. Reproductive organs: Evaluation is limited by streak artifact. Bowel: Unremarkable. Lymph nodes Retroperitoneal: Unremarkable. Pelvic: Unremarkable. Mesenteric: Unremarkable. Peritoneum: Normal. Vessels: Unremarkable. Abdominal wall: Unremarkable. 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 There is partial visualization of left rib fractures better evaluated on CT chest. IMPRESSION: Please see CT chest for findings of left rib fracture. No abnormalities are seen below the diaphragm. CT chest diagnostic w con Stat FINDINGS: Lungs and pleura: Atelectasis is seen and there is bronchial wall thickening. There is a 2 mm nodule in the right upper lobe (series 6 image 69). No pneumothorax is seen. Heart and pericardium: Heart size is normal. No pericardial effusion. Vessels: Moderate atherosclerotic changes in the aorta and coronary arteries. Mediastinum and gisella: Subcentimeter lymph nodes are seen. Chest wall and lower neck: Unremarkable. Abdomen: For findings below the diaphragm, please refer to CT of the abdomen dated the same. Bones: There is a fracture of the posterior left eighth rib. IMPRESSION: 1. Left eighth rib fracture is seen without evidence of pneumothorax or other acute abnormality. 2. Bronchial wall thickening may represent infectious/inflammatory airways disease. CT lumbar spine w con Stat CT thoracic spine w con Stat FINDINGS: Lower chest: For findings above the diaphragm, please see CT chest performed same day. Liver: Unremarkable. No focal lesions are seen. Gallbladder and biliary tree: No calcified gallstones. Normal caliber wall. No intra- or extrahepatic biliary ductal dilation. Pancreas: Unremarkable, no focal lesions. Spleen: Unremarkable. Adrenals: Unremarkable. Kidneys and ureters: Unremarkable. Bladder: Unremarkable. Reproductive organs: Evaluation is limited by streak artifact. Bowel: Unremarkable. Lymph nodes Retroperitoneal: Unremarkable. Pelvic: Unremarkable. Mesenteric: Unremarkable. Peritoneum: Normal. Vessels: Unremarkable. Abdominal wall: Unremarkable. 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 There is partial visualization of left rib fractures better evaluated on CT chest. IMPRESSION: Please see CT chest for findings of left rib fracture. No abnormalities are seen below the diaphragm. Hospital Course (1) Left rib fracture: (2) Hypertension: (3) Anxiety: Plan This is a 69-year-old female who has significant past medical history of hypertension, hyperlipidemia, depression with anxiety, history of PE, history of falls who presents to ED after sustaining a fall 2 days ago now reporting significant left-sided chest wall pain. Mechanical fall with left rib fracture and pain- CT shows Left eighth rib fracture is seen without evidence of pneumothorax or other acute abnormality. Bronchial wall thickening may represent infectious/inflammatory airways disease but denies any respiratory symptoms whatsoever and hence will hold off on antibiotics. In pain on admission. Started on lidoderm patch, tid tylenol, q6hr toradol with prn tramadol if needed- states she did not like oxycodone. IS. Consulted with gen. surgery given trauma to chest - no new recommendations - continue IS Pt feels well and is interested in discharge home. HTN- stable, continue lisinopril Hyponatremia- mild, Could be in setting of pain. Received ivf in ED and improved. Current Na level 131 - follow up as outpt. Anxiety depression- on citalopram. On amitriptyline for sleep and on Wellbutrin for weight loss. Total Time Total Time Spent Total Time Spent (In Minutes): 40 Discharge Plan Discharge Items Patient Disposition: Home - Self-Care Reason For Visit: LEFT 8TH RIB FRACTURE, CHEST PAIN Discharge Diagnosis: Fall, 8th rib fx Activity: Per Instructions section Non-emergency contact: Primary Care Provider Call non-emergency contact if: you have any medication questions and your symptoms worsen Follow-up/Referrals: Ofe Sorensen PA-C [Primary Care Provider] - (Date & Time 04/04/2024 2:00 PM Provider Lamin Dubon MD Department [facility] ) Diet: Regular Addtl Attending Provider Instructions: Follow up with your primary care provider within 1 week. The appointment was scheduled for you for for 04/04/2024. For pain, take Tylenol 1,000 mg three times a day. Continue using lidocaine patch. For more severe pain, you can take tramadol as needed as prescribed. Continue using incentive spirometer. Pending Studies at Discharge: No Stand-Alone Forms: My [facility], Smoking Cessation Medications and DC Order Prescriptions: New tramadol 50 mg Tablet 50 mg PO Q4H PRN (Reason: pain) Qty: 10 0RF guaifenesin [Mucinex] 600 mg Tablet Extended Release 12hr 600 mg PO Q12 Qty: 10 0RF Continued gabapentin 600 mg Tablet 600 mg PO BID atorvastatin 20 mg Tablet 20 mg PO HS amitriptyline 25 mg Tablet 25 mg PO HS PRN (Reason: Sleep) citalopram 20 mg tablet 20 mg PO QAM lisinopril 10 mg Tablet 10 mg PO QAM azelastine 137 mcg (0.1 %) Aerosol,[place] 1 spray INTRANASAL BID Rx Instructions: administer into each nostril betamethasone dipropionate 0.05 % Ointment 1 applic TOPICAL QAM PRN (Reason: skin dryness) bupropion HCl 150 mg tablet sustained-release 12 hr 150 mg PO BID Discharge Orders: Discharge Order (Routine); Ordered 03/29/24 Ordered By: Chuck Pantoja Admission Data Admit Date/Time: 03/28/24 18:12 Attending Provider: Chuck Pantoja Admit Provider: Aron Quick Primary Care Provider: Ofe Sorensen Other Providers: Aron Quick; Carlos Mcdaniel
[2024-03-29] MEDS ORDERED: LIDOCAINE 5% 1 PATCH TD SCH (21:00)
== END 2024-03-29 18:19 | disposition home or self-care (01) | DRG 206 ==
LOC: ED 15:30 → SUATTDRO 18:12 → 2W 18:12